=== PATIENT | female | born 1975 | race Two or more races ===

== ENCOUNTER → 2024-11-18 | Outpatient (CLI) | payer OTHER, SELFPAY ==
[2024-11-18 16:17] LABS: Basophils # (Auto) 0.1 Thou/mm3 (0.0-0.2); Basophils % (Auto) 1 % (0-2.5); Eosinophils # (Auto) 0.0 Thou/mm3 (0.0-0.5); Eosinophils % (Auto) 1 % (0-10); Hematocrit 38.6 % (36.0-46.0); Hemoglobin 12.6 g/dL (12.0-16.0); Immature Granulocytes Auto 0.02 Thou/mm3 (0.00-0.00); Lymphocytes # (Auto) 1.8 Thou/mm3 (1.0-4.8); Lymphocytes % (Auto) 29 % (10-50); Mean Corpuscular HGB Conc 32.6 g/dl (31.0-37.0); Mean Corpuscular Hemoglobin 30.9 pg (25.0-35.0); Mean Corpuscular Volume 95 fL (80-100); Monocytes # (Auto) 0.5 Thou/mm3 (0.0-0.8); Monocytes % (Auto) 9 % (0-12); Neutrophils # (Auto) 3.7 Thou/mm3 (1.8-7.7); Neutrophils % (Auto) 61 % (37-80); Nucleated Red Blood Cell # 0.00 Thou/mm3 (0.00-0.00); Nucleated Red Blood Cell % 0 /100 WBC (0); Platelet Count 212 Thou/mm3 (140-440); RDW Standard Deviation 46.7 fL (36.4-46.3); Red Blood Count 4.08 Miln/mm3 (4.00-5.20); White Blood Count 6.1 Thou/mm3 (3.6-11.0)
[2024-11-18 16:34] LABS: Alanine Aminotransferase 36 U/L (10-49); Albumin, Serum 4.5 gm/dL (3.5-5.0); Albumin/Globulin Ratio 1.9 (1.2-2.2); Alkaline Phosphatase 83 U/L (46-116); Anion Gap 13 (7-16); Aspartate Amino Transferase 43 U/L (0-34); BUN/Creatinine Ratio 19 Ratio (12-20); Bilirubin,Total 0.6 mg/dL (0.3-1.2); Blood Urea Nitrogen 17 mg/dL (9-23); Calcium 10.3 mg/dL (8.3-10.6); Calcium (Corrected) 10.3 mg/dL (8.5-10.1); Carbon Dioxide 25.4 mMol/L (20.0-31.0); Chloride 105 mMol/L (98-107); Creatinine (Component) 0.9 mg/dL (0.6-1.3); Globulin 2.4 gm/dL (2.3-3.5); Glucose 139 mg/dL (74-106); Osmolality,Calculated 288 (275-295); Potassium 4.6 mMol/L (3.4-5.1); Sodium 143 mMol/L (136-145); Total Protein 6.9 gm/dL (5.7-8.2); eGFR > 60 See Note
== END | disposition home or self-care (01) ==
PROVIDERS: PCP Physician Assistant; Referring Provider Orthopaedic Surgery; Visit Provider Orthopaedic Surgery
DX: Z79.1 Long term (current) use of non-steroidal anti-inflammatories (NSAID) (principal)
CPT/HCPCS: 36415; 80053; 85025

== ENCOUNTER 2025-01-22 09:15 | Inpatient (IN) | payer MEDICAID, SELFPAY ==
[2025-01-22] VITALS (11 sets, daily range): BP systolic 111–136; BP diastolic 61–80; PULSE 73–129; RESP 16–95; TEMP 36.3–37; O2SAT 92–100; BMI 31.1
--- NOTE | 2025-01-22 09:40 | EKG_ITS ---
[facility] Test Date: 2025-01-22 Pat Name: MARCIN DAWSON Department: Room: - Gender: Female [employer] Former: : 1975 Requested By: Moises Rasheed Order Number: [id number] Reading MD: Moises Rasheed Measurements Intervals [place] Rate: 107 P: 46 WV: 135 QRS: 14 QRSD: 89 T: 29 QT: 300 QTc: 401 Interpretive Statements SINUS TACHYCARDIA ABNORMAL RHYTHM ECG Compared to ECG 02/11/2023 09:36:48 Sinus rhythm no longer present /store/[id number].pdf
--- NOTE | 2025-01-22 09:40 | XR_ITS ---
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 Perihilar edema. Large right pleural effusion Right subclavian Port-A-Cath tip satisfactory position Moderate osteopenia IMPRESSION: Mild CHF Large right pleural effusion
--- NOTE | 2025-01-22 09:40 | PD.EDRME ---
Rapid Medical Screening Exam RME Arrival date/time: 01/22/25 09:15 49-year-old female with a history of type 2 diabetes presents to the emergency room with a chief complaint of bilateral lower extremity swelling and shortness of breath x 3 days I have greeted and performed a focused initial assessment of this patient. A comprehensive ED assessment and evaluation of the patient, analysis of all test results, and completion of the medical decision making process will be conducted by additional ED providers. Chief Complaint: General Adult/Misc Complain Time Seen by Provider: 01/22/25 09:28 Vital signs: Vital Signs Temperature 98.6 F 01/22/25 09:35 Pulse Rate 118 H 01/22/25 09:35 Respiratory Rate 22 H 01/22/25 09:35 Blood Pressure 119/72 01/22/25 09:35 Pulse Oximetry (%) 93 L 01/22/25 09:35 Oxygen Delivery Method Room Air 01/22/25 09:35 Vital signs reviewed by provider: Yes Exam: Bilateral lower extremity +3 pitting edema Clear bilateral lung sounds Clinical Impression: Acute kidney injury/congestive heart failure/
[2025-01-22 10:06] LABS: Basophils # (Auto) 0.1 Thou/mm3 (0.0-0.2); Basophils % (Auto) 1 % (0-2.5); Eosinophils # (Auto) 0.0 Thou/mm3 (0.0-0.5); Eosinophils % (Auto) 0 % (0-10); Hematocrit 26.8 % (36.0-46.0); Hemoglobin 8.9 g/dL (12.0-16.0); Immature Granulocytes Auto 1.00 Thou/mm3 (0.00-0.00); Lymphocytes # (Auto) 2.4 Thou/mm3 (1.0-4.8); Lymphocytes % (Auto) 15 % (10-50); Mean Corpuscular HGB Conc 33.2 g/dl (31.0-37.0); Mean Corpuscular Hemoglobin 30.2 pg (25.0-35.0); Mean Corpuscular Volume 91 fL (80-100); Monocytes # (Auto) 1.2 Thou/mm3 (0.0-0.8); Monocytes % (Auto) 7 % (0-12); Neutrophils # (Auto) 11.7 Thou/mm3 (1.8-7.7); Neutrophils % (Auto) 71 % (37-80); Nucleated Red Blood Cell # 0.07 Thou/mm3 (0.00-0.00); Nucleated Red Blood Cell % 0 /100 WBC (0); Platelet Count 154 Thou/mm3 (140-440); RDW Standard Deviation 48.3 fL (36.4-46.3); Red Blood Count 2.95 Miln/mm3 (4.00-5.20); White Blood Count 16.4 Thou/mm3 (3.6-11.0)
--- NOTE | 2025-01-22 10:13 | XR_ITS ---
Examination: CT abdomen with intravenous contrast CT pelvis with intravenous contrast 2-D coronal reconstructions 2-D sagittal reconstructions Date and time of exam: 01/22/2025 at 12:35 p.m. INDICATION: Epigastric pain. COMPARISON: Bilateral diagnostic mammograms 05/25/2022. Chest radiograph 01/22/2025 at 9:43 a.m. CTDI: vol (mGy) 8.84 DLP: (mGycm) 538 Technique: Multiple axial sections of the abdomen and pelvis have been obtained. 64 slice high-resolution scanner used. 3 mm axial sections have been obtained, post intravenous injection of 60 mL of Isovue-370 2-D sagittal, coronal reconstructions obtained. Low dose protocols were performed. One or more of the following dose reduction techniques were used; automated exposure control, adjustment of the mA and/or KV according to patient size, use of iterative reconstruction technique. FINDINGS: Lower chest: Since prior mammograms, there has been interval development of diffuse pathologic skin thickening throughout the partially major right breast with multiple heterogeneously enhancing/rim-enhancing lesions in the right breast parenchyma, the largest in the lower inner quadrant measuring 6.3 cm TR on axial image 23. There is also less pronounced skin thickening of the partially imaged left breast. A moderate right-sided pleural effusion is present with compressive atelectasis. There is lymphadenopathy at the partially imaged right hilum. Minimal left-sided pleural fluid is seen. There is diffuse interlobular septal thickening and bronchial wall thickening in the right lung, greater on the right side. Nodularity is also present in both lungs, including dominant in store representative nodule in the right lower lobe measuring 9 mm (axial 21). Nonspecific dense subpleural opacification in the partially region lingula measures 2 cm wide in the [id number] (axial image 1). Liver: There are numerous heterogeneously hypoenhancing lobulated masses throughout the liver parenchyma consistent with metastases. A in store representative lesion in hepatic segment 7 measures approximately 3.6 cm AP on axial image 52, exhibiting some confluence with adjacent posterior located smaller lesion and larger medially located lesion. There is prominent diffuse hepatomegaly. Biliary system: No calcified gallstones or findings concerning for acute cholecystitis or biliary ductal obstruction. Spleen: Within normal limits of size. No solid mass. Pancreas: No apparent infiltrative mass. No main pancreatic duct dilatation. No acute inflammatory changes. Adrenal glands: Bilateral hypoenhancing adrenal nodules are present which are suspicious for metastatic disease. Kidneys and ureters: There is downward displacement of the right kidney by the enlarged liver. No solid mass. No calculi or hydroureteronephrosis. No evidence for acute pyelonephritis. Bladder: Suboptimal assessment due to under distention but no calculus is seen. Pelvic organs: Mild pelvic floor prolapse. Anteverted uterus. Very mild ascites and mild peritoneal thickening. Lymph nodes/retroperitoneum: Enlarged lymph nodes are present in the abdomen, including one abutting the medial side of the right hepatic lobe measuring 0.5 cm short axis (axial image 100). This exhibits homogeneous enhancement. A dominant heterogeneously hypoenhancing lymph node adjacent to the left diaphragmatic crura likely represents a metastatic lymph node that measures 0.7 cm short axis (axial image 71). No hematoma. Vessels: No abdominal aortic aneurysm. Bowel/Peritoneal cavity: No bowel obstruction. Colonic diverticulosis without evidence for acute diverticulitis. No evidence for acute appendicitis. Mild perihepatic ascites and pelvic ascites. No free air. Abdominal/Pelvic wall: Diffuse edematous skin thickening and subcutaneous edema identified in the abdominal wall, most pronounced on the right anteriorly. No evidence for abdominal wall abscess or mass. Skin thickening and subcutaneous edema also noted in the proximal thighs, greater on the right. Musculoskeletal: No recent fractures or aggressive bone lesions detected. 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 Additional lymph node metastases and bilateral adrenal metastases identified in the upper abdomen. Very mild ascites noted.
[2025-01-22 10:20] LABS: INR 1.3 (0.9-1.3); Partial Thromboplastin Time 32.9 Seconds (22.0-36.0); Prothrombin Time 13.3 Seconds (9.0-12.2)
[2025-01-22 10:22] LABS: B-Type Natriuretic Peptide 32 pg/mL (0-100)
[2025-01-22 10:47] LABS: Alanine Aminotransferase 422 U/L (10-49); Albumin, Serum 3.5 gm/dL (3.5-5.0); Albumin/Globulin Ratio 1.3 (1.2-2.2); Alkaline Phosphatase 376 U/L (46-116); Anion Gap 10 (7-16); Aspartate Amino Transferase 341 U/L (0-34); BUN/Creatinine Ratio 19 Ratio (12-20); Bilirubin,Total 1.1 mg/dL (0.3-1.2); Blood Urea Nitrogen 21 mg/dL (9-23); Calcium 9.6 mg/dL (8.3-10.6); Calcium (Corrected) 10.0 mg/dL (8.5-10.1); Carbon Dioxide 20.6 mMol/L (20.0-31.0); Chloride 98 mMol/L (98-107); Creatinine (Component) 1.1 mg/dL (0.6-1.3); Estimated Creatinine Clearance 58.2 mL/min (>60); Globulin 2.6 gm/dL (2.3-3.5); Glucose 188 mg/dL (74-106); LDH (Lactate Dehydrogenase) 2178 U/L (120-246); Magnesium 2.2 mg/dL (1.6-2.6); Osmolality,Calculated 266 (275-295); Potassium 4.4 mMol/L (3.4-5.1); Sodium 129 mMol/L (136-145); Total Protein 6.1 gm/dL (5.7-8.2); Troponin I < 0.002 ng/mL (0.0-0.045); eGFR > 60 See Note
[2025-01-22] MEDS: FAMOTIDINE INJ 10 MG/ML VIAL 2 ML 20 MG IVP (10:55)
--- NOTE | 2025-01-22 13:09 | PD.EDWEAK ---
ED Weakness RME/HPI General Chief complaint: General Adult/Misc Complain Stated complaint: JAYY LEG PAIN, WEAK, ABD SWELLING Time Seen by Provider: 01/22/25 09:28 Arrival date/time: 01/22/25 09:15 Limitations: no limitations RME / HPI RME / HPI Narrative: 01/22/25 09:15 49-year-old female with a history of type 2 diabetes presents to the emergency room with a chief complaint of bilateral lower extremity swelling and shortness of breath x 3 days I have greeted and performed a focused initial assessment of this patient. A comprehensive ED assessment and evaluation of the patient, analysis of all test results, and completion of the medical decision making process will be conducted by additional ED providers. DR. DIAZ MAIN ED EVALUATION: 49 year old female with history of left breast CA, s/p lumpectomy in 2022 and radiation therapy in 2023, diabetes presents to the ED for evaluation of abdominal discomfort and bloating sensation, leg swelling, and shortness of breath beginning 3 days ago. Accompanied by a nonproductive cough. Reports her shortness of breath is aggravated with exertion and lying flat Adding she is requiring multiple pillow to sleep at night. Denies any history of similar symptoms. Denies fevers, chills, chest pain, abdominal pain, n/v/d, or urinary symptoms. Exam: Bilateral lower extremity +3 pitting edema Clear bilateral lung sounds Impression: Acute kidney injury/congestive heart failure/ Related Data Home Medications ?Medication ?Instructions ?Recorded ?Confirmed amitriptyline 10 mg tablet 10 mg PO HS 07/17/22 02/11/23 semaglutide 14 mg tablet (Rybelsus) 14 mg PO QDAY 07/17/22 02/11/23 Previous Rx's ?Medication ?Instructions ?Recorded docusate sodium 100 mg capsule 100 mg PO BID #40 caps 02/12/23 (Colace) hydrocodone 5 mg-acetaminophen 325 1 tab PO Q6H PRN pain (scale score 02/12/23 mg tablet 7-10) #10 tabs ibuprofen 600 mg tablet 600 mg PO Q8H PRN pain (scale 02/12/23 score 4-6) #15 tabs hydrocodone 5 mg-acetaminophen 325 1 tab PO BID PRN pain #10 tabs 04/15/23 mg tablet Allergies Allergy/AdvReac Type Severity Reaction Status Date / Time No Known Allergies Allergy Verified 01/22/25 09:17 Review of Systems Review of Systems Systems Reviewed: All systems reviewed, normal except as documented Past Medical History Past Medical History RESPIRATORY: Positive Asthma REPRODUCTIVE: Positive Breast Cancer (left breast) and Previous Pregnancies ENDOCRINE: Positive Endocrine Disorders and Diabetes Mellitus Type 2 PSYCHO/SOCIAL: Positive Depression and Anxiety OTHER HISTORY: Positive Cancer and Breast Cancer (left breast) Surgical History SURGICAL: Positive Lumpectomy, Tubal Ligation and Section Social History SMOKING STATUS: Never smoker ED Exam General Limitations: Present no limitations General appearance: Present alert and in no apparent distress Head Head exam: Present atraumatic Eye Eye exam: Present normal appearance, PERRL and EOMI ENT ENT exam: Present normal exam, normal oropharynx and mucous membranes moist Neck Neck exam: Present normal inspection, full ROM and trachea midline Chest Chest inspection: Present normal inspection and symmetric chest wall rise Respiratory Respiratory exam: Present normal lung sounds bilaterally and other (mildly increased respiratory rate) Cardiovascular Cardiovascular exam: Present regular rate, normal rhythm and normal heart sounds Abdominal Exam Abdominal exam: Present soft, normal bowel sounds and other (Upper mid abdomen anteriorly was firm with possible mass ); Absent tenderness, guarding, rebound or rigidity Extremities Exam Extremities exam: Present full ROM and other (2+ pitting edema BLE to the pretibial area ) Back Exam Back exam: Present normal inspection and full ROM Neurological Exam Neurological exam: Present alert, oriented X3 and CN II-XII intact Psychiatric Psychiatric exam: Present normal affect and normal mood Skin Skin exam: Present warm, dry, intact and pallor Course Quality Measures none Orders Category Date Time Status Admit to Inpatient Status Routine Admission 01/22/25 15:46 Active Patient Condition Routine Admission 01/22/25 15:46 Ordered Activity as Tolerated Routine Care 01/22/25 15:48 Ordered Bedside COVID-19 Antigen Test NOW Care 01/22/25 15:42 Active COVID-19 Screening Questionnaire NOW Care 01/22/25 15:[address] Screening NOW Care 01/22/25 10:13 Active Lifestyle Consultant NOW Care 01/22/25 10:03 Active Continuous Pulse Oximetry NOW Care 01/22/25 10:03 Completed Decision to Admit X1 Care 01/22/25 15:19 Completed EKG (ED ONLY) *Do not use* NOW Care 01/22/25 09:40 Completed Fluid restriction QSHIFT Care 01/22/25 15:51 Active In and Out Catheter X1 Care 01/22/25 15:46 Active Insert IV NOW Care 01/22/25 10:03 Active Intake and Output QSHIFT Care 01/22/25 16:00 Ordered Notify provider NEEDED Care 01/22/25 15:46 Active Obtain weight daily Care 01/22/25 15:48 Active Strict Intake and Output Q1H Care 01/22/25 16:00 Ordered Strict Intake and Output Q1H Care 01/22/25 17:00 Ordered Strict Intake and Output Q1H Care 01/22/25 18:00 Ordered Strict Intake and Output Q1H Care 01/22/25 19:00 Ordered Strict Intake and Output Q1H Care 01/22/25 20:00 Ordered Strict Intake and Output Q1H Care 01/22/25 21:00 Ordered Strict Intake and Output Q1H Care 01/22/25 22:00 Ordered Strict Intake and Output Q1H Care 01/22/25 23:00 Ordered Strict Intake and Output Q1H Care 01/23/25 00:00 Ordered Strict Intake and Output Q1H Care 01/23/25 01:00 Ordered Strict Intake and Output Q1H Care 01/23/25 02:00 Ordered Strict Intake and Output Q1H Care 01/23/25 03:00 Ordered Strict Intake and Output Q1H Care 01/23/25 04:00 Ordered Strict Intake and Output Q1H Care 01/23/25 05:00 Ordered Strict Intake and Output Q1H Care 01/23/25 06:00 Ordered Strict Intake and Output Q1H Care 01/23/25 07:00 Ordered Strict Intake and Output Q1H Care 01/23/25 08:00 Ordered Strict Intake and Output Q1H Care 01/23/25 09:00 Ordered Strict Intake and Output Q1H Care 01/23/25 10:00 Ordered Strict Intake and Output Q1H Care 01/23/25 11:00 Ordered Strict Intake and Output Q1H Care 01/23/25 12:00 Ordered Strict Intake and Output Q1H Care 01/23/25 13:00 Ordered Strict Intake and Output Q1H Care 01/23/25 14:00 Ordered Strict Intake and Output Q1H Care 01/23/25 15:00 Ordered Strict Intake and Output Routine Care 01/22/25 15:52 Ordered Diet Carbohydrate Consistent Diet 01/22/[address] abdomen pelvis w con Stat Exams 01/22/25 10:13 Completed EKG (ED Only) Stat Exams 01/22/25 09:40 Draft US venous doppler LE BI Routine Exams 01/22/25 15:54 Taken XR chest 2V Stat Exams 01/22/25 09:40 Completed B-Type Natriuretic Peptide Stat Lab 01/22/25 09:45 Completed CBC AM DRAW Lab 01/23/25 05:00 Ordered CBC Stat Lab 01/22/25 09:45 Completed Comprehensive Metabolic Panel AM DRAW Lab 01/23/25 05:00 Ordered Comprehensive Metabolic Panel AM DRAW Lab 01/24/25 05:00 Ordered Comprehensive Metabolic Panel AM DRAW Lab 01/25/25 05:00 Ordered Comprehensive Metabolic Panel Stat Lab 01/22/25 09:45 Completed Drug Screen,Urine Stat Lab 01/22/25 14:22 Completed LDH (Lactate Dehydrogenase) Stat Lab 01/22/25 09:45 Completed Magnesium AM DRAW Lab 01/23/25 05:00 Ordered Magnesium AM DRAW Lab 01/24/25 05:00 Ordered Magnesium AM DRAW Lab 01/25/25 05:00 Ordered Magnesium Stat Lab 01/22/25 09:45 Completed Partial Thromboplastin Time Stat Lab 01/22/25 09:45 Completed Phosphorous AM DRAW Lab 01/23/25 05:00 Ordered Phosphorous AM DRAW Lab 01/24/25 05:00 Ordered Phosphorous AM DRAW Lab 01/25/25 05:00 Ordered Prothrombin Time with INR Stat Lab 01/22/25 09:45 Completed Troponin I Stat Lab 01/22/25 09:45 Completed Urinalysis, C/S if Indicated Stat Lab 01/22/25 14:15 Completed Urine Culture Stat Lab 01/22/25 14:15 Received Famotidine Inj [Pepcid Inj] Med 01/22/25 10:13 Discontinued 20 mg IVP X1 ONE Furosemide Inj [Lasix Inj] Med 01/22/25 10:04 Discontinued 40 mg IVP X1 ONE Furosemide [Lasix] Med 01/22/25 15:51 Discontinued 40 mg PO X1 ONE HYDROcodone*/APAP 5/325 [[place] 5/325] Med 01/22/25 15:46 Active 1 tab PO Q4HR PRN Heparin Inj Med 01/22/25 22:00 Discontinued 5,000 unit SC Q8HR Ibuprofen Tab [Motrin Tab] Med 01/22/25 15:46 Active 600 mg PO Q6H PRN Ondansetron Inj [Zofran Inj] Med 01/22/25 15:46 Active 4 mg IVP Q6H PRN Senna [Senokot] Med 01/22/25 15:46 Active 1 tab PO QDAY PRN metOLazone [Zaroxolyn] Med 01/22/25 10:04 Discontinued 5 mg PO X1 ONE Code Status Routine Oth 01/22/25 15:46 Ordered Oxygen Delivery NOW RT 01/22/25 10:03 Active Vital Signs Vital signs: Vital Signs Temperature 98.6 F 01/22/25 09:35 Pulse Rate 118 H 01/22/25 09:35 Respiratory Rate 22 H 01/22/25 09:35 Blood Pressure 119/72 01/22/25 09:35 Pulse Oximetry (%) 93 L 01/22/25 09:35 Oxygen Delivery Method Room Air 01/22/25 09:35 Pulse ox is 93% on room air which is low. Weakness MDM Narrative MDM Narrative:: Claudia Delgado am scribing for and in the presence of Dr. Diaz. Patient data External records reviewed:: [facility] previous records Clinical information provided by:: patient Social determinants that could affect healthcare access:: none Patient has the following chronic illnesses:: left breast CA, s/p lumpectomy in 2022 and radiation therapy in 2023, diabetes How is presenting disease/condition affected by chronic disease/condition?: exacerbated by Evaluation data The following diagnostics were reviewed and interpreted by me:: lab results, radiology exam(s) and EKG tracing(s) (EKG @ 12:30 PM. Sinus tachycardia, rate 107, no STEMI. ) Lab and/or radiology exams considered but not ordered:: None Interpretation Summary: Ordering Physician: Moises Turner Date of Service: 01/22/25 Procedure(s): XR chest 2V Accession Number(s): [id number] cc: Moises Turner; Seferino Brenner MD~ 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 Perihilar edema. Large right pleural effusion Right subclavian Port-A-Cath tip satisfactory position Moderate osteopenia IMPRESSION: Mild CHF Large right pleural effusion Dictated By: Seferino Brenner MD Signed By: <Electronically signed by Seferino Brenner MD in [place]> 01/22/25 0952 Ordering Physician: Pb Diaz MD Date of Service: 01/22/25 Procedure(s): CT abdomen pelvis w con Accession Number(s): [id number] cc: Pb Diaz MD; Brian Castano ; Robert Olmos DO~ Examination: CT abdomen with intravenous contrast CT pelvis with intravenous contrast 2-D coronal reconstructions 2-D sagittal reconstructions Date and time of exam: 01/22/2025 at 12:35 p.m. INDICATION: Epigastric pain. COMPARISON: Bilateral diagnostic mammograms 05/25/2022. Chest radiograph 01/22/2025 at 9:43 a.m. CTDI: vol (mGy) 8.84 DLP: (mGycm) 538 Technique: Multiple axial sections of the abdomen and pelvis have been obtained. 64 slice high-resolution scanner used. 3 mm axial sections have been obtained, post intravenous injection of 60 mL of Isovue-370 2-D sagittal, coronal reconstructions obtained. Low dose protocols were performed. One or more of the following dose reduction techniques were used; automated exposure control, adjustment of the mA and/or KV according to patient size, use of iterative reconstruction technique. FINDINGS: Lower chest: Since prior mammograms, there has been interval development of diffuse pathologic skin thickening throughout the partially major right breast with multiple heterogeneously enhancing/rim-enhancing lesions in the right breast parenchyma, the largest in the lower inner quadrant measuring 6.3 cm TR on axial image 23. There is also less pronounced skin thickening of the partially imaged left breast. A moderate right-sided pleural effusion is present with compressive atelectasis. There is lymphadenopathy at the partially imaged right hilum. Minimal left-sided pleural fluid is seen. There is diffuse interlobular septal thickening and bronchial wall thickening in the right lung, greater on the right side. Nodularity is also present in both lungs, including dominant videotape sales representative nodule in the right lower lobe measuring 9 mm (axial 21). Nonspecific dense subpleural opacification in the partially region lingula measures 2 cm wide in the [id number] (axial image 1). Liver: There are numerous heterogeneously hypoenhancing lobulated masses throughout the liver parenchyma consistent with metastases. A videotape sales representative lesion in hepatic segment 7 measures approximately 3.6 cm AP on axial image 52, exhibiting some confluence with adjacent posterior located smaller lesion and larger medially located lesion. There is prominent diffuse hepatomegaly. Biliary system: No calcified gallstones or findings concerning for acute cholecystitis or biliary ductal obstruction. Spleen: Within normal limits of size. No solid mass. Pancreas: No apparent infiltrative mass. No main pancreatic duct dilatation. No acute inflammatory changes. Adrenal glands: Bilateral hypoenhancing adrenal nodules are present which are suspicious for metastatic disease. Kidneys and ureters: There is downward displacement of the right kidney by the enlarged liver. No solid mass. No calculi or hydroureteronephrosis. No evidence for acute pyelonephritis. Bladder: Suboptimal assessment due to under distention but no calculus is seen. Pelvic organs: Mild pelvic floor prolapse. Anteverted uterus. Very mild ascites and mild peritoneal thickening. Lymph nodes/retroperitoneum: Enlarged lymph nodes are present in the abdomen, including one abutting the medial side of the right hepatic lobe measuring 0.5 cm short axis (axial image 100). This exhibits homogeneous enhancement. A dominant heterogeneously hypoenhancing lymph node adjacent to the left diaphragmatic crura likely represents a metastatic lymph node that measures 0.7 cm short axis (axial image 71). No hematoma. Vessels: No abdominal aortic aneurysm. Bowel/Peritoneal cavity: No bowel obstruction. Colonic diverticulosis without evidence for acute diverticulitis. No evidence for acute appendicitis. Mild perihepatic ascites and pelvic ascites. No free air. Abdominal/Pelvic wall: Diffuse edematous skin thickening and subcutaneous edema identified in the abdominal wall, most pronounced on the right anteriorly. No evidence for abdominal wall abscess or mass. Skin thickening and subcutaneous edema also noted in the proximal thighs, greater on the right. Musculoskeletal: No recent fractures or aggressive bone lesions detected. 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 Additional lymph node metastases and bilateral adrenal metastases identified in the upper abdomen. Very mild ascites noted. Dictated By: Robert Olmos DO Signed By: <Electronically signed by Robert Olmos DO in [place]> 01/22/25 1311 Ordering Physician: Pablo Askew DO Date of Service: 01/22/25 Procedure(s): US venous doppler LE BI Accession Number(s): [id number] cc: Brian Castano ; Robert Olmos DO; Pablo Askew DO~ Examination: Venous duplex lower extremity sonogram, bilateral. Date and time of exam: 01/22/2025 at 4:11 p.m. INDICATION: Bilateral leg pain and swelling for 1 week. History of left breast cancer. Technique: Multiple sonographic images of the deep venous system have been obtained. B-mode/2-D grayscale imaging of vascular structures and Doppler spectral analysis (waveforms) and color performed Both legs are examined. Findings: Deep venous systems do not demonstrate abnormal echogenicity. All visualized deep veins exhibit compressibility. All visualized deep veins exhibit augmentation. Pulsatile waveforms identified bilaterally. Impression: Negative for deep vein thrombosis in either lower extremity. Pulsatile waveforms may be due to increased right heart pressure. Dictated By: Robert Olmos DO Signed By: <Electronically signed by Robert Olmos DO in [place]> 01/22/25 1645 Medications / Prescriptions Medications or Prescriptions considered but not ordered:: None Medication administrations:: Medication Administration History Hydrocodone Bitart/Acetaminophen (Hydrocodone/Apap 5/325 Tablet) 1 tab PO Q4HR PRN PRN Reason: PAIN SCALE 4-10(Mod-Sev Stop: 01/27/25 15:45 Heparin Sodium (Porcine) (Heparin Sod Inj 5000 Unit/Ml Vial) 5,000 unit SC Q12HR [place] Stop: 02/05/25 20:59 Ibuprofen (Ibuprofen Tab 600 Mg Tablet) 600 mg PO Q6H PRN PRN Reason: Pain Scale 1-3 (Mild or fever) Stop: 02/21/25 15:45 Ondansetron HCl (Ondansetron Inj 2 Mg/Ml Inj 2 Ml) 4 mg IVP Q6H PRN; Protocol PRN Reason: NAUSEA OR VOMITING Stop: 02/21/25 15:45 Sennosides (Senna Tablet) 1 tab PO QDAY PRN; Protocol PRN Reason: constipation Stop: 02/21/25 15:45 Discontinued Medications Famotidine (Famotidine Inj 10 Mg/Ml Vial 2 Ml) 20 mg IVP X1 ONE Stop: 01/22/25 10:14 Last Admin: 01/22/25 10:55 Dose: 20 mg Documented By: SANA Furosemide (Furosemide Inj 10 Mg/Ml 4ml Vial) 40 mg IVP X1 ONE Stop: 01/22/25 10:05 Last Admin: 01/22/25 10:53 Dose: Not Given Documented By: VG Non-Admin Reason: Discontinued Furosemide (Furosemide 40 Mg Tablet) 40 mg PO X1 ONE Stop: 01/22/25 15:52 Last Admin: 01/22/25 16:01 Dose: 40 mg Documented By: VG Heparin Sodium (Porcine) (Heparin Sod Inj 5000 Unit/Ml Vial) 5,000 unit SC Q8HR [place] Stop: 02/05/25 21:59 Metolazone (Metolazone 2.5 Mg Tablet) 5 mg PO X1 ONE Stop: 01/22/25 10:05 Last Admin: 01/22/25 10:53 Dose: Not Given Documented By: VG Non-Admin Reason: Discontinued See above Consultations Consultation(s) initiated? (list below): Yes Consultation #1 (Physician, Specialty, Details): I spoke with radiology oncology Dr. Koo. Discussed patients PMHx, HPI, ED course, exam findings, labs, and radiology results. He agrees to see patient in his office on Saturday. Consultation #2 (Physician, Specialty, Details): I spoke with hospitalist team for admission. Diagnosis Weakness Differential Diagnosis: anemia, hypothyroidism, sepsis and dehydration Most likely diagnosis given after review of the tests above:: Right pleural effusion Dyspnea Metastatic breast cancer Admission Indicated Admission indicated?: indicated Admission Request Was there a request for admission?: Yes Admission Attestation Admission request attestation: Discussed case with [] from Hospitalist service regarding admission. Discussed patients ED course, exam findings, labs, and radiology results. The Hospitalist [agrees,declines] to accept the patient for admission. Disposition Plan Disposition Plan: Admit Discharge Plan Plan Patient Disposition: Admit Acute Care w/in Hospital Problem List Clinical Impression: Pleural effusion, right, Breast cancer, Dyspnea
[2025-01-22 14:29] LABS: Collection Type, Urine Clean Catch
[2025-01-22 14:46] LABS: Bacteria,Urine Rare; Bilirubin,Urine Negative (Negative); Blood,Urine Trace (Negative); Clarity,Urine Clear (Clear/Hazy); Color,Urine Yellow (Lt Yel-Yel); Glucose, Urine Negative (Negative); Ketones,Urine 1+ (Negative); Leukocyte Esterase,Urine Positive (Negative); Nitrite,Urine Positive (Negative); PH,Urine 6.0 (5.0-7.0); Protein,Urine 1+ (Neg - Trace); RBC,Urine 7 /hpf (0-3); Specific Gravity,Urine 1.044 (1.001-1.035); Squamous Epithelial Cell,Urine 1 /hpf (0-5); Urobilinogen,Urine Negative mg/dL (0.0-1.0); WBC,Urine 8 /hpf (0-5)
[2025-01-22 14:49] LABS: Amphetamine/Methamp Scrn,U Negative (Negative); Barbiturate Screen,Urine Negative (Negative); Benzodiazepines Screen,Urine Negative (Negative); Benzoylecgonine Screen, Ur Negative (Negative); Fentanyl Screen,Urine Negative (Negative); Opiate Screen,Urine Negative (Negative); THC Screen,Urine Negative (Negative)
[2025-01-22 15:02] LABS: Culture Indicated,Urine Yes
--- NOTE | 2025-01-22 15:54 | XR_ITS ---
Examination: Venous duplex lower extremity sonogram, bilateral. Date and time of exam: 01/22/2025 at 4:11 p.m. INDICATION: Bilateral leg pain and swelling for 1 week. History of left breast cancer. Technique: Multiple sonographic images of the deep venous system have been obtained. B-mode/2-D grayscale imaging of vascular structures and Doppler spectral analysis (waveforms) and color performed Both legs are examined. Findings: Deep venous systems do not demonstrate abnormal echogenicity. All visualized deep veins exhibit compressibility. All visualized deep veins exhibit augmentation. Pulsatile waveforms identified bilaterally. Impression: Negative for deep vein thrombosis in either lower extremity. Pulsatile waveforms may be due to increased right heart pressure.
--- NOTE | 2025-01-22 15:55 | ESHP_ITS ---
<Statement entered by Pawan Patel MD - 01/23/25 14:47> Patient seen and examined at bedside. I discussed and supervised with the international affairs vice president physician who took care of this patient. I personally saw and examined the patient. I agree with most of the assessment and plan. Plan of care discussed with attending Dr. Askew. Pawan Patel MD PGY-2 Documentation for date of: 01/22/25 HPI History of Present Illness History of present illness: 49-year-old female with past medical history T2DM and left invasive ductal carcinoma (Onco Dr. Koo) status post lumpectomy 2022 and radiation 2023 presents with bilateral lower extremity swelling shortness of breath x 3 days. Patient reported bilateral leg pain x 6 days, ibuprofen did not help. Reported abdominal pain in mid epigastric x 2 days, bloated in nature. Reported shortness of breath x 3 days. Reported all symptoms are new to her. Last time visited oncologist was late November with Dr. Cabello. Next appointment in February. Since last radiation that was 2023, no scan after. Denied history of smoking, alcohol, drug use. ED: Vital signs stable except for tachycardic 118 and tachypneic 22 Labs WBC 16.4 hemoglobin 8.9 PT 13.3 sodium 129 AST 341 ALT 422 alk phos 378 lactate dehydrogenase 2178 positive UA. CXR mild CHF, large right pleural effusion. CTAP showed metastasis to right breast, liver, lymph nodes, adrenal glands. Dr. Koo was consulted. Patient is instructed to call Dr. Koo's office to see Dr. Koo outpatient on Saturday at 1 PM. Exam Vital Signs Temp Pulse Resp BP Pulse Ox O2 Del Method 97.8 F 100 16 124/70 95 Room Air 01/22/25 15:14 01/22/25 15:14 01/22/25 15:14 01/22/25 15:14 01/22/25 15:14 01/22/25 15:14 Narrative Exam General: AOx3, Angolan speaking, no acute distress, able to speak full sentences HEENT: NC/AT, mucous membranes moist, bilateral sclera anicteric Cardiovascular: tachycardia, S1/S2 present, no murmurs appreciated Pulmonary: diminished breath sounds bilateral lower lobes, no rales/rhonchi/wheezes Abdominal: soft, tenderness to palpation on LUQ, distended, no rebound/guarding, normal bowel sounds present Musculoskeletal: normal ROM, no peripheral edema Skin: warm and dry, intact, no rashes, Neuro: CN II-XII intact, no focal deficits Results: Labs 01/23/25 05:39 01/23/25 05:39 Labs: Short CBC 01/22/25 Range/Units 09:45 WBC 16.4 H (3.6-11.0) Thou/mm3 Hgb 8.9 L (12.0-16.0) g/dL Hct 26.8 L (36.0-46.0) % Plt Count 154 (140-440) Thou/mm3 BMP 01/22/25 09:45 Sodium 129 L Potassium 4.4 Chloride 98 Carbon Dioxide 20.6 BUN 21 Creatinine 1.1 Glucose 188 H Calcium 9.6 Cardiac Enzymes 01/22/25 Range/Units 09:45 Troponin I < 0.002 (0.0-0.045) ng/mL Liver Function 01/22/25 Range/Units 09:45 Total Bilirubin 1.1 (0.3-1.2) mg/dL AST 341 H (0-34) U/L ALT 422 H (10-49) U/L Alkaline Phosphatase 376 H (46-116) U/L Albumin 3.5 (3.5-5.0) gm/dL Urine 01/22/25 Range/Units 14:15 Urine Color Yellow (Lt Yel-Yel) Urine Clarity Clear (Clear/Hazy) Urine pH 6.0 (5.0-7.0) Ur Specific [place] 1.044 H (1.001-1.035) Urine Protein 1+ A (Neg - Trace) Urine Glucose (UA) Negative (Negative) Quality Measures Quality Measures VTE prophylaxis Medications Home Medications and Allergies Home Medications ?Medication ?Instructions ?Recorded ?Confirmed ?Type semaglutide 14 mg tablet (Rybelsus) 14 mg PO QDAY 05/1001/22/25 History anastrozole 1 mg tablet 1 mg PO .q day 01/22/2510/09 History Allergies Allergy/AdvReac Type Severity Reaction Status Date / Time No Known Allergies Allergy Verified 01/22/25 09:17 Visit Medications Hydrocodone Bitart/Acetaminophen (Hydrocodone/Apap 5/325 Tablet) 1 tab PO Q4HR PRN PRN Reason: PAIN SCALE 4-10(Mod-Sev Stop: 01/27/25 15:45 Furosemide (Furosemide 40 Mg Tablet) 40 mg PO X1 ONE Stop: 01/22/25 15:52 Heparin Sodium (Porcine) (Heparin Sod Inj 5000 Unit/Ml Vial) 5,000 unit SC Q8HR [place] Stop: 02/05/25 21:59 Ibuprofen (Ibuprofen Tab 600 Mg Tablet) 600 mg PO Q6H PRN PRN Reason: Pain Scale 1-3 (Mild or fever) Stop: 02/21/25 15:45 Ondansetron HCl (Ondansetron Inj 2 Mg/Ml Inj 2 Ml) 4 mg IVP Q6H PRN; Protocol PRN Reason: NAUSEA OR VOMITING Stop: 02/21/25 15:45 Sennosides (Senna Tablet) 1 tab PO QDAY PRN; Protocol PRN Reason: constipation Stop: 02/21/25 15:45 Discontinued Medications Famotidine (Famotidine Inj 10 Mg/Ml Vial 2 Ml) 20 mg IVP X1 ONE Stop: 01/22/25 10:14 Last Admin: 01/22/25 10:55 Dose: 20 mg Furosemide (Furosemide Inj 10 Mg/Ml 4ml Vial) 40 mg IVP X1 ONE Stop: 01/22/25 10:05 Last Admin: 01/22/25 10:53 Dose: Not Given Metolazone (Metolazone 2.5 Mg Tablet) 5 mg PO X1 ONE Stop: 01/22/25 10:05 Last Admin: 01/22/25 10:53 Dose: Not Given Assessment & Plan Plan # 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 Oncologist, Dr. Cabello. CT showed metastasis to right breast, liver, lymph nodes, adrenal gland. Labs are largely deranged: WBC 16.4 hemoglobin 8.9 PT 13.3 sodium 129 AST 341 ALT 422 alk phos 378 lactate dehydrogenase 2178. Patient was unaware of metastasis. Reported last appointment with Dr. Cabello was late November, next appointment is in February. Patient was not aware of any metastasis previously. Reported no imaging after radiation in 2023. Patient reported significant orthopnea requiring multiple pillows. Abdominal pain and bloatedness likely due to metastasis to liver. Plan: - Dr. Koo was consulted in ED, recommeded seeing patient on Saturday in clinic at 1 PM - Dr. Cabello, oncologist, consulted to see patient over the weekend, appreciate recs - Pending Echo - Plan to do thoracentesis tomorrow and send to patho to rule out any metastasis to lungs # Bilateral pitting edema # Large right pleural effusion # Congestive heart failure 3+ bilateral pitting edema with acute onset shortness of breath. No history of cardiac diseases. History of breast radiation. DDx: cardiac-related CHF vs. hepatocardiac syndrome vs. CHF-induced pleural effusion vs. metastasis to lungs Plan: - Low sodium diet - Pending Echo - Diuresis Lasix - Ultrasound DVT in the setting of cancer Health Maintenance: Code status: Full DVT prophylaxis: Heparin GI prophylaxis: None Diet: Low sodium diet Melendez: No Lines: PIV Supplemental O2: None Disposition: Med Tele Assessment and plan discussed with my attending physician Dr. Patel and Dr. Kumar (PGY-2). Dr. Saucedo (PGY-1) ? administrative resident Attending Provider Attestation/Addendum I or my resident physicians have discussed care with the ED physician and I have made the decision to admit. I have discussed and was present for the essential components of the history, physical examination, diagnosis, and treatment plan with the resident. I agree with the patient's care as documented by the resident and amended herein by me. Thaddeus Askew DO. Although this document has been carefully reviewed, there may still be some phonetic and other typographical errors. These errors are purely grammatical due to imperfections in the software program and should not be construed in any way to compromise the substance of the patient's medical care during this visit. Patient seen and evaluated in the ED patient is a 49-year-old female with a significant past medical history of invasive ductal carcinoma of the left breast, status postlumpectomy and partial left mastectomy, was never treated with chemotherapy however was treated with anastrozole which she is currently on and radiation therapy with Dr. Koo. The patient was reported to have refused chemotherapy at the time due to being scared of the medication and when offered anastrozole she decided to take that instead. The patient arrived in the ED for shortness of breath, cough and worsening lower extremity edema. In the ED, the patient was tachycardic with a pulse of 106, tachypneic with a respiratory rate of 35, afebrile and on room air SpO2 92%. The patient also demonstrated cough. Significant labs included a WBC of 16.4, hemoglobin 8.9 with no obvious signs of bleeding, neutrophils and lymphocyte count was within normal limits however there was elevation in immature granulocytes. And sodium of 129. Albumin was 3.5, urinalysis was positive, LDH was 2178, EKG demonstrated sinus tachycardia and her liver enzymes were elevated to include an AST of 341, ALT 422 and did not ALP of 376. CT abdomen pelvis in short demonstrated diffuse invasive inflammatory breast carcinoma on the right with multiple right breast masses. A moderate right pleural effusion was also noted, diffuse hepatomegaly with numerous hypodense masses consistent with metastasis were noted. Additional lymph node metastasis and bilateral adrenal metastasis were also identified. Mild ascites was also noted. At this time, we will admit the patient to med/tele for numerous lab abnormalities, possible UTI, possible tumor lysis syndrome and workup for metastatic breast cancer. Patient follows with Dr. Brennen booker, oncology, last seen in November, he was consulted during this visit, we appreciate recommendations. We will order a CT head with and without contrast to establish any brain metastasis, we will attempt a thoracentesis tomorrow, blood and urine cultures are pending, DVT ultrasound of the bilateral lower extremities was also ordered however negative for DVT. An echocardiogram was ordered, low-sodium diet was also ordered and the patient was placed on Lasix 40 mg daily. I also started the patient on coverage for community-acquired pneumonia with ceftriaxone and azithromycin for any potential bacteria causes of her cough. Appreciate all specialist recommendations, will continue to monitor closely, we did unfortunately have to explain to the patient that her breast cancer has returned and has metastasized to multiple regions of her body. Her son was at bedside at time of this conversation.
--- NOTE | 2025-01-22 16:52 | ECHO_ITS ---
Patient Info Name: Kym Zapata Age: 49 years : 1975 Gender: Female Ht: 157 cm Wt: 77 kg BSA: 1.87 m2 BP: 100 / 59 mmHg Heart Rhythm: Tachycardia Exam Date: 01/24/2025 9:18 AM Admit Date: 01/22/2025 Site: [facility] Patient Status: I Technical Quality: Fair Exam Type: CA echo doppler complete Project Lead: Koki Barrios Ordering Physician: Pawan Patel Study Info Indications Orthopnea, SOB, edema - Primary Location: [id number] Left Ventricular Outflow Tract Name Value Normal LVOT 2D LVOT Diameter 1.6 cm LVOT Doppler LVOT Peak Velocity 153 cm/s LVOT Mean Gradient 4 mmHg LVOT VTI 30 cm LVOT VTI/AV VTI Ratio 0.7 LVOT Stroke Volume 61 ml Pulmonic Valve Name Value Normal PV Doppler PV Peak Velocity 145 cm/s Mitral Valve Name Value Normal MV Annular TDI MV Septal e' Velocity 11.7 cm/s MV Lateral e' Velocity 16.8 cm/s MV e' Average 14.25 cm/s Tricuspid Valve Name Value Normal TV Regurgitation Doppler TR Peak Velocity 356 cm/s Estimated PAP/RSVP RA Pressure 5 mmHg <=5 PA Systolic Pressure 56 mmHg <36 RV Systolic Pressure 56 mmHg <36 TV Annular TDI TV Lateral Dotty s' Velocity 23.1 cm/s >=9.5 Aorta Name Value Normal Ascending Aorta Ao Root Diameter (MM) 2.1 cm Ao Root Diam Index (MM) 1.1 cm/m2 Ao Root Diameter (2D) 2.3 cm Ao Root Diam Index (2D) 1.2 cm/m2 Aortic Valve Name Value Normal AV 2D/MM AV Cusp Sep (MM) 1.9 cm AV Doppler AV Peak Velocity 215 cm/s AV Mean Gradient 10 mmHg AV VTI 43 cm AV Area (Cont Eq VTI) 1.4 cm2 >=3.0 AV Area (Cont Eq Shon) 1.4 cm2 AV DI (Shon) 0.71 AV Regurgitation 2D LVOT Area 2.0 cm2 Ventricles Name Value Normal LV Dimensions 2D/MM IVS Diastolic Thickness (2D) 0.6 cm 0.6-0.9 LVID Diastole (2D) 5.1 cm 3.8-5.2 LVIW Diastolic Thickness (2D) 0.7 cm 0.6-0.9 LVID Systole (2D) 2.5 cm 2.2-3.5 LVOT Diameter 1.6 cm LV Mass (2D Cubed) 108.34 g 67.00-162.00 LV Mass Index (2D Cubed) 58 g/m2 43-95 Relative Wall Thickness (2D) 0.27 <=0.42 IVS/LVIW Diastolic Thickness (2D) 0.86 0.00-1.50 LV Fractional Shortening/Ejection Fraction 2D/MM LV Fractional Shortening (2D) 51 % 27-45 LV EF (2D Flaquitoichraysaz) 82 % RV Dimensions 2D/MM TV Lateral Dotty s' Velocity 23.1 cm/s >=9.5 Atria Name Value Normal LA Dimensions LA Dimension (2D) 3.5 cm 2.7-3.8 LA Dimen Index (2D) 1.9 cm/m2 LA Dimension (MM) 4.0 cm 2.7-3.8 Left Ventricle Left ventricular chamber dimension is normal. Unable to accurately determine LVEF. There is normal geometry noted in the left ventricle. Left ventricular segmental wall motion is normal. There is indeterminate diastolic function in the left ventricle. Right Ventricle Right ventricular chamber dimension is normal. Right ventricular systolic function is normal. Left Atrium Left atrial chamber dimension is mildly enlarged. Right Atrium Right atrial chamber dimension is normal. Aortic Valve The aortic valve is trileaflet. There is no aortic valve sclerosis. There is no aortic valve stenosis with a peak velocity of 215 cm/s, mean gradient of 10 mmHg, and aortic valve area of 1.4 cm2. There is no aortic valve regurgitation. Pulmonic Valve The pulmonic valve is normal. There is no pulmonic valve stenosis. There is no pulmonic regurgitation. Mitral Valve The mitral valve has normal leaflets. There is no mitral valve stenosis. There is no mitral valve regurgitation. Tricuspid Valve The tricuspid valve leaflets are normal. There is no tricuspid valve stenosis. There is mild to moderate tricuspid valve regurgitation. Moderate pulmonary hypertension, estimated pulmonary arterial systolic pressure is 56 mmHg and systemic blood pressure of 100 mmHg in systole. Pericardium/Pleural The pericardium appears normal. There is no pericardial effusion. No pleural effusion visualized. Inferior Vena Cava Normal inferior vena cava with >50% collapse upon inspiration consistent with normal right atrial pressure, 5 mmHg. Aorta The aortic measurements are indexed to age and body surface area. Summary 1. The echocardiogram is normal by two-dimensional, color flow imaging, and Doppler interrogation. 2. Left ventricle size is normal and systolic function is normal. Estimated ejection fraction is 60-65%. There is indeterminate diastolic function. There is normal geometry noted. 3. Right ventricle chamber size is normal and systolic function is normal. Estimated RVSP is 56 mmHg. 4. There is mild to moderate tricuspid valve regurgitation. 5. The left atrium is mildly enlarged. Report Signatures Finalized by Jay Jones on 01/24/2025 10:54 AM
--- NOTE | 2025-01-22 17:46 | ESCONSULT_ITS ---
RE: MARCIN DAWSON : 1975 DATE OF CONSULTATION: 01/22/2025 REFERRING PHYSICIAN: Dr. Soriano. REASON FOR CONSULTATION: Relapse of the left breast cancer. HISTORY OF PRESENT ILLNESS: Ms. Dawson is a 49-year-old female with past medical history of diabetes mellitus and invasive ductal carcinoma of the left breast T2 lesion N0 MX. She refused chemotherapy in the beginning. She was on aromatase inhibitor. She is status post lumpectomy and radiation therapy and currently she is on oral chemotherapy. She mentioned to me today that she was having a pain in her right ankle area all the way to the hip area for the last 4-5 days. And then she started to have shortness of breath and coughing. She denies any nausea, vomiting. She denies any headache, epistaxis, cough, hemoptysis. She denies cardiac type of chest pain. But she did mention that she is short of breath on exertion and also does not get a lot of breath. She denies any other pain. PAST MEDICAL HISTORY: 1. Invasive ductal carcinoma of the left breast T2 N0 MX. 2. Diabetes mellitus. 3. Lumpectomy. Left breast lumpectomy status post radiation therapy. SOCIAL HISTORY: She is a nonsmoker, non-drinker. FAMILY HISTORY: Irrelevant. ALLERGIES: NOT KNOWN. PHYSICAL EXAMINATION: GENERAL: She is alert. VITAL SIGNS: She is afebrile. HEENT: Pupils are reactive to light and accommodation. Sclerae nonicteric. NECK: Supple. There is no JVD. LUNGS: Good air entry bilaterally. There is increased dullness to percussion on the right side. HEART: Regular. ABDOMEN: Soft. Bowel sounds are present. EXTREMITIES: There is no cyanosis or edema. CENTRAL NERVOUS SYSTEM: Patient is able to move her extremities and follow simple command. LABORATORY DATA: Per recommendation her blood work today are WBC count 16.4, hemoglobin is 8.9, hematocrit is 26.8 with normal indices, platelet count 154,000. Sodium is 129, potassium 4.4, chloride is 98, BUN is 21, creatinine 1.1. Her AST is 341, ALT is 422, alkaline phosphatase 376. LDH is 2,178. IMAGING: Her Doppler studies were negative and her CT scan of the abdomen showed diffuse invasive infiltrated ductal bilateral carcinoma on the right with multiple right breast masses, partially measured right hilar lymphadenopathy, pulmonary edema and/or lymphangitic carcinomatosis with moderate right pleural effusion. Pulmonary nodule or nodules suspicious for metastatic disease as well as diffuse hepatomegaly with numerous hypodense masses consistent with mets. Additional lymph nodes mets and bilateral adrenal mets identified in the upper abdomen. And chest x-ray showed a large right pleural effusion. ASSESSMENT AND PLAN: Patient has a recurrence of her left breast cancer, so she will be needing a thoracentesis. Also she will be needing a bone scan and CAT scan of the head with and without contrast. I will follow this patient with you and write orders regarding the clinical situation. Patient when she was diagnosed in the beginning as T2 N0 MX lesion, she refused chemotherapy at that time. She had a Port-a-Cath placed but it never had been used for a long time now. In the beginning it was flushed but then she later refused. Patient prognosis at this stage is pretty guarded. Patient asked simple questions and they were answered to her satisfaction. I will follow this patient with you and write order according to the clinical situation. I thank you Dr. Soriano for letting me participate in the care of this interesting patient. If you have any questions, please feel free to contact me. DT: 17:26:58 TT: 17:45:00 Ref: [id number] - TID: [id number]
--- NOTE | 2025-01-22 18:53 | XR_ITS ---
Examination: CT brain, without contrast. CT brain with intravenous contrast 2-D sagittal reconstructions. 2-D coronal reconstructions. 3-D reconstructions. Date and time of exam: January 22, 2025, 1938 hours INDICATIONS: Diagnosis diffuse invasive inflammatory breast cancer with multiple right breast masses right hilar lymphadenopathy pulmonary edema, lymphangitic carcinomatosis, staging CTDI: vol (mGy): 85.1 DLP: (mGycm): 1769 Technique: Multiple 1.25 mm axial sections of the brain have been obtained., Pre and post 50 cc [id number] 2-D sagittal and coronal reconstructions have been obtained. 3-D reconstructions have been obtained. Low dose protocols were performed. One or more of the following dose reduction techniques were used; automated exposure control, adjustment of the mA and/or KV according to patient size, use of iterative reconstruction technique. Findings: Ventricles are not enlarged. No mass effect upon the ventricular system No midline shift Postcontrast images demonstrate numerous cerebellar and cerebral metastatic lesions in the cerebellar regions measuring up to 14 mm, in the high parietal regions measuring up to 6 mm IMPRESSION: Numerous cerebellar and cerebral metastatic lesions without significant mass effect Brain MRI follow-up postcontrast would best assess full extent of the metastatic disease
[2025-01-22] MEDS: guaiFENesin/DM TABLET 1 EACH PO (19:19)
[2025-01-22] MEDS: AZITHROMYCIN INJ 500 MG in SODIUM CHLORIDE 0.9% 250 ML 250 ML 250 MG IV (19:52)
[2025-01-22] MEDS: cefTRIAXone/D5w 1gm IV premix 1 GM/50 ML BAG IV (19:53)
[2025-01-22] MEDS: HEPARIN SOD INJ 5000 UNIT/ML VIAL SC (20:42)
[2025-01-23] VITALS (11 sets, daily range): BP systolic 92–118; BP diastolic 56–67; PULSE 97–109; RESP 18–20; TEMP 36.2–36.8; O2SAT 94–96
[2025-01-23] MEDS: guaiFENesin/DM TABLET 1 EACH PO ×2 (04:29→21:02)
[2025-01-23 06:14] LABS: Basophils # (Auto) 0.1 Thou/mm3 (0.0-0.2); Basophils % (Auto) 0 % (0-2.5); Eosinophils # (Auto) 0.0 Thou/mm3 (0.0-0.5); Eosinophils % (Auto) 0 % (0-10); Hematocrit 23.7 % (36.0-46.0); Immature Granulocytes Auto 1.27 Thou/mm3 (0.00-0.00); Lymphocytes # (Auto) 2.1 Thou/mm3 (1.0-4.8); Lymphocytes % (Auto) 13 % (10-50); Mean Corpuscular HGB Conc 33.8 g/dl (31.0-37.0); Mean Corpuscular Hemoglobin 30.1 pg (25.0-35.0); Mean Corpuscular Volume 89 fL (80-100); Monocytes # (Auto) 1.4 Thou/mm3 (0.0-0.8); Monocytes % (Auto) 8 % (0-12); Neutrophils # (Auto) 11.8 Thou/mm3 (1.8-7.7); Neutrophils % (Auto) 71 % (37-80); Nucleated Red Blood Cell # 0.11 Thou/mm3 (0.00-0.00); Nucleated Red Blood Cell % 1 /100 WBC (0); Platelet Count 149 Thou/mm3 (140-440); RDW Standard Deviation 46.8 fL (36.4-46.3); Red Blood Count 2.66 Miln/mm3 (4.00-5.20); White Blood Count 16.6 Thou/mm3 (3.6-11.0)
[2025-01-23 06:16] LABS: Hemoglobin 8.0 g/dL (12.0-16.0)
[2025-01-23 07:17] LABS: Alanine Aminotransferase 401 U/L (10-49); Albumin, Serum 3.3 gm/dL (3.5-5.0); Albumin/Globulin Ratio 1.3 (1.2-2.2); Alkaline Phosphatase 340 U/L (46-116); Anion Gap 10 (7-16); Aspartate Amino Transferase 326 U/L (0-34); BUN/Creatinine Ratio 23 Ratio (12-20); Bilirubin,Total 0.9 mg/dL (0.3-1.2); Blood Urea Nitrogen 27 mg/dL (9-23); Calcium 9.7 mg/dL (8.3-10.6); Calcium (Corrected) 10.3 mg/dL (8.5-10.1); Carbon Dioxide 19.9 mMol/L (20.0-31.0); Chloride 98 mMol/L (98-107); Creatinine (Component) 1.2 mg/dL (0.6-1.3); Estimated Creatinine Clearance 53.5 mL/min (>60); Globulin 2.5 gm/dL (2.3-3.5); Glucose 169 mg/dL (74-106); Magnesium 2.3 mg/dL (1.6-2.6); Osmolality,Calculated 266 (275-295); Phosphorous 4.4 mg/dL (2.4-5.1); Potassium 4.9 mMol/L (3.4-5.1); Sodium 128 mMol/L (136-145); Total Protein 5.8 gm/dL (5.7-8.2); eGFR 55 See Note
[2025-01-23] MEDS: cefTRIAXone/D5w 1gm IV premix 1 GM/50 ML BAG IV (08:18)
[2025-01-23] MEDS: SIMETHICONE 80 MG CHEW PO (09:37)
[2025-01-23 11:52] LABS: Uric Acid 11.1 mg/dL (3.1-7.8)
--- NOTE | 2025-01-23 14:28 | ESPR_ITS ---
<Statement entered by Pawan Patel MD - 01/23/25 15:50> Patient seen and examined at bedside. I discussed and supervised with the internet network specialist physician who took care of this patient. I personally saw and examined the patient. I agree with most of the assessment and plan. Bedside US performed to evaluate potential thoracentesis. Right pleural effusion to small for drainage found. Noted pleural thickening, consistent with fibrosis/scarring, concerning for complex effusion. Will continue treatment with diuretics and antibiotics. Head CT showed mutliple diffuse lesions consistent with metastasis, patient informed, expressed understanding of her condition. Will discuss next steps with oncologist. Plan to continue treatment for stabilization inpatient, possible discharge in next few days. Plan of care discussed with attending Dr. Askew. Pawan Patel MD PGY-2 Documentation for date of: 01/23/25 Subjective Subjective Interval history: Patient was seen and examined at bedside. No acute events took place overnight. She denies shortness of breath on 3 L via NC. Denies chest pain, abdominal pain, constipation, dysuria, urinary urgency or frequency. 92/58 this a.m. so we held her lasix, satting 96% on 2 L via NC WBC 16.6, Hgb 8/8.9 NA 128, corrected calcium 10 point, elevated LFTs in 3 digits Exam Vital Signs Temp Pulse Resp BP Pulse Ox O2 Del Method O2 Flow Rate 98.1 F 106 H 19 106/57 L 94 L Nasal Cannula 2 01/23/25 12:00 01/23/25 12:00 01/23/25 12:00 01/23/25 12:00 01/23/25 12:00 01/23/25 12:00 01/23/25 12:00 Narrative Exam General: AOx3, Kiswahili speaking, no acute distress, able to speak full sentences HEENT: NC/AT, mucous membranes moist, bilateral sclera anicteric Cardiovascular: tachycardia, S1/S2 present, no murmurs appreciated Pulmonary: diminished breath sounds bilateral lower lobes, no rales/rhonchi/wheezes Abdominal: soft, tenderness to palpation on LUQ, distended, no rebound/guarding, normal bowel sounds present Musculoskeletal: normal ROM, present nonpitting edema of BLE. Skin: warm and dry, intact, no rashes, Neuro: CN II-XII intact, no focal deficits Objective Labs 01/23/25 05:39 01/23/25 05:39 Labs: Laboratory Results - last 24 hr 01/22/25 01/22/25 01/23/25 14:15 14:22 05:39 WBC 16.6 H RBC 2.66 L Hgb 8.0 L Hct 23.7 L MCV 89 MCH 30.1 MCHC 33.8 RDW Std Deviation 46.8 H Plt Count 149 Neut % (Auto) 71 Lymph % (Auto) 13 [place] % (Auto) 8 Eos % (Auto) 0 Baso % (Auto) 0 Neut # (Auto) 11.8 H Lymph # (Auto) 2.1 [place] # (Auto) 1.4 H Eos # (Auto) 0.0 Baso # (Auto) 0.1 Immature Gran # (Auto) 1.27 H Absolute Nucleated RBC 0.11 H Immature Gran % 8 H Nucleated RBC % 1 H Sodium 128 L Potassium 4.9 D Chloride 98 Carbon Dioxide 19.9 L Anion Gap 10 BUN 27 H Creatinine 1.2 Estim Creat Clear Calc 53.5 L eGFR 55 L BUN/Creatinine Ratio 23 H Glucose 169 H Calculated Osmolality 266 L Uric Acid 11.1 H Calcium 9.7 Corrected Calcium 10.3 H Phosphorus 4.4 Magnesium 2.3 Total Bilirubin 0.9 AST 326 H ALT 401 H Alkaline Phosphatase 340 H D Total Protein 5.8 Albumin 3.3 L Globulin 2.5 Albumin/Globulin Ratio 1.3 Ur Collection Type Clean Catch Urine Color Yellow Urine Clarity Clear Urine pH 6.0 Ur Specific [place] 1.044 H Urine Protein 1+ A Urine Glucose (UA) Negative Urine Ketones 1+ A Urine Blood Trace Urine Nitrite Positive Urine Bilirubin Negative Urine Urobilinogen (Auto) Negative Ur Leukocyte Esterase Positive Urine RBC 7 H Urine WBC 8 H Ur Squamous Epith Cells 1 Urine Bacteria Rare Ur Culture Indicated? Yes Urine Opiates Screen Negative Urine Fentanyl Screen Negative Ur Barbiturates Screen Negative U Amphetamin/Meth Scrn Negative U Benzodiazepines Scrn Negative U Cocaine Metab Screen Negative U Marijuana (THC) Screen Negative Quality Measures Quality Measures none Assessment & Plan Assessment Current Active Medications: Generic Name Dose Route Start Last Admin Trade Name Freq PRN Reason Stop Dose Admin Hydrocodone Bitart/Acetaminophen 1 tab 01/22/25 15:46 Hydrocodone/Apap 5/325 Tablet PO 01/27/25 15:45 Q4HR PRN PAIN SCALE 4-10(Mod-Sev Furosemide 40 mg 01/23/25 09:00 01/23/25 08:19 Furosemide Inj 10 Mg/Ml 4ml Vial IVP 02/22/25 08:59 Not Given QDAY [place] Guaifenesin/Dextromethorphan 1 each 01/22/25 18:41 01/22/25 19:19 Guaifenesin/Dm Tablet PO 02/21/25 18:40 1 each BID PRN Administration COUGH Heparin Sodium (Porcine) 5,000 unit 01/22/25 21:00 01/22/25 20:42 Heparin Sod Inj 5000 Unit/Ml Vial SC 02/05/25 20:59 5,000 unit On Hold: 01/23/25 07:17 Q12HR [place] Administration Ceftriaxone Sodium/Dextrose 1 gm in 50 mls @ 100 mls/hr 01/22/25 19:00 01/23/25 08:18 Rocephin/D5w 1gm Iv Premix IV 01/29/25 18:59 100 mls/hr QDAY [place] Administration Azithromycin 500 mg/ Sodium 250 mls @ 250 mls/hr 01/22/25 18:51 01/22/25 19:52 Chloride IV 01/29/25 18:50 250 mls/hr QDAY@2100 [place] Administration Ibuprofen 600 mg 01/22/25 15:46 Ibuprofen Tab 600 Mg Tablet PO 02/21/25 15:45 Q6H PRN Pain Scale 1-3 (Mild or fever) Ondansetron HCl 4 mg 01/22/25 15:46 Ondansetron Inj 2 Mg/Ml Inj 2 Ml IVP 02/21/25 15:45 Q6H PRN NAUSEA OR VOMITING Protocol Sennosides 1 tab 01/22/25 15:46 Senna Tablet PO 02/21/25 15:45 QDAY PRN constipation Protocol Plan 49-year-old female with past medical history T2DM and left invasive ductal carcinoma (Onco Dr. Koo) status post lumpectomy 2022 and radiation 2023 presented on 01/22/2025 with bilateral lower extremity swelling shortness of breath x 3 days. 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 Oncologist, Dr. Cabello. CT showed metastasis to right breast, liver, lymph nodes, adrenal gland. Labs are largely deranged: WBC 16.4 hemoglobin 8.9 PT 13.3 sodium 129 AST 341 ALT 422 alk phos 378 lactate dehydrogenase 2178. Patient was unaware of metastasis. Reported last appointment with Dr. Cabello was late November, next appointment is in February. Patient was not aware of any metastasis previously. Reported no imaging after radiation in 2023. Patient reported significant orthopnea requiring multiple pillows. Abdominal pain and bloatedness likely due to metastasis to liver. CT brain showing numerous cerebellar and cerebral metastatic lesions without significant mass effect. Plan: - Dr. Koo was consulted in ED, recommeded seeing patient on Saturday in clinic at 1 PM - Dr. Cabello, oncologist, consulted to see patient over the weekend, appreciate recs - Pending Echo # Bilateral pitting edema # Large right pleural effusion # Congestive heart failure # ?CAP 3+ bilateral pitting edema with acute onset shortness of breath. No history of cardiac diseases. History of breast radiation. DDx: cardiac-related CHF vs. hepatocardiac syndrome vs. CHF-induced pleural effusion vs. metastasis to lungs Patient had presented with cough, possibility of CAP cannot be ruled out. - Ultrasound study of the lungs did not reveal significant effusions to warrant thoracentesis. - US of BLE negative for deep vein thrombosis in either lower extremity. Plan: ? Azithromycin IV 500 mg and ceftriaxone IV 1 g daily - Low sodium diet - Pending Echo - Diuresis Lasix - Ultrasound DVT in the setting of cancer Health Maintenance: Code status: Full DVT prophylaxis: Heparin GI prophylaxis: None Diet: Low sodium diet Melendez: No Lines: PIV Supplemental O2: None Disposition: Med Tele This case was discussed with my attending physician, Dr. Askew, and senior resident, Dr Patel. Claus Arteaga DO PGY I Attending Provider Attestation/Addendum I have discussed and was present for the essential components of the history, physical examination, diagnosis, and treatment plan with the resident. I agree with the patient's care as documented by the resident and amended herein by me. Thaddeus Askew DO. Although this document has been carefully reviewed, there may still be some phonetic and other typographical errors. These errors are purely grammatical due to imperfections in the software program and should not be construed in any way to compromise the substance of the patient's medical care during this visit. Patient seen and evaluated this AM. No acute events overnight, vital signs stable, patient afebrile, WBC remains elevated approximately 16, hemoglobin low at 8 but stable, absolute neutrophil count elevated 11.8, lymphocytes okay 2.1, immature cell lines also slightly elevated. Sodium still low at 128 relatively stable and bicarb 19.9. Kidney function unremarkable, BUN 27, creatinine 1.2, patient still demonstrating transaminitis however relatively stable. Unfortunately the patient's head CT did show metastasis to the cerebellar region without mass effect. We can obtain MRI for better characterization as per oncology recommendations. Oncology recommending bone scan which likely can be done in outpatient setting however will confer with oncology. We did confer with pulmonology today for the patient's right pleural effusion which was read to be moderate, there is not enough fluid for thoracentesis. Will reach out to oncology today for recommendations, likely DC in 1 to 2 days pending specialist recommendations.
[2025-01-23] MEDS: AZITHROMYCIN INJ 500 MG in SODIUM CHLORIDE 0.9% 250 ML 250 ML 250 MG IV (20:58)
[2025-01-24] VITALS (7 sets, daily range): BP systolic 93–107; BP diastolic 54–64; PULSE 94–110; RESP 18–26; TEMP 36.1–36.6; O2SAT 94–95
[2025-01-24] MEDS: ONDANSETRON INJ 2 MG/ML INJ 2 ML 4 MG IVP ×2 (02:07→21:04)
[2025-01-24 05:12] LABS: Basophils # (Auto) 0.1 Thou/mm3 (0.0-0.2); Basophils % (Auto) 0 % (0-2.5); Eosinophils # (Auto) 0.0 Thou/mm3 (0.0-0.5); Eosinophils % (Auto) 0 % (0-10); Hematocrit 23.6 % (36.0-46.0); Immature Granulocytes Auto 1.67 Thou/mm3 (0.00-0.00); Lymphocytes # (Auto) 2.4 Thou/mm3 (1.0-4.8); Lymphocytes % (Auto) 13 % (10-50); Mean Corpuscular HGB Conc 33.9 g/dl (31.0-37.0); Mean Corpuscular Hemoglobin 30.3 pg (25.0-35.0); Mean Corpuscular Volume 89 fL (80-100); Monocytes # (Auto) 1.5 Thou/mm3 (0.0-0.8); Monocytes % (Auto) 8 % (0-12); Neutrophils # (Auto) 12.5 Thou/mm3 (1.8-7.7); Neutrophils % (Auto) 69 % (37-80); Nucleated Red Blood Cell # 0.21 Thou/mm3 (0.00-0.00); Nucleated Red Blood Cell % 1 /100 WBC (0); Platelet Count 160 Thou/mm3 (140-440); RDW Standard Deviation 47.3 fL (36.4-46.3); Red Blood Count 2.64 Miln/mm3 (4.00-5.20); White Blood Count 18.1 Thou/mm3 (3.6-11.0)
[2025-01-24 05:21] LABS: Hemoglobin 8.0 g/dL (12.0-16.0)
[2025-01-24 05:55] LABS: Alanine Aminotransferase 423 U/L (10-49); Albumin, Serum 3.4 gm/dL (3.5-5.0); Albumin/Globulin Ratio 1.3 (1.2-2.2); Alkaline Phosphatase 356 U/L (46-116); Anion Gap 11 (7-16); Aspartate Amino Transferase 360 U/L (0-34); BUN/Creatinine Ratio 26 Ratio (12-20); Bilirubin,Total 0.8 mg/dL (0.3-1.2); Blood Urea Nitrogen 36 mg/dL (9-23); Calcium 10.0 mg/dL (8.3-10.6); Calcium (Corrected) 10.5 mg/dL (8.5-10.1); Carbon Dioxide 19.7 mMol/L (20.0-31.0); Chloride 96 mMol/L (98-107); Creatinine (Component) 1.4 mg/dL (0.6-1.3); Estimated Creatinine Clearance 45.9 mL/min (>60); Globulin 2.6 gm/dL (2.3-3.5); Glucose 172 mg/dL (74-106); Magnesium 2.4 mg/dL (1.6-2.6); Osmolality,Calculated 267 (275-295); Phosphorous 4.9 mg/dL (2.4-5.1); Potassium 5.0 mMol/L (3.4-5.1); Sodium 127 mMol/L (136-145); Total Protein 6.0 gm/dL (5.7-8.2); eGFR 46 See Note
--- NOTE | 2025-01-24 08:20 | XR_ITS ---
Examination: Bone scan whole body, radioisotope Date and time of exam: January 25, 2025, 1021 hours INDICATIONS: Breast carcinoma diagnosis mastectomy post radiation therapy 2 years ago Technique: Study has been performed with intravenous administration of 22.9 mci 99M technetium MDP. Anterior, posterior whole body images are obtained. Images have been obtained including the lower extremities. Findings: Mild increased uptake over the manubrium and the anterior central neck Mildly increased uptake left anterior ribs multiple sites and posterior right ribs Increased uptake about both shoulders IMPRESSION: Positive bone scan, recommend bilateral rib series, bilateral shoulder films, cervical spine films follow-up
--- NOTE | 2025-01-24 08:24 | ESPR_ITS ---
<Statement entered by Kelly Kumar MD - 01/24/25 17:57> Patient was seen and examined at bedside. I agree on the assessment and plan on this note as documented by resident Elle Saucedo DO PGY1. 49-year-old female with past medical history as below, admitted for pleural effusion, invasive ductal carcinoma with metastasis to right breast, adrenal glands, liver, lungs and brain. Bedside ultrasound showed not enough fluid to perform thoracentesis, CT head performed and patient did confirmed the brain metastasis. Patient's family concerned and wanted to discuss findings today, informed them and updated them regarding all findings. Patient's Lasix was held today, worsening of renal function was noted, right breast lesion noted to have more drainage, will obtain ultrasound. Patient's family does not intend to follow-up with Dr. Christine, requesting consult with Dr. Koo, will call Dr. Koo in AM. Otherwise patient is scheduled for a bone scan tomorrow, elevated RVSP was noted, will follow renal function in a.m. and will consider VQ scan versus CTA to rule out PE to make sure no component of CTEPH considering patient does have underlying malignancy. Case discussed with attending Dr. Pablo Craig MD PGY-2 Documentation for date of: 01/24/25 Subjective Subjective Interval history: No acute event overnight. Patient is seen and examined by bedside. Patient reported feeling the same. SOB improved on 1L NC. Denied abdominal discomfort today. Oncologist, Dr. Cabello, following, appreciated recs: thoracentesis, CT head, bone scan. WBC continues to uptrend, 18.1 today. Renal function decreased today, will hold lasix. Bedside Ultrasound of pleural effusion was not big enough for a safe thoracentesis. Updated patient with CT head result showed numerous cerebellar and cerebral metastatic lesions. Echo 01/22 showed RVSP 56mmHg LVEF 60-65% with mild to moderate tricuspid valve regurgitation, mildly enlarged left atrium. Plan to proceed with nuclear full-body bone scan tomorrow and discharge to follow up outpatient with Dr. Cabello. Exam Vital Signs Temp Pulse Resp BP Pulse Ox O2 Del Method O2 Flow Rate 97.7 F 104 H 19 100/59 L 95 Nasal Cannula 2 01/24/25 04:00 01/24/25 04:00 01/24/25 04:00 01/24/25 04:00 01/24/25 04:00 01/24/25 04:00 01/24/25 04:00 Narrative Exam General: AOx3, Sudanese speaking, no acute distress, able to speak full sentences, on 1L NC HEENT: NC/AT, mucous membranes moist, bilateral sclera anicteric Cardiovascular: tachycardia, S1/S2 present, no murmurs appreciated Pulmonary: diminished breath sounds bilateral lower lobes, no rales/rhonchi/wheezes Abdominal: soft, no tenderness to palpation, distended, no rebound/guarding, normal bowel sounds present Musculoskeletal: normal ROM, present nonpitting edema of BLE. Skin: warm and dry, intact, no rashes, Neuro: CN II-XII intact, no focal deficits Objective Labs 01/24/25 04:34 01/24/25 04:34 Labs: Laboratory Results - last 24 hr 01/23/25 01/24/25 05:39 04:34 WBC 18.1 H RBC 2.64 L Hgb 8.0 L Hct 23.6 L MCV 89 MCH 30.3 MCHC 33.9 RDW Std Deviation 47.3 H Plt Count 160 Neut % (Auto) 69 Lymph % (Auto) 13 [place] % (Auto) 8 Eos % (Auto) 0 Baso % (Auto) 0 Neut # (Auto) 12.5 H Lymph # (Auto) 2.4 [place] # (Auto) 1.5 H Eos # (Auto) 0.0 Baso # (Auto) 0.1 Immature Gran # (Auto) 1.67 H Absolute Nucleated RBC 0.21 H Immature Gran % 9 H Nucleated RBC % 1 H Sodium 127 L Potassium 5.0 Chloride 96 L Carbon Dioxide 19.7 L Anion Gap 11 BUN 36 H Creatinine 1.4 H Estim Creat Clear Calc 45.9 L eGFR 46 L BUN/Creatinine Ratio 26 H Glucose 172 H Calculated Osmolality 267 L Uric Acid 11.1 H Calcium 10.0 Corrected Calcium 10.5 H Phosphorus 4.9 Magnesium 2.4 Total Bilirubin 0.8 AST 360 H ALT 423 H Alkaline Phosphatase 356 H Total Protein 6.0 Albumin 3.4 L Globulin 2.6 Albumin/Globulin Ratio 1.3 Quality Measures Quality Measures VTE prophylaxis Assessment & Plan Assessment Current Active Medications: Generic Name Dose Route Start Last Admin Trade Name Freq PRN Reason Stop Dose Admin Hydrocodone Bitart/Acetaminophen 1 tab 01/22/25 15:46 Hydrocodone/Apap 5/325 Tablet PO 01/27/25 15:45 Q4HR PRN PAIN SCALE 4-10(Mod-Sev Furosemide 40 mg 01/23/25 09:00 01/23/25 08:19 Furosemide Inj 10 Mg/Ml 4ml Vial IVP 02/22/25 08:59 Not Given On Hold: 01/24/25 08:13 QDAY [place] Guaifenesin/Dextromethorphan 1 each 01/22/25 18:41 01/23/25 21:02 Guaifenesin/Dm Tablet PO 02/21/25 18:40 1 each BID PRN Administration COUGH Heparin Sodium (Porcine) 5,000 unit 01/22/25 21:00 01/22/25 20:42 Heparin Sod Inj 5000 Unit/Ml Vial SC 02/05/25 20:59 5,000 unit Q12HR [place] Administration Ceftriaxone Sodium/Dextrose 1 gm in 50 mls @ 100 mls/hr 01/22/25 19:00 01/23/25 08:18 Rocephin/D5w 1gm Iv Premix IV 01/29/25 18:59 100 mls/hr QDAY [place] Administration Azithromycin 500 mg/ Sodium 250 mls @ 250 mls/hr 01/22/25 18:51 01/23/25 20:58 Chloride IV 01/29/25 18:50 250 mls/hr QDAY@2100 [place] Administration Ibuprofen 600 mg 01/22/25 15:46 Ibuprofen Tab 600 Mg Tablet PO 02/21/25 15:45 Q6H PRN Pain Scale 1-3 (Mild or fever) Ondansetron HCl 4 mg 01/22/25 15:46 01/24/25 02:07 Ondansetron Inj 2 Mg/Ml Inj 2 Ml IVP 02/21/25 15:45 4 mg Q6H PRN Administration NAUSEA OR VOMITING Protocol Sennosides 1 tab 01/22/25 15:46 Senna Tablet PO 02/21/25 15:45 QDAY PRN constipation Protocol Plan 49-year-old female with past medical history T2DM and left invasive ductal carcinoma (Onco Dr. Koo) status post lumpectomy 2022 and radiation 2023 presented on 01/22/2025 with bilateral lower extremity swelling shortness of breath x 3 days. 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 Oncologist, Dr. Cabello. CT showed metastasis to right breast, liver, lymph nodes, adrenal gland, brain. Initial labs are largely deranged: WBC 16.4 hemoglobin 8.9 PT 13.3 sodium 129 AST 341 ALT 422 alk phos 378 lactate dehydrogenase 2178. Patient was unaware of metastasis. Reported last appointment with Dr. Cabello was late November, next appointment is in February. Patient was not aware of any metastasis previously. Reported no imaging after radiation in 2023. Patient reported significant orthopnea requiring multiple pillows. Abdominal pain and bloatedness likely due to metastasis to liver. Dr. Cabello saw patient, appreciated recs: thoracentesis, CT head, nuclear bone scan. Echo 01/22 showed RVSP 56mmHg LVEF 60-65% with mild to moderate tricuspid valve regurgitation, mildly enlarged left atrium. Plan: - Dr. Koo was consulted in ED, recommended seeing patient on Saturday in clinic at 1 PM - Dr. Cabello, oncologist, consulted to see patient over the weekend, appreciate recs - Proceed with nuclear full-body bone scan tomorrow - Follow up outpatient with Dr. Cabello. # Bilateral pitting edema # Large right pleural effusion # Congestive heart failure # ?CAP 3+ bilateral pitting edema with acute onset shortness of breath. No history of cardiac diseases. History of breast radiation. DDx: cardiac-related CHF vs. hepatocardiac syndrome vs. CHF-induced pleural effusion vs. metastasis to lungs Patient had presented with cough, possibility of CAP cannot be ruled out. - Ultrasound study of the lungs did not reveal significant effusions to warrant thoracentesis. - US of BLE negative for deep vein thrombosis in either lower extremity. - Echo 01/22 showed RVSP 56mmHg LVEF 60-65% with mild to moderate tricuspid valve regurgitation, mildly enlarged left atrium. Plan: ? Azithromycin IV 500 mg and ceftriaxone IV 1 g daily - Low sodium diet - Renal panel worsen today, hold diuresis Lasix - Continue NC for patient comfort Health Maintenance: Code status: Full DVT prophylaxis: Heparin GI prophylaxis: None Diet: Low sodium diet Melendez: No Lines: PIV Supplemental O2: None Disposition: Med Tele Assessment and plan discussed with my attending physician Dr. Aksew and Dr. Kumar (PGY-2). Dr. Saucedo (PGY-1) ? vice president lending Attending Provider Attestation/Addendum I have discussed and was present for the essential components of the history, physical examination, diagnosis, and treatment plan with the resident. I agree with the patient's care as documented by the resident and amended herein by me. Thaddeus Askew, DO. Although this document has been carefully reviewed, there may still be some phonetic and other typographical errors. These errors are purely grammatical due to imperfections in the software program and should not be construed in any way to compromise the substance of the patient's medical care during this visit.
[2025-01-24] MEDS: HEPARIN SOD INJ 5000 UNIT/ML VIAL SC ×2 (08:43→21:18)
[2025-01-24] MEDS: cefTRIAXone/D5w 1gm IV premix 1 GM/50 ML BAG IV (08:43)
--- NOTE | 2025-01-24 14:41 | PC.SS ---
49YO , Latvian speaking female; reason for visit: SOB, ABDOMINAL PAIN, METASTASIS. Woodworking Machine Offbearer met with patient at bedside to complete initial assessment. Patient?s daughters Miesha and Nina Pang at bedside. Role and purpose of today?s contact explained. Patient stated she lives alone. However, she will discharge home to her daughter Miesha?s home. Patient?s primary medical surrogate decisionmaker is her daughter, Miesha Pang [phone]. Patient reports she ambulates independently and requires moderate to maximum assistance with ADLs. [facility]: [facility] PCP: Brian Castano, last appt. was week of 01/11/25. ONCOLOGIST: Dr. Cabello. Patient requested to discharge home when medically clear. NEXT OF KIN: Daughter Miesha [phone] DISCHARGE PLAN: Home, family to transport
--- NOTE | 2025-01-24 14:42 | XR_ITS ---
Examination: Breast ultrasound, unilateral, right complete Date and time of exam: January 24, 2025, 1616 hours INDICATIONS: Open nonhealing right breast wound with pain 2 weeks, breast carcinoma diagnosis with a lumpectomy 2022 Technique: Real-time romeo scale ultrasonographic imaging performed left breast including all 4 quadrants as well as nipple retroareolar and axillary region. Findings: Retroareolar irregular solid mass indistinct margins 5 to 6 o'clock position 4.9 x 4.0 x 4.0 cm Multiple abnormal axillary lymph nodes IMPRESSION: Large irregular mass with indistinct margins 5 to 6 o'clock position left breast, BI-RADS 4: Suspicious for malignancy Multiple abnormal enlarged lymph nodes with distortion of internal architecture, BI-RADS 4 consistent with metastatic lymphadenopathy
--- NOTE | 2025-01-24 15:12 | PD.ONCCONS ---
HPI Data of Consult Requesting Physician: Pablo Askew DO Primary Care Provider: Brian Castano Consult Narrative Reason for consult: Brain mets from breast primary History of present illness: 49-year-old lady initially presented with stage IIa left breast CA status post partial mastectomy and postop radiation therapy completed nearly 2 years ago in April 2023. Cancer receptor positive HER2 negative and was placed on estrogen modulator. Oncotype DX reportedly was favorable. Patient was noted to have a growing mass in the opposite right breast along with pain in the abdomen and CT 01/22/2025 of abdomen pelvis showed inflammatory process in the right with multiple right breast masses along with pulmonary nodule suggestive of mets disease and diffuse hepatomegaly with numerous masses consistent mets. Bilateral adrenal mets noted as well. On admission CT of the brain showed numerous cerebellar and cerebral mets disease without significant mass effect. Patient now referred for radiation oncology consultation. cc:: cc: Pablo Askew DO Past Medical History Past Medical History Comments PMH COMMENT: 1. History of left breast CA T2 N0 treated with partial mastectomy and postop radiation Meds Home Medications and Allergies Home Medications ?Medication ?Instructions ?Recorded ?Confirmed ?Type semaglutide 14 mg tablet (Rybelsus) 14 mg PO QDAY 07/17/22 01/22/25 History anastrozole 1 mg tablet 1 mg PO .q day 01/22/25 01/22/25 History Allergies Allergy/AdvReac Type Severity Reaction Status Date / Time No Known Allergies Allergy Verified 01/22/25 09:17 Exam Vital Signs Temp Pulse Resp BP Pulse Ox O2 Del Method O2 Flow Rate 97.1 F 105 H 23 H 107/64 95 Nasal Cannula 2 01/24/25 12:00 01/24/25 12:00 01/24/25 12:00 01/24/25 12:00 01/24/25 12:00 01/24/25 12:00 01/24/25 12:00 Narrative Exam Gross recurrence in the right breast noted no sign of recurrence in the treated left breast exam. Patient appears comfortable Results Labs 01/24/25 04:34 01/24/25 04:34 Labs: Short CBC 01/24/25 Range/Units 04:34 WBC 18.1 H (3.6-11.0) Thou/mm3 Hgb 8.0 L (12.0-16.0) g/dL Hct 23.6 L (36.0-46.0) % Plt Count 160 (140-440) Thou/mm3 BMP 01/24/25 04:34 Sodium 127 L Potassium 5.0 Chloride 96 L Carbon Dioxide 19.7 L BUN 36 H Creatinine 1.4 H Glucose 172 H Calcium 10.0 Liver Function 01/24/25 Range/Units 04:34 Total Bilirubin 0.8 (0.3-1.2) mg/dL AST 360 H (0-34) U/L ALT 423 H (10-49) U/L Alkaline Phosphatase 356 H (46-116) U/L Albumin 3.4 L (3.5-5.0) gm/dL Assessment and Plan Additional Assessment & Plan Additional Plan: 1. History of stage IIAT2 N0 receptor positive HER2 negative left breast CA status post partial mastectomy postop radiation completed nearly 2 years ago. Had been on anastrozole since. 2. Recurrent metastatic breast CA involving right chest, with pleural effusion, right breast abdomen, and brain. 3. Most urgent in terms of patient's morbidity and mortality are the mets in the brain even though she is minimally symptomatic at this time. 4. Shall schedule patient for urgent brain radiation, even as further workup is in progress. 5. Thank you very much for allowing me to evaluate and manage this patient.
[2025-01-24 16:21] LABS: Path Review Blood Smear Sent to Pathologist
[2025-01-24] MEDS: guaiFENesin/DM TABLET 1 EACH PO (20:59)
[2025-01-24] MEDS: AZITHROMYCIN INJ 500 MG in SODIUM CHLORIDE 0.9% 250 ML 250 ML 250 MG IV (21:00)
[2025-01-25] VITALS: BP 106/63; PULSE 108; PULSE 110; RESP 22; TEMP 36; O2SAT 93
[2025-01-25 04:00] VITALS: BP 102/63; PULSE 110; RESP 16; TEMP 36; O2SAT 93
[2025-01-25] MEDS: ONDANSETRON INJ 2 MG/ML INJ 2 ML 4 MG IVP ×2 (04:08→18:49)
[2025-01-25 05:05] LABS: Basophils # (Auto) 0.1 Thou/mm3 (0.0-0.2); Basophils % (Auto) 0 % (0-2.5); Eosinophils # (Auto) 0.0 Thou/mm3 (0.0-0.5); Eosinophils % (Auto) 0 % (0-10); Hematocrit 23.3 % (36.0-46.0); Immature Granulocytes Auto 1.80 Thou/mm3 (0.00-0.00); Lymphocytes # (Auto) 2.3 Thou/mm3 (1.0-4.8); Lymphocytes % (Auto) 13 % (10-50); Mean Corpuscular HGB Conc 33.9 g/dl (31.0-37.0); Mean Corpuscular Hemoglobin 30.2 pg (25.0-35.0); Mean Corpuscular Volume 89 fL (80-100); Monocytes # (Auto) 1.3 Thou/mm3 (0.0-0.8); Monocytes % (Auto) 7 % (0-12); Neutrophils # (Auto) 12.5 Thou/mm3 (1.8-7.7); Neutrophils % (Auto) 70 % (37-80); Nucleated Red Blood Cell # 0.38 Thou/mm3 (0.00-0.00); Nucleated Red Blood Cell % 2 /100 WBC (0); Platelet Count 124 Thou/mm3 (140-440); RDW Standard Deviation 46.5 fL (36.4-46.3); Red Blood Count 2.62 Miln/mm3 (4.00-5.20); White Blood Count 17.9 Thou/mm3 (3.6-11.0)
[2025-01-25 05:17] LABS: Hemoglobin 7.9 g/dL (12.0-16.0)
[2025-01-25 05:26] LABS: Alanine Aminotransferase 428 U/L (10-49); Albumin, Serum 3.4 gm/dL (3.5-5.0); Albumin/Globulin Ratio 1.4 (1.2-2.2); Alkaline Phosphatase 382 U/L (46-116); Anion Gap 12 (7-16); Aspartate Amino Transferase 372 U/L (0-34); BUN/Creatinine Ratio 28 Ratio (12-20); Bilirubin,Total 0.8 mg/dL (0.3-1.2); Blood Urea Nitrogen 42 mg/dL (9-23); Calcium 10.1 mg/dL (8.3-10.6); Calcium (Corrected) 10.6 mg/dL (8.5-10.1); Carbon Dioxide 18.8 mMol/L (20.0-31.0); Chloride 96 mMol/L (98-107); Creatinine (Component) 1.5 mg/dL (0.6-1.3); Estimated Creatinine Clearance 42.9 mL/min (>60); Globulin 2.5 gm/dL (2.3-3.5); Glucose 182 mg/dL (74-106); Magnesium 2.5 mg/dL (1.6-2.6); Osmolality,Calculated 270 (275-295); Phosphorous 4.4 mg/dL (2.4-5.1); Potassium 5.2 mMol/L (3.4-5.1); Sodium 127 mMol/L (136-145); Total Protein 5.9 gm/dL (5.7-8.2); eGFR 42 See Note
[2025-01-25 08:00] VITALS: BP 104/56; PULSE 105; PULSE 106; RESP 17; TEMP 36.5; O2SAT 95
[2025-01-25] MEDS: HEPARIN SOD INJ 5000 UNIT/ML VIAL SC (09:46)
[2025-01-25] MEDS: cefTRIAXone/D5w 1gm IV premix 1 GM/50 ML BAG IV (09:47)
--- NOTE | 2025-01-25 10:02 | PC.SS ---
Rounding: Kidney function decline, on IV fluids, pending nuc med scan
[2025-01-25 12:00] VITALS: BP 112/61; PULSE 105; PULSE 112; RESP 18; TEMP 36.7; O2SAT 94
--- NOTE | 2025-01-25 13:11 | XR_ITS ---
Examination: Retroperitoneal ultrasound, complete Technique: Multiple high resolution grayscale images of the retroperitoneum obtained, including kidneys and bladder. Exam date and time: January 25, 2025, 2011 hours INDICATIONS: Acute renal insufficiency today. FINDINGS: Right kidney 11.1 cm renal cortex 1.6 cm Left kidney 10.6 cm renal cortex 2.1 cm Mild renal scarring, no hydronephrosis Contracted urinary bladder IMPRESSION: Bilateral renal cortical thinning Mild renal scarring No hydronephrosis
--- NOTE | 2025-01-25 13:14 | PD.RESCONSUL ---
HPI Data of Consult Consult date: 01/25/25 Requesting Physician: Pablo Askew DO Admitting Provider: Pablo Askew DO Attending Provider: Pablo Askew DO Primary Care Provider: Brian Castano Consult Narrative Reason for consult: DARA History of present illness: 49-year-old female with past medical history T2DM and left invasive ductal carcinoma (Onco Dr. Koo) status post lumpectomy 2022 and radiation 2023 presents with bilateral lower extremity swelling shortness of breath x 3 days. Patient reported bilateral leg pain x 6 days, ibuprofen did not help. Reported abdominal pain in mid epigastric x 2 days, bloated in nature. Reported shortness of breath x 3 days. Reported all symptoms are new to her. Last time visited oncologist was late November with Dr. Cabello. Next appointment in February. Since last radiation that was 2023, no scan after. Denied history of smoking, alcohol, drug use. Nephrology consulted for DARA. 01/25/25: Patient seen and examined at bedside. Patient denies any bodily pain. Reports shortness of breath and lower extremity swelling started 3 days prior and very suddenly. In November, external breast lesions initially started as a small scab and went to PCP and was prescribed fluconazole and levofloxacin, completed course. Son at bedside reports very poor p.o. intake for the past month. Denies fever/chills, urinary symptoms or recent illness. Nephrology consulted for DARA, leading differential diagnosis includes progression of cancer, prerenal iso poor intake vs RTA. cc:: cc: Pablo Askew DO Review of Systems Review of Systems Systems Reviewed: All systems reviewed, normal except as documented Exam Vital Signs Temp Pulse Resp BP Pulse Ox O2 Del Method O2 Flow Rate 97.7 F 112 H 17 104/56 L 95 Nasal Cannula 1 01/25/25 08:00 01/25/25 12:00 01/25/25 08:00 01/25/25 08:00 01/25/25 08:00 01/25/25 08:00 01/25/25 08:00 Narrative Exam GENERAL: AOx3, no acute distress, tachypneic, slightly anxious HEENT: mucous membranes moist, bilateral sclera anicteric CARDIOVASCULAR: regular rhythm, tachycardic, S1/S2 present, no murmurs appreciated PULMONARY: clear to auscultation bilaterally, no rales/rhonchi/wheezes ABDOMINAL: soft, non-tender, non-distended, no rebound/guarding, bowel sounds present EXTREMITIES: trace non pitting edema bilaterally SKIN: warm and dry, R breast abrasions, minor bleeding, covered with allevyn dressings NEURO: CN II-XII grossly intact, no focal deficits, alert, following commands Results Labs 01/26/25 05:06 01/26/25 14:45 Labs: Short CBC 01/25/25 Range/Units 04:16 WBC 17.9 H (3.6-11.0) Thou/mm3 Hgb 7.9 L (12.0-16.0) g/dL Hct 23.3 L (36.0-46.0) % Plt Count 124 L D (140-440) Thou/mm3 BMP 01/25/25 04:16 Sodium 127 L Potassium 5.2 H Chloride 96 L Carbon Dioxide 18.8 L BUN 42 H Creatinine 1.5 H Glucose 182 H Calcium 10.1 Liver Function 01/25/25 Range/Units 04:16 Total Bilirubin 0.8 (0.3-1.2) mg/dL AST 372 H (0-34) U/L ALT 428 H (10-49) U/L Alkaline Phosphatase 382 H D (46-116) U/L Albumin 3.4 L (3.5-5.0) gm/dL Quality Measures Quality Measures VTE prophylaxis Medications Home Medications and Allergies Home Medications ?Medication ?Instructions ?Recorded ?Confirmed ?Type semaglutide 14 mg tablet (Rybelsus) 14 mg PO QDAY 07/17/22 01/22/25 History anastrozole 1 mg tablet 1 mg PO .q day 01/22/25 01/22/25 History Allergies Allergy/AdvReac Type Severity Reaction Status Date / Time No Known Allergies Allergy Verified 01/22/25 09:17 Visit Medications Hydrocodone Bitart/Acetaminophen (Hydrocodone/Apap 5/325 Tablet) 1 tab PO Q4HR PRN PRN Reason: PAIN SCALE 4-10(Mod-Sev Stop: 01/27/25 15:45 Citric Acid/Sodium Citrate (Citric Acid/Sodium Citr 15 Ml Udc (Bicitra)) 30 ml PO BID [place] Stop: 02/24/25 12:29 Furosemide (Furosemide Inj 10 Mg/Ml 4ml Vial) 40 mg IVP QDAY [place] On Hold: 01/24/25 08:13 Stop: 02/22/25 08:59 Last Admin: 01/23/25 08:19 Dose: Not Given Guaifenesin/Dextromethorphan (Guaifenesin/Dm Tablet) 1 each PO BID PRN PRN Reason: COUGH Stop: 02/21/25 18:40 Last Admin: 01/24/25 20:59 Dose: 1 each Heparin Sodium (Porcine) (Heparin Sod Inj 5000 Unit/Ml Vial) 5,000 unit SC Q12HR [place] Stop: 02/05/25 20:59 Last Admin: 01/25/25 09:46 Dose: 5,000 unit Ceftriaxone Sodium/Dextrose (Rocephin/D5w 1gm Iv Premix) 1 gm in 50 mls @ 100 mls/hr IV QDAY [place] Stop: 01/29/25 18:59 Last Admin: 01/25/25 09:47 Dose: 100 mls/hr Azithromycin 500 mg/ Sodium (Chloride) 250 mls @ 250 mls/hr IV QDAY@2100 [place] Stop: 01/29/25 18:50 Last Infusion: 01/24/25 22:00 Dose: Infused Ibuprofen (Ibuprofen Tab 600 Mg Tablet) 600 mg PO Q6H PRN PRN Reason: Pain Scale 1-3 (Mild or fever) Stop: 02/21/25 15:45 Lorazepam (Lorazepam 2 Mg/Ml Vial) 2 mg IVP X1 PRN PRN Reason: PRIOR TO NUCLEAR MEDICINE SCAN Ondansetron HCl (Ondansetron Inj 2 Mg/Ml Inj 2 Ml) 4 mg IVP Q6H PRN; Protocol PRN Reason: NAUSEA OR VOMITING Stop: 02/21/25 15:45 Last Admin: 01/25/25 04:08 Dose: 4 mg Sennosides (Senna Tablet) 1 tab PO QDAY PRN; Protocol PRN Reason: constipation Stop: 02/21/25 15:45 Discontinued Medications Famotidine (Famotidine Inj 10 Mg/Ml Vial 2 Ml) 20 mg IVP X1 ONE Stop: 01/22/25 10:14 Last Admin: 01/22/25 10:55 Dose: 20 mg Furosemide (Furosemide Inj 10 Mg/Ml 4ml Vial) 40 mg IVP X1 ONE Stop: 01/22/25 10:05 Last Admin: 01/22/25 10:53 Dose: Not Given Furosemide (Furosemide 40 Mg Tablet) 40 mg PO X1 ONE Stop: 01/22/25 15:52 Last Admin: 01/22/25 16:01 Dose: 40 mg Guaifenesin/Dextromethorphan (Guaifenesin/Dm Tablet) 1 each PO X1 ONE Stop: 01/23/25 04:16 Last Admin: 01/23/25 04:29 Dose: 1 each Heparin Sodium (Porcine) (Heparin Sod Inj 5000 Unit/Ml Vial) 5,000 unit SC Q8HR [place] Stop: 02/05/25 21:59 Metolazone (Metolazone 2.5 Mg Tablet) 5 mg PO X1 ONE Stop: 01/22/25 10:05 Last Admin: 01/22/25 10:53 Dose: Not Given Simethicone (Simethicone 80 Mg Chew) 80 mg PO X1 ONE Stop: 01/23/25 08:53 Last Admin: 01/23/25 09:37 Dose: 80 mg Assessment & Plan Plan Kym Zapata 49F pmhx significant for NIDDM2 and left invasive ductal carcinoma (Onco Dr. Koo) s/p lumpectomy 2022 and radiation 2023 presents with bilateral lower extremity swelling shortness of breath x 3 days, found to have mets to R breast, liver, adrenal glands, and brain (cerebellar and cerebral) with R hilar and abdominal lymphadenopathy. #DARA, likely prerenal vs contrast nephropathy On admission Cr 1.1, baseline 0.9-1.1, however on 01/24, Cr 1.4 and uptrending. During this admission, mets discovered to R breast, liver, adrenal glands, and brain (cerebellar and cerebral) with R hilar and abdominal lymphadenopathy. Ddx: volume overload 2/2 HFpEF exacerbation vs decreased PO intake iso cancer with mets vs SIADH vs nephrotic syndrome vs lasix administration Plan: - F/u Ulytes and renal US - NS 1L at 80cc/hr as patient did present with BLE edema and R pleural effusion, likely exudative however and not enough volume to be tapped - CTM Cr - Avoid nephrotoxic medications and renally dose #Hyponatremia #Hyperkalemia On admission Na 129, when on 11/2024 Na 143. No hx of hyponatremia. On 11/10, K 5.2. 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 Anand. Marlena Simmons, PGY-1 Internal Medicine Attending Provider Attestation/Addendum Patient seen and examined with resident physician Dr. Simmons. Note reviewed, agree with findings and recommendations. Patient currently seen in medical floor. Daughter is the certified court/medical interpreter. Unfortunately lady with metastatic infiltrating breast cancer with mets to the brain. Patient used to follow-up with Dr. Cabello in the outpatient setting. On anastrozole. November 2024 CA 15-3 levels have started to elevate. Patient now with necrotizing cancer of the right breast and metastatic disease to the entire body. DARA-multifactorial (contrast nephropathy/decreased p.o. intake/hypoalbuminemia. Patient with a significant elevation in liver enzymes. Urinalysis, urine lites ordered. Renal ultrasound ordered. Strict I&O's ordered. Noted metabolic acidosis-Bicitra ordered. Hyponatremia secondary to hypovolemic hyponatremia versus underlying SIADH from cancer. Clinically patient looks rather hypovolemic. Agree with the normal saline with close monitoring of the renal function. Edema probably from hypoalbuminemia/third spacing. Thank you Thaddeus for allowing me to participate in the care of Ms. Zapata
[2025-01-25] MEDS: CITRIC ACID/SODIUM CITR 15 ML UDC (BICITRA) 30 ML PO ×2 (13:27→20:14)
--- NOTE | 2025-01-25 13:36 | ESPR_ITS ---
<Statement entered by Pawan Patel MD - 01/26/25 12:53> Patient seen and examined at bedside. I discussed and supervised with the planner internship physician who took care of this patient. I personally saw and examined the patient. I agree with most of the assessment and plan. Patient seen and examined at bedside. Continues to have worsening renal function, consulted nephrology. Discussed plan of care regarding patient's cancer. Patient wishes to be seen by Dr. Young, will have patient follow up with Dr. Koo once discharged for referral and additional treatment. Discussed plan with patient and family, who expressed understanding. Will continue to monitor, follow nephrology recs, plan for discharge within next few days to begin cancer treatment. Plan of care discussed with attending Dr. Askew. Pawan Patel MD PGY-2 Documentation for date of: 01/25/25 Subjective Subjective Interval history: No acute event overnight. Patient is seen and examined by bedside. Patient reported feeling the same. SOB improved on 1L NC. Denied abdominal discomfort today. Patient received Zofran x2 for nausea and Mucinex for cough. Patient has not had appetite and been eating per nurse. Patient will need to f/u with Dr Koo outpatient for radiation treatment of brain metastesis in 2-3 days. Exam Vital Signs Temp Pulse Resp BP Pulse Ox O2 Del Method O2 Flow Rate 98.0 F 105 H 18 112/61 94 L Nasal Cannula 1 01/25/25 12:00 01/25/25 12:00 01/25/25 12:00 01/25/25 12:00 01/25/25 12:00 01/25/25 12:00 01/25/25 12:00 Narrative Exam General: AOx3, Ecuadorean speaking, no acute distress, able to speak full sentences, on 1L NC HEENT: NC/AT, mucous membranes moist, bilateral sclera anicteric Cardiovascular: sinus tachycardia, S1/S2 present, no murmurs appreciated Pulmonary: Present course crackles over Rt lower lobe zone. no rales/rhonchi/wheezes. Abdominal: soft, no tenderness to palpation, distended, no rebound/guarding, normal bowel sounds present Musculoskeletal: normal ROM, present nonpitting edema of BLE. Skin: warm and dry, intact, no rashes, Neuro: CN II-XII intact, no focal deficits Objective Labs 01/25/25 04:16 01/25/25 04:16 Labs: Laboratory Results - last 24 hr 01/24/25 01/25/25 04:34 04:16 WBC 17.9 H RBC 2.62 L Hgb 7.9 L Hct 23.3 L MCV 89 MCH 30.2 MCHC 33.9 RDW Std Deviation 46.5 H Plt Count 124 L D Neut % (Auto) 70 Lymph % (Auto) 13 [place] % (Auto) 7 Eos % (Auto) 0 Baso % (Auto) 0 Neut # (Auto) 12.5 H Lymph # (Auto) 2.3 [place] # (Auto) 1.3 H Eos # (Auto) 0.0 Baso # (Auto) 0.1 Immature Gran # (Auto) 1.80 H Absolute Nucleated RBC 0.38 H Immature Gran % 10 H Nucleated RBC % 2 H Smear Path Review Sent to Pathologist Sodium 127 L Potassium 5.2 H Chloride 96 L Carbon Dioxide 18.8 L Anion Gap 12 BUN 42 H Creatinine 1.5 H Estim Creat Clear Calc 42.9 L eGFR 42 L BUN/Creatinine Ratio 28 H Glucose 182 H Calculated Osmolality 270 L Calcium 10.1 Corrected Calcium 10.6 H Phosphorus 4.4 Magnesium 2.5 Total Bilirubin 0.8 AST 372 H ALT 428 H Alkaline Phosphatase 382 H D Total Protein 5.9 Albumin 3.4 L Globulin 2.5 Albumin/Globulin Ratio 1.4 Quality Measures Quality Measures VTE prophylaxis Assessment & Plan Assessment Current Active Medications: Generic Name Dose Route Start Last Admin Trade Name Freq PRN Reason Stop Dose Admin Hydrocodone Bitart/Acetaminophen 1 tab 01/22/25 15:46 Hydrocodone/Apap 5/325 Tablet PO 01/27/25 15:45 Q4HR PRN PAIN SCALE 4-10(Mod-Sev Citric Acid/Sodium Citrate 30 ml 01/25/25 12:30 01/25/25 13:27 Citric Acid/Sodium Citr 15 Ml Udc (Bicitra) PO 02/24/25 12:29 30 ml BID [place] Administration Furosemide 40 mg 01/23/25 09:00 01/23/25 08:19 Furosemide Inj 10 Mg/Ml 4ml Vial IVP 02/22/25 08:59 Not Given On Hold: 01/24/25 08:13 QDAY [place] Guaifenesin/Dextromethorphan 1 each 01/22/25 18:41 01/24/25 20:59 Guaifenesin/Dm Tablet PO 02/21/25 18:40 1 each BID PRN Administration COUGH Heparin Sodium (Porcine) 5,000 unit 01/22/25 21:00 01/25/25 09:46 Heparin Sod Inj 5000 Unit/Ml Vial SC 02/05/25 20:59 5,000 unit Q12HR [place] Administration Ceftriaxone Sodium/Dextrose 1 gm in 50 mls @ 100 mls/hr 01/22/25 19:00 01/25/25 09:47 Rocephin/D5w 1gm Iv Premix IV 01/29/25 18:59 100 mls/hr QDAY [place] Administration Azithromycin 500 mg/ Sodium 250 mls @ 250 mls/hr 01/22/25 18:51 01/24/25 22:00 Chloride IV 01/29/25 18:50 Infused QDAY@2100 [place] Infusion Ibuprofen 600 mg 01/22/25 15:46 Ibuprofen Tab 600 Mg Tablet PO 02/21/25 15:45 Q6H PRN Pain Scale 1-3 (Mild or fever) Lorazepam 2 mg 01/25/25 11:04 Lorazepam 2 Mg/Ml Vial IVP X1 PRN PRIOR TO NUCLEAR MEDICINE SCAN Ondansetron HCl 4 mg 01/22/25 15:46 01/25/25 04:08 Ondansetron Inj 2 Mg/Ml Inj 2 Ml IVP 02/21/25 15:45 4 mg Q6H PRN Administration NAUSEA OR VOMITING Protocol Sennosides 1 tab 01/22/25 15:46 Senna Tablet PO 02/21/25 15:45 QDAY PRN constipation Protocol Plan 49-year-old female with past medical history T2DM and left invasive ductal carcinoma (Onco Dr. Koo) status post lumpectomy 2022 and radiation 2023 presented on 01/22/2025 with bilateral lower extremity swelling shortness of breath x 3 days. 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 Oncologist, Dr. Cabello. CT showed metastasis to right breast, liver, lymph nodes, adrenal gland, brain. Initial labs are largely deranged: WBC 16.4 hemoglobin 8.9 PT 13.3 sodium 129 AST 341 ALT 422 alk phos 378 lactate dehydrogenase 2178. Patient was unaware of metastasis. Reported last appointment with Dr. Cabello was late November, next appointment is in February. Patient was not aware of any metastasis previously. Reported no imaging after radiation in 2023. Patient reported significant orthopnea requiring multiple pillows. Abdominal pain and bloatedness likely due to metastasis to liver. Echo 01/22 showed RVSP 56mmHg LVEF 60-65% with mild to moderate tricuspid valve regurgitation, mildly enlarged left atrium. ? US Rt breast revealed irregular mass with indistinct margins 5 to 6 o'clock position 4.9 x4.0 x4.0cm Lt breast. ? 01/25: positive bone scan: mild increased uptake over the manibrium, anterior central neck, Lt anterior ribs, and posterior Rt ribs, as well as both shoulders. Plan: - Rad/onc, Dr Koo, consulted, appreciate recs - Patient will complete radiologic treatment outpatient after immediate f/u with Dr Koo upon hospital discharge. - Consider pulmonary perfusion scan for V/Q mismatch to rule out PE #DARA, likely prerenal #Hyponatremia #Hyperkalemia Ddx tumor lysis syndrome: rapid progression of cancer. On admission Cr 1.1, baseline 0.9-1.1, however on 01/24, Cr 1.4 and uptrending. Plan: - Nephrology, Abigail Anand and [place] consulted, appreciate recs - F/u Ulytes and renal US - NS 1L at 80cc/hr - CTM Cr, and electrolytes - Bicitra BID - Avoid nephrotoxic medications and renally dose # Bilateral pitting edema # Large right pleural effusion # Congestive heart failure # ?CAP 3+ bilateral pitting edema with acute onset shortness of breath. No history of cardiac diseases. History of breast radiation. DDx: cardiac-related CHF vs. hepatocardiac syndrome vs. CHF-induced pleural effusion vs. metastasis to lungs Patient had presented with cough, possibility of CAP cannot be ruled out. - Ultrasound study of the lungs did not reveal significant effusions to warrant thoracentesis. - US of BLE negative for deep vein thrombosis in either lower extremity. - Echo 01/22 showed RVSP 56mmHg LVEF 60-65% with mild to moderate tricuspid valve regurgitation, mildly enlarged left atrium. Plan: ? Azithromycin IV 500 mg and ceftriaxone IV 1 g daily - Low sodium diet - Renal panel worsen today, hold diuresis Lasix - Continue NC for patient comfort Health Maintenance: Code status: Full DVT prophylaxis: Heparin GI prophylaxis: None Diet: Low sodium diet Melendez: No Lines: PIV Supplemental O2: None Disposition: Med Tele This case was discussed with my attending physician, Dr. Askew, and senior resident, Dr Patel. Claus Arteaga DO PGY I Attending Provider Attestation/Addendum I have discussed and was present for the essential components of the history, physical examination, diagnosis, and treatment plan with the resident. I agree with the patient's care as documented by the resident and amended herein by me. Thaddeus Askew DO. Although this document has been carefully reviewed, there may still be some phonetic and other typographical errors. These errors are purely grammatical due to imperfections in the software program and should not be construed in any way to compromise the substance of the patient's medical care during this visit. Patient seen and evaluated this AM. No acute events overnight, vital signs stable, patient afebrile. Patient alert and in good spirits this morning considering her diagnosis of metastatic breast cancer. Significant labs today include a low but stable hemoglobin at 7.9, WBC of 17.9, sodium low at 127 but stable, potassium 5.2, bicarbonate 18, BUN 42 and a slight uptrend in creatinine at 1.5. We did perform an ultrasound of the right breast demonstrating a large irregular mass with indistinct margins, BI-RADS 4 with multiple abnormal enlarged lymph nodes with distortion consistent with metastasis. A nuclear medicine bone scan was also performed and was positive for bone metastasis. As far as the patient's renal function goes we will consult nephrology today as the patient may need outpatient follow-up hence we will establish during this admission. Dr. Koo was consulted and is obtaining insurance authorization to start brain radiation [place] considering her brain metastasis specifically to the cerebellum. Patient would also like to follow-up with Dr. Young at the cancer center and does not wish to see Dr. Cabello in the future however this will complicate things with the insurance and may take time to receive authorization for a new provider. Patient can likely be discharged tomorrow as her lab function is most likely not going to improve in setting of widespread metastasis, however will be important to make sure she has a follow-up appointment time with the cancer center before discharge if possible pending insurance authorization. Will continue to monitor closely was here, her son was also at bedside and this was all explained, the family is on board with the plan.
[2025-01-25] MEDS: LORazepam 2 MG/ML VIAL IVP (14:15)
[2025-01-25 14:40] VITALS: BMI 31.6
[2025-01-25] MEDS: SODIUM CHLORIDE 0.9% 1000 ML 1,000 ML 80 ML IV (15:00)
[2025-01-25 16:00] VITALS: BP 125/68; PULSE 104; PULSE 107; RESP 20; TEMP 36.5; O2SAT 95
[2025-01-25 20:00] VITALS: BP 124/60; PULSE 114; PULSE 115; RESP 29; TEMP 36.2; O2SAT 95
[2025-01-25] MEDS: AZITHROMYCIN INJ 500 MG in SODIUM CHLORIDE 0.9% 250 ML 250 ML 250 MG IV (20:14)
[2025-01-26] VITALS (9 sets, daily range): BP systolic 91–123; BP diastolic 52–73; PULSE 109–124; RESP 17–32; TEMP 36.3–36.6; O2SAT 91–97
[2025-01-26] MEDS: SODIUM CHLORIDE 0.9% 1000 ML 1,000 ML 80 ML IV (04:21)
[2025-01-26 05:55] LABS: Basophils # (Auto) 0.1 Thou/mm3 (0.0-0.2); Basophils % (Auto) 0 % (0-2.5); Eosinophils # (Auto) 0.0 Thou/mm3 (0.0-0.5); Eosinophils % (Auto) 0 % (0-10); Hematocrit 23.2 % (36.0-46.0); Immature Granulocytes Auto 1.46 Thou/mm3 (0.00-0.00); Lymphocytes # (Auto) 1.8 Thou/mm3 (1.0-4.8); Lymphocytes % (Auto) 12 % (10-50); Mean Corpuscular HGB Conc 33.6 g/dl (31.0-37.0); Mean Corpuscular Hemoglobin 30.4 pg (25.0-35.0); Mean Corpuscular Volume 90 fL (80-100); Monocytes # (Auto) 1.1 Thou/mm3 (0.0-0.8); Monocytes % (Auto) 8 % (0-12); Neutrophils # (Auto) 10.3 Thou/mm3 (1.8-7.7); Neutrophils % (Auto) 70 % (37-80); Nucleated Red Blood Cell # 0.55 Thou/mm3 (0.00-0.00); Nucleated Red Blood Cell % 4 /100 WBC (0); Platelet Count 116 Thou/mm3 (140-440); RDW Standard Deviation 47.7 fL (36.4-46.3); Red Blood Count 2.57 Miln/mm3 (4.00-5.20); White Blood Count 14.7 Thou/mm3 (3.6-11.0)
[2025-01-26 06:02] LABS: Hemoglobin 7.8 g/dL (12.0-16.0)
[2025-01-26 06:19] LABS: Alanine Aminotransferase 426 U/L (10-49); Albumin, Serum 3.2 gm/dL (3.5-5.0); Albumin/Globulin Ratio 1.2 (1.2-2.2); Alkaline Phosphatase 406 U/L (46-116); Anion Gap 12 (7-16); Aspartate Amino Transferase 385 U/L (0-34); BUN/Creatinine Ratio 28 Ratio (12-20); Bilirubin,Total 0.9 mg/dL (0.3-1.2); Blood Urea Nitrogen 45 mg/dL (9-23); Calcium 10.1 mg/dL (8.3-10.6); Calcium (Corrected) 10.7 mg/dL (8.5-10.1); Carbon Dioxide 20.2 mMol/L (20.0-31.0); Chloride 95 mMol/L (98-107); Creatinine (Component) 1.6 mg/dL (0.6-1.3); Estimated Creatinine Clearance 39.4 mL/min (>60); Globulin 2.6 gm/dL (2.3-3.5); Glucose 199 mg/dL (74-106); Magnesium 2.4 mg/dL (1.6-2.6); Osmolality,Calculated 272 (275-295); Phosphorous 3.5 mg/dL (2.4-5.1); Potassium 5.0 mMol/L (3.4-5.1); Sodium 127 mMol/L (136-145); Total Protein 5.8 gm/dL (5.7-8.2); eGFR 39 See Note
[2025-01-26] MEDS: guaiFENesin/DM TABLET 1 EACH PO ×2 (06:26→15:43)
--- NOTE | 2025-01-26 08:01 | PC.NURSE ---
Lab called BC gram negative rods
[2025-01-26] MEDS: HEPARIN SOD INJ 5000 UNIT/ML VIAL SC (08:42)
[2025-01-26] MEDS: CITRIC ACID/SODIUM CITR 15 ML UDC (BICITRA) 30 ML PO (08:43)
[2025-01-26] MEDS: cefTRIAXone/D5w 1gm IV premix 1 GM/50 ML BAG IV (08:47)
--- NOTE | 2025-01-26 08:57 | PD.RESPRO ---
Documentation for date of: 01/26/25 Subjective Subjective Interval history: 49-year-old female with past medical history T2DM and left invasive ductal carcinoma (Onco Dr. Koo) status post lumpectomy 2022 and radiation 2023 presents with bilateral lower extremity swelling shortness of breath x 3 days. Patient reported bilateral leg pain x 6 days, ibuprofen did not help. Reported abdominal pain in mid epigastric x 2 days, bloated in nature. Reported shortness of breath x 3 days. Reported all symptoms are new to her. Last time visited oncologist was late November with Dr. Cabello. Next appointment in February. Since last radiation that was 2023, no scan after. Denied history of smoking, alcohol, drug use. Nephrology consulted for DARA. 01/25/25: Patient seen and examined at bedside. Patient denies any bodily pain. Reports shortness of breath and lower extremity swelling started 3 days prior and very suddenly. In November, external breast lesions initially started as a small scab and went to PCP and was prescribed fluconazole and levofloxacin, completed course. Son at bedside reports very poor p.o. intake for the past month. Denies fever/chills, urinary symptoms or recent illness. Nephrology consulted for DARA, leading differential diagnosis includes progression of cancer, prerenal iso poor intake vs RTA. 01/26/25: Patient seen examined at bedside. Endorses anxiety and shortness of breath due to stomach fullness. States very poor appetite and when attempting to drink currently feels nauseous. Daughter at bedside emotional regarding current situation, also states that Zofran does not alleviate nausea. Recommend Phenergan or Reglan as well as mirtazapine as patient does endorse anxiety with low appetite. Exam Vital Signs Temp Pulse Resp BP Pulse Ox O2 Del Method O2 Flow Rate 97.4 F 116 H 18 108/57 L 97 Nasal Cannula 2 01/26/25 07:48 01/26/25 07:48 01/26/25 07:48 01/26/25 07:48 01/26/25 07:48 01/26/25 07:48 01/26/25 07:48 Narrative Exam GENERAL: AOx3, no acute distress, tachypneic, slightly anxious HEENT: mucous membranes moist, bilateral sclera anicteric CARDIOVASCULAR: regular rhythm, tachycardic, S1/S2 present, no murmurs appreciated PULMONARY: clear to auscultation bilaterally, no rales/rhonchi/wheezes ABDOMINAL: soft, non-tender, non-distended, no rebound/guarding, bowel sounds present EXTREMITIES: trace non pitting edema bilaterally SKIN: warm and dry, R breast lesion, covered with allevyn dressings NEURO: CN II-XII grossly intact, no focal deficits, alert, following commands Objective Labs 01/27/25 05:10 01/27/25 05:10 Labs: Laboratory Results - last 24 hr 01/26/25 05:06 WBC 14.7 H RBC 2.57 L Hgb 7.8 L Hct 23.2 L MCV 90 MCH 30.4 MCHC 33.6 RDW Std Deviation 47.7 H Plt Count 116 L Neut % (Auto) 70 Lymph % (Auto) 12 Rock % (Auto) 8 Eos % (Auto) 0 Baso % (Auto) 0 Neut # (Auto) 10.3 H Lymph # (Auto) 1.8 Rock # (Auto) 1.1 H Eos # (Auto) 0.0 Baso # (Auto) 0.1 Immature Gran # (Auto) 1.46 H Absolute Nucleated RBC 0.55 H Immature Gran % 10 H Nucleated RBC % 4 H Sodium 127 L Potassium 5.0 Chloride 95 L Carbon Dioxide 20.2 Anion Gap 12 BUN 45 H Creatinine 1.6 H Estim Creat Clear Calc 39.4 L eGFR 39 L BUN/Creatinine Ratio 28 H Glucose 199 H Calculated Osmolality 272 L Calcium 10.1 Corrected Calcium 10.7 H Phosphorus 3.5 Magnesium 2.4 Total Bilirubin 0.9 AST 385 H ALT 426 H Alkaline Phosphatase 406 H D Total Protein 5.8 Albumin 3.2 L Globulin 2.6 Albumin/Globulin Ratio 1.2 Quality Measures Quality Measures VTE prophylaxis Assessment & Plan Assessment Current Active Medications: Generic Name Dose Route Start Last Admin Trade Name Freq PRN Reason Stop Dose Admin Hydrocodone Bitart/Acetaminophen 1 tab 01/22/25 15:46 Hydrocodone/Apap 5/325 Tablet PO 01/27/25 15:45 Q4HR PRN PAIN SCALE 4-10(Mod-Sev Citric Acid/Sodium Citrate 30 ml 01/25/25 12:30 01/26/25 08:43 Citric Acid/Sodium Citr 15 Ml Udc (Bicitra) PO 02/24/25 12:29 30 ml BID [place] Administration Furosemide 40 mg 01/23/25 09:00 01/23/25 08:19 Furosemide Inj 10 Mg/Ml 4ml Vial IVP 02/22/25 08:59 Not Given On Hold: 01/24/25 08:13 QDAY [place] Guaifenesin/Dextromethorphan 1 each 01/22/25 18:41 01/26/25 06:26 Guaifenesin/Dm Tablet PO 02/21/25 18:40 1 each BID PRN Administration COUGH Heparin Sodium (Porcine) 5,000 unit 01/22/25 21:00 01/26/25 08:42 Heparin Sod Inj 5000 Unit/Ml Vial SC 02/05/25 20:59 5,000 unit Q12HR [place] Administration Ceftriaxone Sodium/Dextrose 1 gm in 50 mls @ 100 mls/hr 01/22/25 19:00 01/26/25 08:47 Rocephin/D5w 1gm Iv Premix IV 01/29/25 18:59 100 mls/hr QDAY [place] Administration Azithromycin 500 mg/ Sodium 250 mls @ 250 mls/hr 01/22/25 18:51 01/25/25 21:14 Chloride IV 01/29/25 18:50 Infused QDAY@2100 [place] Infusion Sodium Chloride 1,000 mls @ 80 mls/hr 01/25/25 13:45 01/26/25 04:21 Ns IV 02/24/25 13:44 80 mls/hr .[id number] [place] Administration Ondansetron HCl 4 mg 01/22/25 15:46 01/25/25 18:49 Ondansetron Inj 2 Mg/Ml Inj 2 Ml IVP 02/21/25 15:45 4 mg Q6H PRN Administration NAUSEA OR VOMITING Protocol Sennosides 1 tab 01/22/25 15:46 Senna Tablet PO 02/21/25 15:45 QDAY PRN constipation Protocol Plan Kym Zapata 49F pmhx significant for NIDDM2 and left invasive ductal carcinoma (Onco Dr. Koo) s/p lumpectomy 2022 and radiation 2023 presents with bilateral lower extremity swelling shortness of breath x 3 days, found to have mets to R breast, liver, adrenal glands, and brain (cerebellar and cerebral) with R hilar and abdominal lymphadenopathy. #DARA, likely prerenal #UTI, E.coli pansensitive On admission Cr 1.1, baseline 0.9-1.1, however on 01/24, Cr 1.4 and uptrending. During this admission, mets discovered to R breast, liver, adrenal glands, and brain (cerebellar and cerebral) with R hilar and abdominal lymphadenopathy. Renal US bilateral renal cortical thinning, mild renal scarring, no hydronephrosis Ddx: decreased PO intake iso cancer with mets with contrast nephropathy and/or administration of lasix Plan: - F/u Ulytes and repeat UA - Continue NS 1L at 80cc/hr as patient did present with BLE edema and R pleural effusion, likely exudative however and not enough volume to be tapped - CTM Cr - Avoid nephrotoxic medications and renally dose #Hyponatremia #Hyperkalemia On admission Na 129, when on 11/2024 Na 143. No hx of hyponatremia. On 01/25, K 5.2. 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 Anand. Marlena Simmons DO PGY-1 Internal Medicine Attending Provider Attestation/Addendum Patient seen and examined with resident physician Dr. Simmons. Note reviewed, agree with findings and recommendations. Patient currently seen in medical floor. Daughter is the spanish medical interpreter. Unfortunately lady with metastatic infiltrating breast cancer with mets to the brain. Patient used to follow-up with Dr. Cabello in the outpatient setting. On anastrozole. November 2024 CA 15-3 levels have started to elevate. Patient now with necrotizing cancer of the right breast and metastatic disease to the entire body. DARA-multifactorial (contrast nephropathy/decreased p.o. intake/hypoalbuminemia. Patient with a significant elevation in liver enzymes. Urinalysis, urine lites ordered. Renal ultrasound ordered. Strict I&O's ordered. Noted metabolic acidosis-Bicitra ordered. Hyponatremia secondary to hypovolemic hyponatremia versus underlying SIADH from cancer. Clinically patient looks rather hypovolemic. Agree with the normal saline with close monitoring of the renal function. Edema probably from hypoalbuminemia/third spacing. Complaining of significant nausea vomiting, decreased p.o. intake. Zofran not helping. Consider Reglan/promethazine versus mirtazapine for appetite stimulant. Time spent more than 40 minutes regarding plan of care and disease management. Spoke to daughter at length. Explained poor prognosis. Thank you Thaddeus for allowing me to participate in the care of Ms. Zapata
[2025-01-26 11:10] LABS: Collection Type, Urine Clean Catch
[2025-01-26 11:37] LABS: Chloride,Urine Random < 20.0 mMol/L (55.0-125.0); Creatinine,Random Urine 69 mg/dL (30-125); Potassium,Urine Random 31 mMol/L (12-62); Protein Total, Random Urine 42 mg/dL (1-14); Sodium,Urine Random < 10.0 mMol/L (20.0-110.0); Urea Nitrogen, Random Urine 614.0 mg/dL (350.0-1000.0)
[2025-01-26 12:43] LABS: Bilirubin,Urine Negative (Negative); Blood,Urine 2+ (Negative); Clarity,Urine Turbid (Clear/Hazy); Color,Urine Yellow (Lt Yel-Yel); Glucose, Urine Negative (Negative); Ketones,Urine Negative (Negative); Leukocyte Esterase,Urine Positive (Negative); Nitrite,Urine Negative (Negative); PH,Urine 5.0 (5.0-7.0); Protein,Urine Trace (Neg - Trace); RBC,Urine 86 /hpf (0-3); Specific Gravity,Urine 1.014 (1.001-1.035); Squamous Epithelial Cell,Urine 7 /hpf (0-5); Urobilinogen,Urine Negative mg/dL (0.0-1.0); WBC,Urine 200 /hpf (0-5)
--- NOTE | 2025-01-26 14:54 | ESPR_ITS ---
<Statement entered by Pawan Patel MD - 01/27/25 14:57> Patient seen and examined at bedside. I discussed and supervised with the graduate intern physician who took care of this patient. I personally saw and examined the patient. I agree with most of the assessment and plan. Plan of care discussed with attending Dr. Cook. Pawan Patel MD PGY-2 Documentation for date of: 01/26/25 Subjective Subjective Interval history: No acute event overnight. Patient is seen and examined by bedside. Patient reported feeling the same. SOB improved on 2L NC. Denied abdominal discomfort today. Patient remained deeply sedated on Ativan for bone scan until 3am in the morning. She has had a poor appetite and not been eating per nurse. Patient denies oliguria, nausea, vomit, constipation, or diarrhea. Received a call for patient having a productive cough which was noted to be blood streaked when it was removed in the suction tube. Patient will need to f/u with Dr Koo outpatient for radiation treatment of brain metastesis in 2-3 days. Exam Vital Signs Temp Pulse Resp BP Pulse Ox O2 Del Method O2 Flow Rate 97.5 F 119 H 17 116/61 92 L Nasal Cannula 2 01/26/25 12:00 01/26/25 12:00 01/26/25 12:00 01/26/25 12:00 01/26/25 12:00 01/26/25 12:00 01/26/25 12:00 Narrative Exam General: AOx3, Canadian speaking, no acute distress, able to speak full sentences, on 1L NC HEENT: NC/AT, mucous membranes moist, bilateral sclera anicteric Cardiovascular: sinus tachycardia, S1/S2 present, no murmurs appreciated Pulmonary: Present course crackles over Rt lower lobe zone. no rales/rhonchi/wheezes. Abdominal: soft, no tenderness to palpation, distended, no rebound/guarding, normal bowel sounds present Musculoskeletal: normal ROM, present nonpitting edema of BLE. Skin: warm and dry, intact, no rashes, Neuro: CN II-XII intact, no focal deficits Objective Labs 01/27/25 05:10 01/27/25 05:10 Labs: Laboratory Results - last 24 hr 01/26/25 01/26/25 01/26/25 05:06 11:01 11:01 WBC 14.7 H RBC 2.57 L Hgb 7.8 L Hct 23.2 L MCV 90 MCH 30.4 MCHC 33.6 RDW Std Deviation 47.7 H Plt Count 116 L Neut % (Auto) 70 Lymph % (Auto) 12 [place] % (Auto) 8 Eos % (Auto) 0 Baso % (Auto) 0 Neut # (Auto) 10.3 H Lymph # (Auto) 1.8 [place] # (Auto) 1.1 H Eos # (Auto) 0.0 Baso # (Auto) 0.1 Immature Gran # (Auto) 1.46 H Absolute Nucleated RBC 0.55 H Immature Gran % 10 H Nucleated RBC % 4 H Sodium 127 L Potassium 5.0 Chloride 95 L Carbon Dioxide 20.2 Anion Gap 12 BUN 45 H Creatinine 1.6 H Estim Creat Clear Calc 39.4 L eGFR 39 L BUN/Creatinine Ratio 28 H Glucose 199 H Calculated Osmolality 272 L Calcium 10.1 Corrected Calcium 10.7 H Phosphorus 3.5 Magnesium 2.4 Total Bilirubin 0.9 AST 385 H ALT 426 H Alkaline Phosphatase 406 H D Total Protein 5.8 Albumin 3.2 L Globulin 2.6 Albumin/Globulin Ratio 1.2 Ur Collection Type Clean Catch Urine Color Yellow Urine Clarity Turbid A Urine pH 5.0 Ur Specific [place] 1.014 Urine Protein Trace Urine Glucose (UA) Negative Urine Ketones Negative Urine Blood 2+ A Urine Nitrite Negative Urine Bilirubin Negative Urine Urobilinogen (Auto) Negative Ur Leukocyte Esterase Positive Urine RBC 86 H Urine WBC 200 H Ur Squamous Epith Cells 7 H Urine Bacteria None Ur Random Creatinine 69 Cancelled U Random Total Protein 42 H Ur Random Sodium < 10.0 L Ur Random Potassium Ur Random Chloride Ur Random Urea Nitrogn 01/26/25 11:01 WBC RBC Hgb Hct MCV MCH MCHC RDW Std Deviation Plt Count Neut % (Auto) Lymph % (Auto) [place] % (Auto) Eos % (Auto) Baso % (Auto) Neut # (Auto) Lymph # (Auto) [place] # (Auto) Eos # (Auto) Baso # (Auto) Immature Gran # (Auto) Absolute Nucleated RBC Immature Gran % Nucleated RBC % Sodium Potassium Chloride Carbon Dioxide Anion Gap BUN Creatinine Estim Creat Clear Calc eGFR BUN/Creatinine Ratio Glucose Calculated Osmolality Calcium Corrected Calcium Phosphorus Magnesium Total Bilirubin AST ALT Alkaline Phosphatase Total Protein Albumin Globulin Albumin/Globulin Ratio Ur Collection Type Urine Color Urine Clarity Urine pH Ur Specific [place] Urine Protein Urine Glucose (UA) Urine Ketones Urine Blood Urine Nitrite Urine Bilirubin Urine Urobilinogen (Auto) Ur Leukocyte Esterase Urine RBC Urine WBC Ur Squamous Epith Cells Urine Bacteria Ur Random Creatinine U Random Total Protein Ur Random Sodium Cancelled Ur Random Potassium 31 Ur Random Chloride < 20.0 L Ur Random Urea Nitrogn 614.0 Quality Measures Quality Measures VTE prophylaxis Assessment & Plan Assessment Current Active Medications: Generic Name Dose Route Start Last Admin Trade Name Freq PRN Reason Stop Dose Admin Hydrocodone Bitart/Acetaminophen 1 tab 01/22/25 15:46 Hydrocodone/Apap 5/325 Tablet PO 01/27/25 15:45 Q4HR PRN PAIN SCALE 4-10(Mod-Sev Citric Acid/Sodium Citrate 30 ml 01/25/25 12:30 01/26/25 08:43 Citric Acid/Sodium Citr 15 Ml Udc (Bicitra) PO 02/24/25 12:29 30 ml BID [place] Administration Furosemide 40 mg 01/23/25 09:00 01/23/25 08:19 Furosemide Inj 10 Mg/Ml 4ml Vial IVP 02/22/25 08:59 Not Given On Hold: 01/24/25 08:13 QDAY [place] Guaifenesin/Dextromethorphan 1 each 01/22/25 18:41 01/26/25 06:26 Guaifenesin/Dm Tablet PO 02/21/25 18:40 1 each BID PRN Administration COUGH Heparin Sodium (Porcine) 5,000 unit 01/22/25 21:00 01/26/25 08:42 Heparin Sod Inj 5000 Unit/Ml Vial SC 02/05/25 20:59 5,000 unit Q12HR [place] Administration Ceftriaxone Sodium/Dextrose 1 gm in 50 mls @ 100 mls/hr 01/22/25 19:00 01/26/25 08:47 Rocephin/D5w 1gm Iv Premix IV 01/29/25 18:59 100 mls/hr QDAY [place] Administration Azithromycin 500 mg/ Sodium 250 mls @ 250 mls/hr 01/22/25 18:51 01/25/25 21:14 Chloride IV 01/29/25 18:50 Infused QDAY@2100 [place] Infusion Sodium Chloride 1,000 mls @ 80 mls/hr 01/25/25 13:45 01/26/25 04:21 Ns IV 02/24/25 13:44 80 mls/hr .[id number] [place] Administration Mirtazapine 7.5 mg 01/27/25 10:30 Mirtazapine 15 Mg Tablet PO 02/26/25 10:29 QDAY [place] Ondansetron HCl 4 mg 01/22/25 15:46 01/25/25 18:49 Ondansetron Inj 2 Mg/Ml Inj 2 Ml IVP 02/21/25 15:45 4 mg Q6H PRN Administration NAUSEA OR VOMITING Protocol Sennosides 1 tab 01/22/25 15:46 Senna Tablet PO 02/21/25 15:45 QDAY PRN constipation Protocol Plan 49-year-old female with past medical history T2DM and left invasive ductal carcinoma (Onco Dr. Koo) status post lumpectomy 2022 and radiation 2023 presented on 01/22/2025 with bilateral lower extremity swelling shortness of breath x 3 days. 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 Oncologist, Dr. Cabello. CT showed metastasis to right breast, liver, lymph nodes, adrenal gland, brain. Initial labs are largely deranged: WBC 16.4 hemoglobin 8.9 PT 13.3 sodium 129 AST 341 ALT 422 alk phos 378 lactate dehydrogenase 2178. Patient was unaware of metastasis. Reported last appointment with Dr. Cabello was late November, next appointment is in February. Patient was not aware of any metastasis previously. Reported no imaging after radiation in 2023. Patient reported significant orthopnea requiring multiple pillows. Abdominal pain and bloatedness likely due to metastasis to liver. Echo 01/22 showed RVSP 56mmHg LVEF 60-65% with mild to moderate tricuspid valve regurgitation, mildly enlarged left atrium. ? US Rt breast revealed irregular mass with indistinct margins 5 to 6 o'clock position 4.9 x4.0 x4.0cm Lt breast. ? 01/25: positive bone scan: mild increased uptake over the manibrium, anterior central neck, Lt anterior ribs, and posterior Rt ribs, as well as both shoulders. Plan: - Rad/onc, Dr Koo, consulted, appreciate recs - Patient will complete radiologic treatment outpatient after immediate f/u with Dr Koo upon hospital discharge. #Loss of appetite #Depression Patient with sad, teary affect. She has been eating minimally. -started mirtazapine 7.5mg Qday #DARA, likely prerenal #Hyponatremia #Hyperkalemia Etiology includes contrast toxicity, dehydration, or Lasix use. Ddx tumor lysis syndrome: rapid progression of cancer. On admission Cr 1.1, baseline 0.9-1.1, however on 01/24, Cr 1.4 and uptrending. Plan: - Nephrology, Drs Kika and Troy consulted, appreciate recs - F/u Ulytes and renal US - NS 1L at 80cc/hr - CTM Cr, and electrolytes - Bicitra BID - Avoid nephrotoxic medications and renally dose # Bilateral pitting edema # Large right pleural effusion # Congestive heart failure # ?CAP 3+ bilateral pitting edema with acute onset shortness of breath. No history of cardiac diseases. History of breast radiation. DDx: cardiac-related CHF vs. hepatocardiac syndrome vs. CHF-induced pleural effusion vs. metastasis to lungs Patient had presented with cough, possibility of CAP cannot be ruled out. - Ultrasound study of the lungs did not reveal significant effusions to warrant thoracentesis. - US of BLE negative for deep vein thrombosis in either lower extremity. - Echo 01/22 showed RVSP 56mmHg LVEF 60-65% with mild to moderate tricuspid valve regurgitation, mildly enlarged left atrium. 01/26/25: CXR revealed worsened pleural effusions from previous imaging, more extensive involvement of the Rt lung, but also new edema in the Lt. Plan: - IVP Lasix 40mg x1 - Repeat CXR on the morning of 01/27. ? Azithromycin IV 500 mg and ceftriaxone IV 1 g daily - Low sodium diet - Renal panel worsen today, hold diuresis Lasix - Continue NC for patient comfort Health Maintenance: Code status: Full DVT prophylaxis: Heparin GI prophylaxis: None Diet: Low sodium diet Melendez: No Lines: PIV Supplemental O2: None Disposition: Med Tele This case was discussed with my attending physician, Dr. Cook, and senior resident, Dr Patel. Claus Arteaga, DO PGY I Attending Provider Attestation/Addendum I have seen and examined the patient. I was physically present for the forrest portions of the services provided including history, physical exam, diagnosis, treatment plans and orders. I agree with assessment and plan of care as documented by residents. Even though this this note was carefully revised there may still be minor errors in dag coater due to voice recognition software. Meng Cook MD
--- NOTE | 2025-01-26 15:08 | PC.SS ---
OPTION TRADER met with patient and daughter, Miesha Pang. Discharge plan will be for the patient to transition to SNF. [facility] OPTION TRADER informed family that authorization will need to be obtained in order for patient to transition to SNF. SNF referral to be submitted.
[2025-01-26 15:11] LABS: B-Type Natriuretic Peptide 60 pg/mL (0-100)
[2025-01-26 15:12] LABS: Albumin, Serum 3.2 gm/dL (3.5-5.0); Anion Gap 9 (7-16); BUN/Creatinine Ratio 30 Ratio (12-20); Blood Urea Nitrogen 42 mg/dL (9-23); Calcium 9.6 mg/dL (8.3-10.6); Calcium (Corrected) 10.2 mg/dL (8.5-10.1); Carbon Dioxide 20.6 mMol/L (20.0-31.0); Chloride 95 mMol/L (98-107); Creatinine (Component) 1.4 mg/dL (0.6-1.3); Estimated Creatinine Clearance 45.0 mL/min (>60); Glucose 210 mg/dL (74-106); Osmolality,Calculated 268 (275-295); Phosphorous 3.3 mg/dL (2.4-5.1); Potassium 4.9 mMol/L (3.4-5.1); Sodium 125 mMol/L (136-145); eGFR 46 See Note
[2025-01-26] MEDS: MIRTAZAPINE 15 MG TABLET 7.5 MG PO (15:42)
--- NOTE | 2025-01-26 16:06 | PC.SS ---
SNF referral submitted. Responses pending.
--- NOTE | 2025-01-26 16:39 | XR_ITS ---
EXAMINATION: AP chest single view TECHNIQUE: Portable AP sitting chest single view Date and time: January 26 2025 1656 hours, comparison January 22, 2025 INDICATIONS: Worsening cough shortness of breath today FINDINGS: Right subclavian Port-A-Cath tip SVC Enlarged cardiac contour with prominent vascular congestion and perihilar edema, large right pleural effusion Left axillary surgical clips Severe osteopenia IMPRESSION: Moderate CHF with large right pleural effusion Consider superimposed bilateral pneumonia, clinical correlation advised
[2025-01-26] MEDS: ALBUTEROL/IPRATROPIUM (Duoneb) RT SOL 3 ML NEBU INH (16:51)
[2025-01-26] MEDS: guaiFENesin/COD SYRUP 5 ML UDC PO (17:07)
[2025-01-26] MEDS: AZITHROMYCIN INJ 500 MG in SODIUM CHLORIDE 0.9% 250 ML 250 ML 250 MG IV (20:55)
[2025-01-26] MEDS: FUROSEMIDE INJ 10 MG/ML 4ML VIAL 40 MG IVP (20:56)
[2025-01-27] VITALS (14 sets, daily range): BP systolic 95–114; BP diastolic 53–66; PULSE 100–115; RESP 16–26; TEMP 35.8–36.8; O2SAT 93–97
[2025-01-27] MEDS: CITRIC ACID/SODIUM CITR 15 ML UDC (BICITRA) 30 ML PO ×3 (00:04→20:07)
[2025-01-27] MEDS: SODIUM CHLORIDE 1 GM TABLET PO ×2 (00:04→10:23)
--- NOTE | 2025-01-27 06:00 | XR_ITS ---
EXAMINATION: AP chest single view TECHNIQUE: AP portable upright chest single view Date and time: January 27, 2025, 0601 hours, comparison January 26, 2025 INDICATIONS: Difficulty breathing this week with large right pleural effusion FINDINGS: Enlarged cardiac contour with prominent vascular congestion again noted Bilateral perihilar edema and likely superimposed pneumonia in the right lung Layered significant right pleural fluid Right subclavian Port-A-Cath tip satisfactory position Left axillary surgical clips IMPRESSION: Moderate CHF with significant right pleural fluid Consider ultrasound right hemithorax follow-up to confirm large right pleural effusion
[2025-01-27 06:11] LABS: Basophils # (Auto) 0.1 Thou/mm3 (0.0-0.2); Basophils % (Auto) 0 % (0-2.5); Eosinophils # (Auto) 0.0 Thou/mm3 (0.0-0.5); Eosinophils % (Auto) 0 % (0-10); Hematocrit 22.0 % (36.0-46.0); Immature Granulocytes Auto 1.54 Thou/mm3 (0.00-0.00); Lymphocytes # (Auto) 1.9 Thou/mm3 (1.0-4.8); Lymphocytes % (Auto) 13 % (10-50); Mean Corpuscular HGB Conc 34.1 g/dl (31.0-37.0); Mean Corpuscular Hemoglobin 30.6 pg (25.0-35.0); Mean Corpuscular Volume 90 fL (80-100); Monocytes # (Auto) 1.0 Thou/mm3 (0.0-0.8); Monocytes % (Auto) 7 % (0-12); Neutrophils # (Auto) 10.3 Thou/mm3 (1.8-7.7); Neutrophils % (Auto) 69 % (37-80); Nucleated Red Blood Cell # 0.51 Thou/mm3 (0.00-0.00); Nucleated Red Blood Cell % 4 /100 WBC (0); Platelet Count 104 Thou/mm3 (140-440); RDW Standard Deviation 47.6 fL (36.4-46.3); Red Blood Count 2.45 Miln/mm3 (4.00-5.20); White Blood Count 14.8 Thou/mm3 (3.6-11.0)
[2025-01-27 06:23] LABS: Hemoglobin 7.5 g/dL (12.0-16.0)
[2025-01-27 06:28] LABS: Alanine Aminotransferase 444 U/L (10-49); Albumin, Serum 3.1 gm/dL (3.5-5.0); Albumin/Globulin Ratio 1.1 (1.2-2.2); Alkaline Phosphatase 439 U/L (46-116); Anion Gap 10 (7-16); Aspartate Amino Transferase 403 U/L (0-34); BUN/Creatinine Ratio 35 Ratio (12-20); Bilirubin,Total 0.9 mg/dL (0.3-1.2); Blood Urea Nitrogen 45 mg/dL (9-23); Calcium 10.4 mg/dL (8.3-10.6); Calcium (Corrected) 11.1 mg/dL (8.5-10.1); Carbon Dioxide 19.6 mMol/L (20.0-31.0); Chloride 97 mMol/L (98-107); Creatinine (Component) 1.3 mg/dL (0.6-1.3); Estimated Creatinine Clearance 48.4 mL/min (>60); Globulin 2.8 gm/dL (2.3-3.5); Glucose 193 mg/dL (74-106); Magnesium 2.4 mg/dL (1.6-2.6); Osmolality,Calculated 271 (275-295); Phosphorous 3.5 mg/dL (2.4-5.1); Potassium 4.8 mMol/L (3.4-5.1); Sodium 127 mMol/L (136-145); Total Protein 5.9 gm/dL (5.7-8.2); eGFR 50 See Note
--- NOTE | 2025-01-27 07:58 | CHAP ---
Patient was visited by a Spiritual Care Volunteer on 01/26/2025 between 1410 and 1712 and received comfort, encouragement and/or prayer.
--- NOTE | 2025-01-27 08:21 | ESPR_ITS ---
Documentation for date of: 01/27/25 Subjective Subjective Interval history: 49-year-old female with past medical history T2DM and left invasive ductal carcinoma (Onco Dr. Koo) status post lumpectomy 2022 and radiation 2023 presents with bilateral lower extremity swelling shortness of breath x 3 days. Patient reported bilateral leg pain x 6 days, ibuprofen did not help. Reported abdominal pain in mid epigastric x 2 days, bloated in nature. Reported shortness of breath x 3 days. Reported all symptoms are new to her. Last time visited oncologist was late November with Dr. Cabello. Next appointment in February. Since last radiation that was 2023, no scan after. Denied history of smoking, alcohol, drug use. Nephrology consulted for DARA. 01/25/25: Patient seen and examined at bedside. Patient denies any bodily pain. Reports shortness of breath and lower extremity swelling started 3 days prior and very suddenly. In November, external breast lesions initially started as a small scab and went to PCP and was prescribed fluconazole and levofloxacin, completed course. Son at bedside reports very poor p.o. intake for the past month. Denies fever/chills, urinary symptoms or recent illness. Nephrology consulted for DARA, leading differential diagnosis includes progression of cancer, prerenal iso poor intake vs RTA. 01/26/25: Patient seen examined at bedside. Endorses anxiety and shortness of breath due to stomach fullness. States very poor appetite and when attempting to drink currently feels nauseous. Daughter at bedside emotional regarding current situation, also states that Zofran does not alleviate nausea. Recommend Phenergan or Reglan as well as mirtazapine as patient does endorse anxiety with low appetite. 01/27/25: Patient seen and examined at bedside. Overnight desaturaturated and CXR shows moderate CHF with large R pleural effusion. Feels better than yesterday following afternoon lasix yesterday. Still low appetite. Daughter and son at bedside, all questions adequately answered. Patient requests to go to rehab following discharge. Recommend albumin with Lasix and start sodium bicarb 650 mg QD. Exam Vital Signs Temp Pulse Resp BP Pulse Ox O2 Del Method O2 Flow Rate 98.3 F 113 H 18 105/66 93 L Nasal Cannula 2 01/27/25 08:00 01/27/25 08:00 01/27/25 08:00 01/27/25 08:00 01/27/25 08:00 01/27/25 08:00 01/27/25 08:00 Narrative Exam GENERAL: AOx3, no acute distress, slightly anxious HEENT: mucous membranes moist, bilateral sclera anicteric CARDIOVASCULAR: regular rhythm, tachycardic, S1/S2 present, no murmurs appreciated PULMONARY: mild bilateral crackles L>R, mildly decreased breath sounds R>L ABDOMINAL: soft, non-tender, non-distended, no rebound/guarding, bowel sounds present EXTREMITIES: trace non pitting edema bilaterally SKIN: warm and dry, R breast lesion, covered with allevyn dressings NEURO: CN II-XII grossly intact, no focal deficits, alert, following commands Objective Labs 01/28/25 05:00 01/27/25 05:10 Labs: Laboratory Results - last 24 hr 01/26/25 01/26/25 01/26/25 11:01 11:01 11:01 WBC RBC Hgb Hct MCV MCH MCHC RDW Std Deviation Plt Count Neut % (Auto) Lymph % (Auto) [place] % (Auto) Eos % (Auto) Baso % (Auto) Neut # (Auto) Lymph # (Auto) [place] # (Auto) Eos # (Auto) Baso # (Auto) Immature Gran # (Auto) Absolute Nucleated RBC Immature Gran % Nucleated RBC % Sodium Potassium Chloride Carbon Dioxide Anion Gap BUN Creatinine Estim Creat Clear Calc eGFR BUN/Creatinine Ratio Glucose Calculated Osmolality Calcium Corrected Calcium Phosphorus Magnesium Total Bilirubin AST ALT Alkaline Phosphatase B-Natriuretic Peptide Total Protein Albumin Globulin Albumin/Globulin Ratio Ur Collection Type Clean Catch Urine Color Yellow Urine Clarity Turbid A Urine pH 5.0 Ur Specific [place] 1.014 Urine Protein Trace Urine Glucose (UA) Negative Urine Ketones Negative Urine Blood 2+ A Urine Nitrite Negative Urine Bilirubin Negative Urine Urobilinogen (Auto) Negative Ur Leukocyte Esterase Positive Urine RBC 86 H Urine WBC 200 H Ur Squamous Epith Cells 7 H Urine Bacteria None Ur Random Creatinine 69 Cancelled U Random Total Protein 42 H Ur Random Sodium < 10.0 L Cancelled Ur Random Potassium 31 Ur Random Chloride < 20.0 L Ur Random Urea Nitrogn 614.0 01/26/25 01/27/25 14:45 05:10 WBC 14.8 H RBC 2.45 L Hgb 7.5 L Hct 22.0 L MCV 90 MCH 30.6 MCHC 34.1 RDW Std Deviation 47.6 H Plt Count 104 L Neut % (Auto) 69 Lymph % (Auto) 13 [place] % (Auto) 7 Eos % (Auto) 0 Baso % (Auto) 0 Neut # (Auto) 10.3 H Lymph # (Auto) 1.9 [place] # (Auto) 1.0 H Eos # (Auto) 0.0 Baso # (Auto) 0.1 Immature Gran # (Auto) 1.54 H Absolute Nucleated RBC 0.51 H Immature Gran % 10 H Nucleated RBC % 4 H Sodium 125 L 127 L Potassium 4.9 4.8 Chloride 95 L 97 L Carbon Dioxide 20.6 19.6 L Anion Gap 9 10 BUN 42 H 45 H Creatinine 1.4 H 1.3 Estim Creat Clear Calc 45.0 L 48.4 L eGFR 46 L 50 L BUN/Creatinine Ratio 30 H 35 H Glucose 210 H 193 H Calculated Osmolality 268 L 271 L Calcium 9.6 10.4 Corrected Calcium 10.2 H 11.1 H Phosphorus 3.3 3.5 Magnesium 2.4 Total Bilirubin 0.9 AST 403 H ALT 444 H Alkaline Phosphatase 439 H D B-Natriuretic Peptide 60 Total Protein 5.9 Albumin 3.2 L 3.1 L Globulin 2.8 Albumin/Globulin Ratio 1.1 L Ur Collection Type Urine Color Urine Clarity Urine pH Ur Specific [place] Urine Protein Urine Glucose (UA) Urine Ketones Urine Blood Urine Nitrite Urine Bilirubin Urine Urobilinogen (Auto) Ur Leukocyte Esterase Urine RBC Urine WBC Ur Squamous Epith Cells Urine Bacteria Ur Random Creatinine U Random Total Protein Ur Random Sodium Ur Random Potassium Ur Random Chloride Ur Random Urea Nitrogn Quality Measures Quality Measures VTE prophylaxis Assessment & Plan Assessment Current Active Medications: Generic Name Dose Route Start Last Admin Trade Name Freq PRN Reason Stop Dose Admin Hydrocodone Bitart/Acetaminophen 1 tab 01/22/25 15:46 Hydrocodone/Apap 5/325 Tablet PO 01/27/25 15:45 Q4HR PRN PAIN SCALE 4-10(Mod-Sev Albuterol/Ipratropium 3 ml 01/26/25 18:23 Albuterol/Ipratropium (Duoneb) Rt Nori 3 Ml Nebu INH 02/25/25 18:22 Q2HR PRN SHORTNESS OF BREATH OR WHEEZE Citric Acid/Sodium Citrate 30 ml 01/25/25 12:30 01/27/25 00:04 Citric Acid/Sodium Citr 15 Ml Udc (Bicitra) PO 02/24/25 12:29 30 ml BID [place] Administration Furosemide 40 mg 01/23/25 09:00 01/23/25 08:19 Furosemide Inj 10 Mg/Ml 4ml Vial IVP 02/22/25 08:59 Not Given On Hold: 01/24/25 08:13 QDAY [place] Guaifenesin/Codeine Phosphate 5 ml 01/26/25 16:39 Guaifenesin/Cod Syrup 5 Ml Udc PO 02/25/25 16:38 Q4HR PRN COUGH Protocol Guaifenesin/Dextromethorphan 1 each 01/22/25 18:41 01/26/25 15:43 Guaifenesin/Dm Tablet PO 02/21/25 18:40 1 each On Hold: 01/26/25 16:43 BID PRN Administration Comment: GUAFENISEN WITH COUGH CODIENE ORDERED Heparin Sodium (Porcine) 5,000 unit 01/22/25 21:00 01/26/25 08:42 Heparin Sod Inj 5000 Unit/Ml Vial SC 02/05/25 20:59 5,000 unit On Hold: 01/26/25 19:34 Q12HR [place] Administration Ceftriaxone Sodium/Dextrose 1 gm in 50 mls @ 100 mls/hr 01/22/25 19:00 01/26/25 08:47 Rocephin/D5w 1gm Iv Premix IV 01/29/25 18:59 100 mls/hr QDAY [place] Administration Azithromycin 500 mg/ Sodium 250 mls @ 250 mls/hr 01/22/25 18:51 01/26/25 20:55 Chloride IV 01/29/25 18:50 250 mls/hr QDAY@2100 [place] Administration Albumin Human 25 gm in 100 mls @ 100 mls/hr 01/27/25 08:10 Albuminex 25% Ivpb IV 01/27/25 09:09 X1 ONE Mirtazapine 7.5 mg 01/27/25 10:30 Mirtazapine 15 Mg Tablet PO 02/26/25 10:29 QDAY [place] Ondansetron HCl 4 mg 01/22/25 15:46 01/25/25 18:49 Ondansetron Inj 2 Mg/Ml Inj 2 Ml IVP 02/21/25 15:45 4 mg Q6H PRN Administration NAUSEA OR VOMITING Protocol Sennosides 1 tab 01/22/25 15:46 Senna Tablet PO 02/21/25 15:45 QDAY PRN constipation Protocol Sodium Chloride 1 gm 01/26/25 20:30 01/27/25 00:04 Sodium Chloride 1 Gm Tablet PO 02/25/25 20:29 1 gm DAILY [place] Administration Plan Kym Zapata 49F pmx significant for NIDDM2 and left invasive ductal carcinoma (Onco Dr. Koo) s/p lumpectomy 2022 and radiation 2023 presents with bilateral lower extremity swelling shortness of breath x 3 days, found to have mets to R breast, liver, adrenal glands, and brain (cerebellar and cerebral) with R hilar and abdominal lymphadenopathy. #DARA, likely prerenal, improved #UTI, E.coli pansensitive On admission Cr 1.1, baseline 0.9-1.1, however on 01/24, Cr 1.4 and increased to 1.6. During this admission, mets discovered to R breast, liver, adrenal glands, and brain (cerebellar and cerebral) with R hilar and abdominal lymphadenopathy. Renal US bilateral renal cortical thinning, mild renal scarring, no hydronephrosis FeNa 0.2% and FeUr 29.7%, both indicating prerenal etiology Ddx: decreased PO intake iso cancer with mets with contrast nephropathy and/or administration of lasix vs hepatorenal Plan: - Recommend albumin with Lasix administration as following 2L fluid resuscitation, patient desaturated with worsening fluid overload shown on CXR although kidney function improved - CTM Cr - Avoid nephrotoxic medications and renally dose. Avoid contrast. - Ceftriaxone (01/22- #Hyponatremia #Hyperkalemia #Hypercalcemia On admission Na 129, when on 11/2024 Na 143. No hx of hyponatremia. On 01/25, K 5.2. Ddx: 2/2 progression of carcinoma vs poor PO intake Plan: - Recommend sodium bicarb 650 mg QD and to continue outpatient - CTM electrolytes - Encourage PO intake, continue mirtazapine # Invasive ductal carcinoma metastasis to right breast, liver, lymph nodes, adrenal glands, brain # Large right pleural effusion # Bilateral pitting edema # Large right pleural effusion # Congestive heart failure # ?CAP Plan: - Above managed by primary team Plan of care discussed with attending Dr. Anand. Marlena Simmons, DO PGY-1 Internal Medicine Attending Provider Attestation/Addendum atient seen and examined with resident physician Dr. Simmons. Note reviewed, agree with findings and recommendations. Patient currently seen in medical floor. Daughter on the phone is the historic interpreter. son at bedside. Unfortunately lady with metastatic infiltrating breast cancer with mets to the brain. Patient used to follow-up with Dr. Cabello in the outpatient setting. On anastrozole. November 2024 CA 15-3 levels have started to elevate. Patient now with necrotizing cancer of the right breast and metastatic disease to the entire body. DARA-multifactorial (contrast nephropathy/decreased p.o. intake/hypoalbuminemia. Creatinine better at 1.3 Patient with a significant elevation in liver enzymes. Renal ultrasound showed no hydronephrosis. Urine sodium less than 10 consistent with hypovolemic hyponatremia prerenal azotemia strict I&O's ordered. Noted metabolic acidosis-Bicitra ordered. Hyponatremia secondary to hypovolemic hyponatremia. Added salt tablet yesterday. Patient went due to fluid overload and was given Lasix and is tad better. Recommended to primary team to give Lasix and albumin today. edema probably from hypoalbuminemia/third spacing. Complaining of significant nausea vomiting, decreased p.o. intake. Zofran not helping. Consider Reglan/promethazine versus mirtazapine for appetite stimulant. Time spent more than 20 minutes regarding plan of care and disease management. Spoke to daughter at length. Explained poor prognosis.
--- NOTE | 2025-01-27 09:04 | PC.SS ---
Follow up note: Thoracentesis is pending. Pt on IV diuresis. Pt will require PT evaluation for SNF placement.
--- NOTE | 2025-01-27 09:19 | PD.ONCPROG ---
Documentation for date of: 01/27/25 Subjective Subjective Interval history: Patient stage IV breast cancer with brain mets with imaging studies suggesting bone liver chest lung abdomen involvement. Exam Vital Signs Temp Pulse Resp BP Pulse Ox O2 Del Method O2 Flow Rate 98.3 F 113 H 18 105/66 93 L Nasal Cannula 2 01/27/25 08:00 01/27/25 08:00 01/27/25 08:00 01/27/25 08:00 01/27/25 08:00 01/27/25 08:00 01/27/25 08:00 Narrative Exam Appears reasonably comfortable with no complaints of headaches or severe pain. Objective Labs 01/27/25 05:10 01/27/25 05:10 Labs: Laboratory Results - last 24 hr 01/26/25 01/26/25 01/26/25 11:01 11:01 11:01 WBC RBC Hgb Hct MCV MCH MCHC RDW Std Deviation Plt Count Neut % (Auto) Lymph % (Auto) [place] % (Auto) Eos % (Auto) Baso % (Auto) Neut # (Auto) Lymph # (Auto) [place] # (Auto) Eos # (Auto) Baso # (Auto) Immature Gran # (Auto) Absolute Nucleated RBC Immature Gran % Nucleated RBC % Sodium Potassium Chloride Carbon Dioxide Anion Gap BUN Creatinine Estim Creat Clear Calc eGFR BUN/Creatinine Ratio Glucose Calculated Osmolality Calcium Corrected Calcium Phosphorus Magnesium Total Bilirubin AST ALT Alkaline Phosphatase B-Natriuretic Peptide Total Protein Albumin Globulin Albumin/Globulin Ratio Ur Collection Type Clean Catch Urine Color Yellow Urine Clarity Turbid A Urine pH 5.0 Ur Specific [place] 1.014 Urine Protein Trace Urine Glucose (UA) Negative Urine Ketones Negative Urine Blood 2+ A Urine Nitrite Negative Urine Bilirubin Negative Urine Urobilinogen (Auto) Negative Ur Leukocyte Esterase Positive Urine RBC 86 H Urine WBC 200 H Ur Squamous Epith Cells 7 H Urine Bacteria None Ur Random Creatinine 69 Cancelled U Random Total Protein 42 H Ur Random Sodium < 10.0 L Cancelled Ur Random Potassium 31 Ur Random Chloride < 20.0 L Ur Random Urea Nitrogn 614.0 01/26/25 01/27/25 14:45 05:10 WBC 14.8 H RBC 2.45 L Hgb 7.5 L Hct 22.0 L MCV 90 MCH 30.6 MCHC 34.1 RDW Std Deviation 47.6 H Plt Count 104 L Neut % (Auto) 69 Lymph % (Auto) 13 [place] % (Auto) 7 Eos % (Auto) 0 Baso % (Auto) 0 Neut # (Auto) 10.3 H Lymph # (Auto) 1.9 [place] # (Auto) 1.0 H Eos # (Auto) 0.0 Baso # (Auto) 0.1 Immature Gran # (Auto) 1.54 H Absolute Nucleated RBC 0.51 H Immature Gran % 10 H Nucleated RBC % 4 H Sodium 125 L 127 L Potassium 4.9 4.8 Chloride 95 L 97 L Carbon Dioxide 20.6 19.6 L Anion Gap 9 10 BUN 42 H 45 H Creatinine 1.4 H 1.3 Estim Creat Clear Calc 45.0 L 48.4 L eGFR 46 L 50 L BUN/Creatinine Ratio 30 H 35 H Glucose 210 H 193 H Calculated Osmolality 268 L 271 L Calcium 9.6 10.4 Corrected Calcium 10.2 H 11.1 H Phosphorus 3.3 3.5 Magnesium 2.4 Total Bilirubin 0.9 AST 403 H ALT 444 H Alkaline Phosphatase 439 H D B-Natriuretic Peptide 60 Total Protein 5.9 Albumin 3.2 L 3.1 L Globulin 2.8 Albumin/Globulin Ratio 1.1 L Ur Collection Type Urine Color Urine Clarity Urine pH Ur Specific [place] Urine Protein Urine Glucose (UA) Urine Ketones Urine Blood Urine Nitrite Urine Bilirubin Urine Urobilinogen (Auto) Ur Leukocyte Esterase Urine RBC Urine WBC Ur Squamous Epith Cells Urine Bacteria Ur Random Creatinine U Random Total Protein Ur Random Sodium Ur Random Potassium Ur Random Chloride Ur Random Urea Nitrogn Assessment & Plan A&P Narrative 1. History of stage IIAT2 N0 receptor positive HER2 negative left breast CA status post partial mastectomy postop radiation completed nearly 2 years ago. Had been on anastrozole since. 2. Recurrent metastatic breast CA involving right chest, with pleural effusion, right breast abdomen, and brain. 3. Receiving supportive measures for electrolyte imbalance, infection cardiopulmonary symptoms. 3. Most urgent in terms of patient's morbidity and mortality are the mets in the brain even though she is minimally symptomatic at this time. 4 Requested urgent [facility] to schedule patient for brain radiation, which will likely start in about a week and can be done as outpatient upon discharge. 5. Discussed with family about comprehensive evaluation including PET and further treatment which will include systemic chemo once discharged. Time Spent With Patient Time: Total time spent is greater than 50% in coordination of care (as documented) at patient's floor/unit and/or counseling patient:
[2025-01-27] MEDS: MIRTAZAPINE 15 MG TABLET 7.5 MG PO (10:23)
[2025-01-27] MEDS: ALBUMIN HUMAN-KJDA 25% IVPB 25 GM/100 ML BTL IV (10:28)
[2025-01-27] MEDS: cefTRIAXone/D5w 1gm IV premix 1 GM/50 ML BAG IV (10:28)
[2025-01-27] MEDS: FUROSEMIDE INJ 10 MG/ML 4ML VIAL 40 MG IVP (12:15)
--- NOTE | 2025-01-27 13:29 | XR_ITS ---
EXAMINATION: Ultrasound-guided pneumothorax Ultrasound left hemithorax Date and time: January 27, 2025, 1400 hours INDICATIONS: Shortness of breath this week. TECHNIQUE AND FINDINGS: Grayscale sonographic images hemithoraces No left pleural fluid Minimal right pleural fluid IMPRESSION: Minimal right pleural fluid
--- NOTE | 2025-01-27 13:41 | PC.SS ---
SS has sent PT notes to [facility] using [facility]. Dianna from [facility] is aware.
--- NOTE | 2025-01-27 13:43 | PC.CC ---
PASRR Level 1 completed and downloaded. Level 2 not required.
--- NOTE | 2025-01-27 16:34 | PC.SS ---
SS followed up with patient's daughter Lorenza at bedside (and daughter, Miesha, phone# [phone]) to confirm SNF placement to [facility]. Both daughters were requesting [facility]. SS has explained [facility] has started insurance authorization due to [facility] being their preferred SNF choice. Dtr Miesha explained she spoke to Angelika from [facility] and was informed they are [facility]. SS spoke to Dianna from [facility] who explained she has submitted for insurance authorization and has a pending authorization number. [facility] has not cancelled insurance authorization request. Dtr Miesha is aware. SS provided verbal choices for SNF to [facility] or [facility]. Dtr, Dianna is now requesting pt dc to [facility].
--- NOTE | 2025-01-27 17:56 | ESPR_ITS ---
<Statement entered by Kelly Kumar MD - 01/28/25 19:38> Patient was seen and examined at bedside. I agree on the assessment and plan on this note as documented by resident Dr Claus Arteaga DO PGY1. 49-year-old female with past medical history as below admitted for acute hypoxic respiratory failure, found to have underlying CHF exacerbation and possible pneumonia, during hospitalization patient was noted to have significant metastasis to liver lymph nodes adrenal glands and brain likely from breast cancer. Patient had worsening respiratory status yesterday evening, was given IV Lasix which patient has responded remarkably, nephrology on board recommends additional dose of Lasix and albumin this morning, azithromycin was discontinued will continue with ceftriaxone to complete treatment for pneumonia and underlying urinary tract infection. Case was discussed with oncologist Dr. Koo who is in the process of obtaining authorization for outpatient radiation. Patient and patient's family updated at bedside, patient was kept n.p.o. for possible thoracentesis today however not enough fluid for procedure per interventional radiology. Anticipate discharge once patient has authorization for senior care facility placement, hospice case manager was informed. Case discussed with attending Dr. Meng Kumar MD PGY-2 Documentation for date of: 01/27/25 Subjective Subjective Interval history: No acute event overnight. Patient is seen and examined by bedside. Patient reported feeling the same. SOB improved on 2L NC. Received a call for patient having a productive cough the night before which was noted to be blood streaked when it was removed in the suction tube. Denied abdominal discomfort today. CXR completed then showed worsening pulmonary congestion and pleural effusions. Lasix 40mg 15min after albumen 25 ordered. Repeat CXR in AM shows some clearance of fluid. Patient NPO in anticipation of possible thoracentesis in the afternoon. Patient denies oliguria, nausea, vomit, constipation, or diarrhea. Patient will need to f/u with Dr Koo outpatient for radiation treatment of brain metastesis in 2-3 days. Presently, he is working on insurance authorization. Exam Vital Signs Temp Pulse Resp BP Pulse Ox O2 Del Method O2 Flow Rate 98.1 F 114 H 16 107/53 L 93 L Nasal Cannula 1 01/27/25 16:00 01/27/25 16:00 01/27/25 16:00 01/27/25 16:00 01/27/25 16:00 01/27/25 16:00 01/27/25 16:00 Narrative Exam General: AOx3, Indian speaking, no acute distress, able to speak full sentences, on 1L NC HEENT: NC/AT, mucous membranes moist, bilateral sclera anicteric Cardiovascular: sinus tachycardia, S1/S2 present, no murmurs appreciated Pulmonary: Present course crackles over Rt lower lobe zone. no rales/rhonchi/wheezes. Abdominal: soft, no tenderness to palpation, distended, no rebound/guarding, normal bowel sounds present Musculoskeletal: normal ROM, present nonpitting edema of BLE. Skin: warm and dry, intact, no rashes, Neuro: CN II-XII intact, no focal deficits Objective Labs 01/30/25 05:00 01/30/25 05:00 Labs: Laboratory Results - last 24 hr 01/27/25 05:10 WBC 14.8 H RBC 2.45 L Hgb 7.5 L Hct 22.0 L MCV 90 MCH 30.6 MCHC 34.1 RDW Std Deviation 47.6 H Plt Count 104 L Neut % (Auto) 69 Lymph % (Auto) 13 Thomas % (Auto) 7 Eos % (Auto) 0 Baso % (Auto) 0 Neut # (Auto) 10.3 H Lymph # (Auto) 1.9 Thomas # (Auto) 1.0 H Eos # (Auto) 0.0 Baso # (Auto) 0.1 Immature Gran # (Auto) 1.54 H Absolute Nucleated RBC 0.51 H Immature Gran % 10 H Nucleated RBC % 4 H Sodium 127 L Potassium 4.8 Chloride 97 L Carbon Dioxide 19.6 L Anion Gap 10 BUN 45 H Creatinine 1.3 Estim Creat Clear Calc 48.4 L eGFR 50 L BUN/Creatinine Ratio 35 H Glucose 193 H Calculated Osmolality 271 L Calcium 10.4 Corrected Calcium 11.1 H Phosphorus 3.5 Magnesium 2.4 Total Bilirubin 0.9 AST 403 H ALT 444 H Alkaline Phosphatase 439 H D Total Protein 5.9 Albumin 3.1 L Globulin 2.8 Albumin/Globulin Ratio 1.1 L Quality Measures Quality Measures VTE prophylaxis Assessment & Plan Assessment Current Active Medications: Generic Name Dose Route Start Last Admin Trade Name Freq PRN Reason Stop Dose Admin Albuterol/Ipratropium 3 ml 01/26/25 18:23 Albuterol/Ipratropium (Duoneb) Rt Nori 3 Ml Nebu INH 02/25/25 18:22 Q2HR PRN SHORTNESS OF BREATH OR WHEEZE Citric Acid/Sodium Citrate 30 ml 01/25/25 12:30 01/27/25 10:22 Citric Acid/Sodium Citr 15 Ml Udc (Bicitra) PO 02/24/25 12:29 30 ml BID [place] Administration Furosemide 40 mg 01/23/25 09:00 01/23/25 08:19 Furosemide Inj 10 Mg/Ml 4ml Vial IVP 02/22/25 08:59 Not Given On Hold: 01/24/25 08:13 QDAY [place] Guaifenesin/Codeine Phosphate 5 ml 01/26/25 16:39 Guaifenesin/Cod Syrup 5 Ml Udc PO 02/25/25 16:38 Q4HR PRN COUGH Protocol Guaifenesin/Dextromethorphan 1 each 01/22/25 18:41 01/26/25 15:43 Guaifenesin/Dm Tablet PO 02/21/25 18:40 1 each On Hold: 01/26/25 16:43 BID PRN Administration Comment: GUAFENISEN WITH COUGH CODIENE ORDERED Heparin Sodium (Porcine) 5,000 unit 01/22/25 21:00 01/26/25 08:42 Heparin Sod Inj 5000 Unit/Ml Vial SC 02/05/25 20:59 5,000 unit On Hold: 01/26/25 19:34 Q12HR [place] Administration Ceftriaxone Sodium/Dextrose 1 gm in 50 mls @ 100 mls/hr 01/22/25 19:00 01/27/25 10:28 Rocephin/D5w 1gm Iv Premix IV 01/29/25 18:59 100 mls/hr QDAY [place] Administration Mirtazapine 7.5 mg 01/27/25 10:30 01/27/25 10:23 Mirtazapine 15 Mg Tablet PO 02/26/25 10:29 7.5 mg QDAY [place] Administration Ondansetron HCl 4 mg 01/22/25 15:46 01/25/25 18:49 Ondansetron Inj 2 Mg/Ml Inj 2 Ml IVP 02/21/25 15:45 4 mg Q6H PRN Administration NAUSEA OR VOMITING Protocol Sennosides 1 tab 01/22/25 15:46 Senna Tablet PO 02/21/25 15:45 QDAY PRN constipation Protocol Sodium Chloride 1 gm 01/26/25 20:30 01/27/25 10:23 Sodium Chloride 1 Gm Tablet PO 02/25/25 20:29 1 gm DAILY [place] Administration Plan 49-year-old female with past medical history T2DM and left invasive ductal carcinoma (Onco Dr. Koo) status post lumpectomy 2022 and radiation 2023 presented on 01/22/2025 with bilateral lower extremity swelling shortness of breath x 3 days. 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 Oncologist, Dr. Cabello. CT showed metastasis to right breast, liver, lymph nodes, adrenal gland, brain. Initial labs are largely deranged: WBC 16.4 hemoglobin 8.9 PT 13.3 sodium 129 AST 341 ALT 422 alk phos 378 lactate dehydrogenase 2178. Patient was unaware of metastasis. Reported last appointment with Dr. Cabello was late November, next appointment is in February. Patient was not aware of any metastasis previously. Reported no imaging after radiation in 2023. Patient reported significant orthopnea requiring multiple pillows. Abdominal pain and bloatedness likely due to metastasis to liver. Echo 01/22 showed RVSP 56mmHg LVEF 60-65% with mild to moderate tricuspid valve regurgitation, mildly enlarged left atrium. ? US Rt breast revealed irregular mass with indistinct margins 5 to 6 o'clock position 4.9 x4.0 x4.0cm Lt breast. ? 01/25: positive bone scan: mild increased uptake over the manibrium, anterior central neck, Lt anterior ribs, and posterior Rt ribs, as well as both shoulders. Plan: - Rad/onc, Dr Koo, consulted, appreciate recs - Patient will complete radiologic treatment outpatient after immediate f/u with Dr Koo upon hospital discharge. Sessions will likely start in about a week and can be done as outpatient. #Loss of appetite #Depression Patient with sad, teary affect. She has been eating minimally. -started mirtazapine 7.5mg Qday #DARA, likely prerenal, improving #Hyponatremia #Hyperkalemia Etiology includes contrast toxicity, dehydration, or Lasix use. Ddx tumor lysis syndrome: rapid progression of cancer. On admission Cr 1.1, baseline 0.9-1.1, however on 01/24, Cr 1.4 and uptrending. by 01/27, Cr had been trending down (1.6, 1.4, 1.3) Plan: - Nephrology, Abigail Anand and Troy consulted, appreciate recs - Will start sodium bicarb 650mg QD upon discharge - NS 1L at 80cc/hr - CTM Cr, and electrolytes - Bicitra BID - Avoid nephrotoxic medications and renally dose # Bilateral pitting edema # Large right pleural effusion # Congestive heart failure # ?CAP 3+ bilateral pitting edema with acute onset shortness of breath. No history of cardiac diseases. History of breast radiation. DDx: cardiac-related CHF vs. hepatocardiac syndrome vs. CHF-induced pleural effusion vs. metastasis to lungs Patient had presented with cough, possibility of CAP cannot be ruled out. - Ultrasound study of the lungs did not reveal significant effusions to warrant thoracentesis. - US of BLE negative for deep vein thrombosis in either lower extremity. - Echo 01/22 showed RVSP 56mmHg LVEF 60-65% with mild to moderate tricuspid valve regurgitation, mildly enlarged left atrium. 01/26/25: CXR revealed worsened pleural effusions from previous imaging, more extensive involvement of the Rt lung, but also new edema in the Lt. 01/27/25: Showed improvement in pulmonary edema. Plan: - IVP Lasix 40mg x1 after albumen 25g - Thoracentesis unnecessary as there is but minimal right pleural fluid. ? ceftriaxone IV 1 g daily - completed 5d course of azithromycin 500mg - Low sodium diet - Renal panel worsen today, hold diuresis Lasix - Continue NC for patient comfort #Hyponatremia Health Maintenance: Code status: Full DVT prophylaxis: Heparin GI prophylaxis: None Diet: Low sodium diet Melendez: No Lines: PIV Supplemental O2: None Disposition: Med Tele This case was discussed with my attending physician, Dr. Cook, and senior resident, Dr Kumar. Claus Arteaga, DO PGY I Attending Provider Attestation/Addendum I have seen and examined the patient. I was physically present for the forrest portions of the services provided including history, physical exam, diagnosis, treatment plans and orders. I agree with assessment and plan of care as documented by residents. Patient seen and examined at bedside this morning. Appears tired but comfortable and saturating well on 2 L nasal cannula. Vital signs were stable except for tachycardia. Lab results show stable WBC at 14.8, slightly downtrending hemoglobin at 7.5 from 7.8 yesterday. Chemistry panel showed improving sodium level at 127 from 125 yesterday. Creatinine level also improved to 1.3 from 1.4 yesterday. AST/ALT and ALP continue to remain high but no drastic changes. Yesterday evening, patient had an episode of worsening shortness of breath, received Lasix IV x 1. Discussed with nephrology, recommended continuing Lasix with albumin. We will discontinue azithromycin and continue Rocephin for her pneumonia and UTI. Oncology on board, patient is planned for outpatient radiation once stable for discharge. Patient was n.p.o. overnight for possible thoracentesis today but did not have enough fluid for safe procedure by IR. Patient is awaiting placement to SNF. Even though this this note was carefully revised there may still be minor errors in store deli manager due to voice recognition software. Meng Cook MD
[2025-01-28] VITALS (14 sets, daily range): BP systolic 93–118; BP diastolic 53–64; PULSE 87–122; RESP 18–25; TEMP 36.1–36.8; O2SAT 92–99; BMI 11.0
[2025-01-28] MEDS: ACETAMINOPHEN 325 MG TABLET 650 MG PO (02:57)
[2025-01-28 06:34] LABS: Basophils # (Auto) 0.0 Thou/mm3 (0.0-0.2); Basophils % (Auto) 0 % (0-2.5); Eosinophils # (Auto) 0.0 Thou/mm3 (0.0-0.5); Eosinophils % (Auto) 0 % (0-10); Hematocrit 21.2 % (36.0-46.0); Hemoglobin 7.1 g/dL (12.0-16.0); Immature Granulocytes Auto 1.75 Thou/mm3 (0.00-0.00); Lymphocytes # (Auto) 1.9 Thou/mm3 (1.0-4.8); Lymphocytes % (Auto) 13 % (10-50); Mean Corpuscular HGB Conc 33.5 g/dl (31.0-37.0); Mean Corpuscular Hemoglobin 30.3 pg (25.0-35.0); Mean Corpuscular Volume 91 fL (80-100); Monocytes # (Auto) 1.0 Thou/mm3 (0.0-0.8); Monocytes % (Auto) 6 % (0-12); Neutrophils # (Auto) 10.2 Thou/mm3 (1.8-7.7); Neutrophils % (Auto) 69 % (37-80); Nucleated Red Blood Cell # 0.60 Thou/mm3 (0.00-0.00); Nucleated Red Blood Cell % 4 /100 WBC (0); Platelet Count 96 Thou/mm3 (140-440); RDW Standard Deviation 48.7 fL (36.4-46.3); Red Blood Count 2.34 Miln/mm3 (4.00-5.20); White Blood Count 14.8 Thou/mm3 (3.6-11.0)
[2025-01-28 06:48] LABS: Alanine Aminotransferase 413 U/L (10-49); Albumin, Serum 3.3 gm/dL (3.5-5.0); Albumin/Globulin Ratio 1.3 (1.2-2.2); Alkaline Phosphatase 435 U/L (46-116); Anion Gap 12 (7-16); Aspartate Amino Transferase 402 U/L (0-34); BUN/Creatinine Ratio 37 Ratio (12-20); Bilirubin,Total 1.1 mg/dL (0.3-1.2); Blood Urea Nitrogen 59 mg/dL (9-23); Calcium 10.5 mg/dL (8.3-10.6); Calcium (Corrected) 11.1 mg/dL (8.5-10.1); Carbon Dioxide 21.4 mMol/L (20.0-31.0); Chloride 95 mMol/L (98-107); Creatinine (Component) 1.6 mg/dL (0.6-1.3); Estimated Creatinine Clearance 39.5 mL/min (>60); Globulin 2.5 gm/dL (2.3-3.5); Glucose 209 mg/dL (74-106); Magnesium 2.6 mg/dL (1.6-2.6); Osmolality,Calculated 279 (275-295); Phosphorous 3.5 mg/dL (2.4-5.1); Potassium 4.8 mMol/L (3.4-5.1); Sodium 128 mMol/L (136-145); Total Protein 5.8 gm/dL (5.7-8.2); eGFR 39 See Note
[2025-01-28] MEDS: MIRTAZAPINE 15 MG TABLET 7.5 MG PO (08:30)
[2025-01-28] MEDS: CITRIC ACID/SODIUM CITR 15 ML UDC (BICITRA) 30 ML PO ×2 (08:32→20:40)
[2025-01-28] MEDS: SODIUM CHLORIDE 1 GM TABLET PO (08:32)
[2025-01-28] MEDS: cefTRIAXone/D5w 1gm IV premix 1 GM/50 ML BAG IV (08:32)
[2025-01-28] MEDS: ALBUMIN HUMAN-KJDA 25% IVPB 25 GM/100 ML BTL IV ×2 (09:05→20:40)
--- NOTE | 2025-01-28 09:49 | PC.SS ---
Addendum entered by Yoon Domingo 01/28/25 12:22: SS was informed by Dianna from [facility] they have cancelled insurance authorization. SS has spoken to Ayaka from [facility] and they are starting insurance authorization. Addendum entered by Yoon Domingo 01/28/25 10:36: SS has sent PASRR assessment to [facility] using [facility] [employer]. Addendum entered by Yoon Domingo 01/28/25 10:30: SS was informed by Amirah from [facility] they are able to accept pt and is aware pt will be pursuing chemo and radiation therapy at d/c. SS also spoke to Sofie the sales ledger administrator from [facility] who is also aware family is unable to provide pill form for chemo therapy. Per Sofie, they are able to accept pt. Amirah from [facility] also did an onsite evaluation. Dtr and son are now requesting for pt to d/c to [facility]. SS also called Mckenzie from [facility] who states she is still waiting call back from [facility] (dtr and son are aware). SS has called Dianna from [facility] who states they are insurance authorization but will cancel authorization. Per Amirah from [facility], Ayaka from [facility] is starting insurance authorization. Original Note: SS met with pt, son, and dtr to confirm pt will be perusing chemo and radiation therapy once she is d/c from hospital. SS has spoken to to Dianna from [facility] who explained pt they can accept pt if pt receives pill form for chemo therapy and family will have to provide the pill. Son and dtr state they are unable to provide pill form. SS also spoke to Mckenzie from [facility] and Angelika from [facility] who both explained patient's health insurance is under skilled need for pt to get stronger and then dc/ and start chemo therapy (son and dtr are aware and are not agreeable to wait for pt to start chemo therapy after being d/c from SNF). Angelika from [facility] states they are unable to accept unless family can provide pill form for chemo therapy. Per son and dtr, if SNF is not an option pt will return home. SS provided dtr with [employer] [facility] [employer] and [facility] form. Pt will require O2, hospital bed, wheelchair, and commode to return home. Pt will also require transportation upon dc.
--- NOTE | 2025-01-28 13:31 | ESPR_ITS ---
Documentation for date of: 01/28/25 Subjective Subjective Interval history: 49-year-old female with past medical history T2DM and left invasive ductal carcinoma (Onco Dr. Koo) status post lumpectomy 2022 and radiation 2023 presents with bilateral lower extremity swelling shortness of breath x 3 days. Patient reported bilateral leg pain x 6 days, ibuprofen did not help. Reported abdominal pain in mid epigastric x 2 days, bloated in nature. Reported shortness of breath x 3 days. Reported all symptoms are new to her. Last time visited oncologist was late November with Dr. Cabello. Next appointment in February. Since last radiation that was 2023, no scan after. Denied history of smoking, alcohol, drug use. Nephrology consulted for DARA. 01/25/25: Patient seen and examined at bedside. Patient denies any bodily pain. Reports shortness of breath and lower extremity swelling started 3 days prior and very suddenly. In November, external breast lesions initially started as a small scab and went to PCP and was prescribed fluconazole and levofloxacin, completed course. Son at bedside reports very poor p.o. intake for the past month. Denies fever/chills, urinary symptoms or recent illness. Nephrology consulted for DARA, leading differential diagnosis includes progression of cancer, prerenal iso poor intake vs RTA. 01/26/25: Patient seen examined at bedside. Endorses anxiety and shortness of breath due to stomach fullness. States very poor appetite and when attempting to drink currently feels nauseous. Daughter at bedside emotional regarding current situation, also states that Zofran does not alleviate nausea. Recommend Phenergan or Reglan as well as mirtazapine as patient does endorse anxiety with low appetite. 01/27/25: Patient seen and examined at bedside. Overnight desaturaturated and CXR shows moderate CHF with large R pleural effusion. Feels better than yesterday following afternoon lasix yesterday. Still low appetite. Daughter and son at bedside, all questions adequately answered. Patient requests to go to rehab following discharge. Recommend albumin with Lasix and start sodium bicarb 650 mg QD. 01/28/25: Patient seen and examined at bedside with daughter Miesha and son Favian. Patient reports feeling very fatigued still with little appetite, although did eat cereal today. Per radiation oncology, does not need PCP referral and would like to see patient on Saturday for radiation. Cr increased to 1.6 from 1.3 with decrease in GFR as well following albumin and lasix yesterday. Will not give additional lasix or fluids at this time. Start albumin 25 g BID. Due to worsening R breast lesion, recommend surgical consult for possible mastectomy if patient is a candidate. Exam Vital Signs Temp Pulse Resp BP Pulse Ox O2 Del Method O2 Flow Rate 98.3 F 112 H 24 H 107/60 92 L Nasal Cannula 3 01/28/25 11:32 01/28/25 11:32 01/28/25 11:32 01/28/25 11:32 01/28/25 11:32 01/28/25 11:32 01/28/25 07:16 Narrative Exam GENERAL: AOx3, no acute distress, fatigued HEENT: mucous membranes moist, bilateral sclera anicteric CARDIOVASCULAR: regular rhythm, tachycardic, S1/S2 present, no murmurs appreciated PULMONARY: mild improved bilateral crackles L>R, mildly decreased breath sounds R>L ABDOMINAL: soft, non-tender, non-distended, no rebound/guarding, bowel sounds present EXTREMITIES: trace non pitting edema bilaterally SKIN: warm and dry, R breast lesion worsening and larger, covered with allevyn dressings NEURO: CN II-XII grossly intact, no focal deficits, alert, following commands Objective Labs 01/29/25 05:20 01/29/25 05:20 Labs: Laboratory Results - last 24 hr 01/28/25 01/28/25 05:00 09:15 WBC 14.8 H RBC 2.34 L Hgb 7.1 L Hct 21.2 L* MCV 91 MCH 30.3 MCHC 33.5 RDW Std Deviation 48.7 H Plt Count 96 L Neut % (Auto) 69 Lymph % (Auto) 13 Mingo % (Auto) 6 Eos % (Auto) 0 Baso % (Auto) 0 Neut # (Auto) 10.2 H Lymph # (Auto) 1.9 Mingo # (Auto) 1.0 H Eos # (Auto) 0.0 Baso # (Auto) 0.0 Immature Gran # (Auto) 1.75 H Absolute Nucleated RBC 0.60 H Immature Gran % 12 H Nucleated RBC % 4 H Sodium 128 L Potassium 4.8 Chloride 95 L Carbon Dioxide 21.4 Anion Gap 12 BUN 59 H Creatinine 1.6 H Estim Creat Clear Calc 39.5 L eGFR 39 L BUN/Creatinine Ratio 37 H Glucose 209 H Calculated Osmolality 279 Calcium 10.5 Corrected Calcium 11.1 H Phosphorus 3.5 Magnesium 2.6 Total Bilirubin 1.1 AST 402 H ALT 413 H Alkaline Phosphatase 435 H Total Protein 5.8 Albumin 3.3 L Globulin 2.5 Albumin/Globulin Ratio 1.3 Blood Type O Negative Antibody Screen NEGATIVE Blood Bank Wristband ID Yes Quality Measures Quality Measures VTE prophylaxis Assessment & Plan Assessment Current Active Medications: Generic Name Dose Route Start Last Admin Trade Name Freq PRN Reason Stop Dose Admin Acetaminophen 650 mg 01/28/25 02:47 01/28/25 02:57 Acetaminophen 325 Mg Tablet PO 02/27/25 02:46 650 mg Q6HR PRN Administration pain 7-10 Albuterol/Ipratropium 3 ml 01/26/25 18:23 Albuterol/Ipratropium (Duoneb) Rt Nori 3 Ml Nebu INH 02/25/25 18:22 Q2HR PRN SHORTNESS OF BREATH OR WHEEZE Citric Acid/Sodium Citrate 30 ml 01/25/25 12:30 01/28/25 08:32 Citric Acid/Sodium Citr 15 Ml Udc (Bicitra) PO 02/24/25 12:29 30 ml BID [place] Administration Guaifenesin/Codeine Phosphate 5 ml 01/26/25 16:39 Guaifenesin/Cod Syrup 5 Ml Udc PO 02/25/25 16:38 Q4HR PRN COUGH Protocol Ceftriaxone Sodium/Dextrose 1 gm in 50 mls @ 100 mls/hr 01/22/25 19:00 01/28/25 08:32 Rocephin/D5w 1gm Iv Premix IV 01/29/25 18:59 100 mls/hr QDAY [place] Administration Albumin Human 25 gm in 100 mls @ 100 mls/hr 01/28/25 09:00 01/28/25 09:05 Albuminex 25% Ivpb IV 01/31/25 08:59 100 mls/hr BID [place] Administration Mirtazapine 7.5 mg 01/27/25 10:30 01/28/25 08:30 Mirtazapine 15 Mg Tablet PO 02/26/25 10:29 7.5 mg QDAY [place] Administration Ondansetron HCl 4 mg 01/22/25 15:46 01/25/25 18:49 Ondansetron Inj 2 Mg/Ml Inj 2 Ml IVP 02/21/25 15:45 4 mg Q6H PRN Administration NAUSEA OR VOMITING Protocol Sennosides 1 tab 01/22/25 15:46 Senna Tablet PO 02/21/25 15:45 QDAY PRN constipation Protocol Sodium Chloride 1 gm 01/26/25 20:30 01/28/25 08:32 Sodium Chloride 1 Gm Tablet PO 02/25/25 20:29 1 gm DAILY [place] Administration Plan Kym Zapata 49F pmx significant for NIDDM2 and left invasive ductal carcinoma (Onco Dr. Koo) s/p lumpectomy 2022 and radiation 2023 presents with bilateral lower extremity swelling shortness of breath x 3 days, found to have mets to R breast, liver, adrenal glands, and brain (cerebellar and cerebral) with R hilar and abdominal lymphadenopathy. #DARA, likely prerenal, improved #UTI, E.coli pansensitive On admission Cr 1.1, baseline 0.9-1.1, however on 01/24, Cr 1.4 and increased to 1.6. During this admission, mets discovered to R breast, liver, adrenal glands, and brain (cerebellar and cerebral) with R hilar and abdominal lymphadenopathy. Renal US bilateral renal cortical thinning, mild renal scarring, no hydronephrosis FeNa 0.2% and FeUr 29.7%, both indicating prerenal etiology Ddx: decreased PO intake iso cancer with mets with contrast nephropathy and/or administration of lasix vs hepatorenal Plan: - No IVF or lasix as of now due to pulmonary edema with fluids and DARA worsening with Lasix, suggestive of hepatorenal - Albumin 25 g BID - Strict I&Os, purewick catheter - CTM Cr - Avoid nephrotoxic medications and renally dose. Avoid contrast. - Ceftriaxone (01/22- #Hyponatremia #Hyperkalemia #Hypercalcemia On admission Na 129, when on 11/2024 Na 143. No hx of hyponatremia. On 01/25, K 5.2. 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 Anand. Marlena Simmons, DO PGY-1 Internal Medicine Attending Provider Attestation/Addendum patient seen and examined with resident physician Dr. Simmons. Note reviewed, agree with findings and recommendations. Patient currently seen in medical floor. Daughter on the phone is the freelance court stenographer. son at bedside. Unfortunately lady with metastatic infiltrating breast cancer with mets to the brain. Patient used to follow-up with Dr. Cabello in the outpatient setting. On anastrozole. November 2024 CA 15-3 levels have started to elevate. Patient now with necrotizing cancer of the right breast and metastatic disease to the entire body. 01/28/2025 DARA-multifactorial (contrast nephropathy/decreased p.o. intake/hypoalbuminemia. Creatinine tad worse today. Patient with a significant elevation in liver enzymes. Renal ultrasound showed no hydronephrosis. Urine sodium less than 10 consistent with hypovolemic hyponatremia prerenal azotemia vs HRS strict I&O's ordered. Noted metabolic acidosis-Bicitra ordered. Hyponatremia secondary to hypovolemic hyponatremia. Added salt tablet edema probably from hypoalbuminemia/third spacing. Complaining of significant nausea vomiting, decreased p.o. intake. Zofran not helping. Consider Reglan/promethazine versus mirtazapine for appetite stimulant. Time spent more than 20 minutes regarding plan of care and disease management. Spoke to daughter /son at length. Explained poor prognosis. They are waiting for a radiation therapy through Dr. Koo. Explained that radiation may not help with her metastatic breast cancer. They seem to understand. Patient has 5 kids.
--- NOTE | 2025-01-28 14:03 | ESPR_ITS ---
<Statement entered by Pawan Paetl MD - 01/29/25 14:57> Patient seen and examined at bedside. I discussed and supervised with the internet sales consultant physician who took care of this patient. I personally saw and examined the patient. I agree with most of the assessment and plan. Plan of care discussed with attending Dr. Cook. Pawan Patel MD PGY-2 Documentation for date of: 01/28/25 Subjective Subjective Interval history: Patient was seen and examined at bedside. No acute events took place overnight. Patient reports increased heaviness and weakness of the right forearm. Although there is no SOB, daughter in the room no decreased chest rise with inspiration, and overall increased burden of breathing. Satting well on 3 L via NC. Spoke to Dr. Koo who replied that the patient will get radiation to her brain as early as next week, and that he is working on her insurance for authorization. Patient did not seek PCP and can follow-up directly with Dr. Koo who is also going to make arrangements for follow-up chemotherapy either at the cancer center or by referral to a heme-onc. Exam Vital Signs Temp Pulse Resp BP Pulse Ox O2 Del Method O2 Flow Rate 98.3 F 112 H 24 H 107/60 92 L Nasal Cannula 3 01/28/25 11:32 01/28/25 11:32 01/28/25 11:32 01/28/25 11:32 01/28/25 11:32 01/28/25 11:32 01/28/25 07:16 Narrative Exam General: AOx3, Bulgarian speaking, no acute distress, able to speak full sentences, on 1L NC HEENT: NC/AT, mucous membranes moist, bilateral sclera anicteric Cardiovascular: sinus tachycardia, S1/S2 present, no murmurs appreciated Pulmonary: Present course crackles over Rt lower lobe zone. no rales/rhonchi/wheezes. Abdominal: soft, no tenderness to palpation, distended, no rebound/guarding, normal bowel sounds present Musculoskeletal: normal ROM, present nonpitting edema of BLE 2+ b/l. Skin: diffuse poorly demarcated erythema, warmth, swelling, and purulence throughout the skin of the right breast both anterior and inferior aspects, marked purulence especially on the medial aspect. Breast tender to palpation. Lesions covered with dressings. Neuro: CN II-XII intact, no focal deficits Objective Labs 01/30/25 05:00 01/30/25 05:00 Labs: Laboratory Results - last 24 hr 01/28/25 01/28/25 05:00 09:15 WBC 14.8 H RBC 2.34 L Hgb 7.1 L Hct 21.2 L* MCV 91 MCH 30.3 MCHC 33.5 RDW Std Deviation 48.7 H Plt Count 96 L Neut % (Auto) 69 Lymph % (Auto) 13 Bacon % (Auto) 6 Eos % (Auto) 0 Baso % (Auto) 0 Neut # (Auto) 10.2 H Lymph # (Auto) 1.9 Bacon # (Auto) 1.0 H Eos # (Auto) 0.0 Baso # (Auto) 0.0 Immature Gran # (Auto) 1.75 H Absolute Nucleated RBC 0.60 H Immature Gran % 12 H Nucleated RBC % 4 H Sodium 128 L Potassium 4.8 Chloride 95 L Carbon Dioxide 21.4 Anion Gap 12 BUN 59 H Creatinine 1.6 H Estim Creat Clear Calc 39.5 L eGFR 39 L BUN/Creatinine Ratio 37 H Glucose 209 H Calculated Osmolality 279 Calcium 10.5 Corrected Calcium 11.1 H Phosphorus 3.5 Magnesium 2.6 Total Bilirubin 1.1 AST 402 H ALT 413 H Alkaline Phosphatase 435 H Total Protein 5.8 Albumin 3.3 L Globulin 2.5 Albumin/Globulin Ratio 1.3 Blood Type O Negative Antibody Screen NEGATIVE Blood Bank Wristband ID Yes Quality Measures Quality Measures VTE prophylaxis Assessment & Plan Assessment Current Active Medications: Generic Name Dose Route Start Last Admin Trade Name Freq PRN Reason Stop Dose Admin Acetaminophen 650 mg 01/28/25 02:47 01/28/25 02:57 Acetaminophen 325 Mg Tablet PO 02/27/25 02:46 650 mg Q6HR PRN Administration pain 7-10 Albuterol/Ipratropium 3 ml 01/26/25 18:23 Albuterol/Ipratropium (Duoneb) Rt Nori 3 Ml Nebu INH 02/25/25 18:22 Q2HR PRN SHORTNESS OF BREATH OR WHEEZE Citric Acid/Sodium Citrate 30 ml 01/25/25 12:30 01/28/25 08:32 Citric Acid/Sodium Citr 15 Ml Udc (Bicitra) PO 02/24/25 12:29 30 ml BID [place] Administration Guaifenesin/Codeine Phosphate 5 ml 01/26/25 16:39 Guaifenesin/Cod Syrup 5 Ml Udc PO 02/25/25 16:38 Q4HR PRN COUGH Protocol Ceftriaxone Sodium/Dextrose 1 gm in 50 mls @ 100 mls/hr 01/22/25 19:00 01/28/25 08:32 Rocephin/D5w 1gm Iv Premix IV 01/29/25 18:59 100 mls/hr QDAY [place] Administration Albumin Human 25 gm in 100 mls @ 100 mls/hr 01/28/25 09:00 01/28/25 09:05 Albuminex 25% Ivpb IV 01/31/25 08:59 100 mls/hr BID [place] Administration Mirtazapine 7.5 mg 01/27/25 10:30 01/28/25 08:30 Mirtazapine 15 Mg Tablet PO 02/26/25 10:29 7.5 mg QDAY [place] Administration Ondansetron HCl 4 mg 01/22/25 15:46 01/25/25 18:49 Ondansetron Inj 2 Mg/Ml Inj 2 Ml IVP 02/21/25 15:45 4 mg Q6H PRN Administration NAUSEA OR VOMITING Protocol Sennosides 1 tab 01/22/25 15:46 Senna Tablet PO 02/21/25 15:45 QDAY PRN constipation Protocol Sodium Chloride 1 gm 01/26/25 20:30 01/28/25 08:32 Sodium Chloride 1 Gm Tablet PO 02/25/25 20:29 1 gm DAILY [place] Administration Plan 49-year-old female with past medical history T2DM and left invasive ductal carcinoma (Onco Dr. Koo) status post lumpectomy 2022 and radiation 2023 presented on 01/22/2025 with bilateral lower extremity swelling shortness of breath x 3 days. Plan #DARA, likely prerenal #Hyponatremia #Hyperkalemia Etiology includes contrast toxicity, dehydration, or Lasix use. Ddx tumor lysis syndrome: rapid progression of cancer. On admission Cr 1.1, baseline 0.9-1.1, however on 01/24, Cr 1.4 and uptrending. by 01/27, Cr had been trending down (1.6, 1.4, 1.3), before it trended back up 1.6 again on 01/28. +NS maintanence fluid 1L Plan: - Nephrology, Drs Kika and Troy consulted, appreciate recs - NaCl PO 1g daily. - Strict I&O's, purewick catheter - Hold on Lasix or fluids to protect the kidneys but also prevent pulmonary edema - Will start sodium bicarb 650mg QD upon discharge - CTM Cr, and electrolytes - Bicitra BID - Avoid nephrotoxic medications and renally dose # Bilateral pitting edema # Large right pleural effusion # Congestive heart failure # ?CAP 3+ bilateral pitting edema with acute onset shortness of breath. No history of cardiac diseases. History of breast radiation. DDx: cardiac-related CHF vs. hepatocardiac syndrome vs. CHF-induced pleural effusion vs. metastasis to lungs Patient had presented with cough, possibility of CAP cannot be ruled out. - Ultrasound study of the lungs did not reveal significant effusions to warrant thoracentesis. - US of BLE negative for deep vein thrombosis in either lower extremity. - Echo 01/22 showed RVSP 56mmHg LVEF 60-65% with mild to moderate tricuspid valve regurgitation, mildly enlarged left atrium. 01/26/25: CXR revealed worsened pleural effusions from previous imaging, more extensive involvement of the Rt lung, but also new edema in the Lt. 01/27/25: Showed improvement in pulmonary edema. - IVP Lasix 40mg x1 after albumen 25g Plan: - Thoracentesis unnecessary as there is but minimal right pleural fluid. ? 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 Oncologist, Dr. Cabello. CT showed metastasis to right breast, liver, lymph nodes, adrenal gland, brain. Initial labs are largely deranged: WBC 16.4 hemoglobin 8.9 PT 13.3 sodium 129 AST 341 ALT 422 alk phos 378 lactate dehydrogenase 2178. Patient was unaware of metastasis. Reported last appointment with Dr. Cabello was late November, next appointment is in February. Patient was not aware of any metastasis previously. Reported no imaging after radiation in 2023. Patient reported significant orthopnea requiring multiple pillows. Abdominal pain and bloatedness likely due to metastasis to liver. Echo 01/22 showed RVSP 56mmHg LVEF 60-65% with mild to moderate tricuspid valve regurgitation, mildly enlarged left atrium. ? US Rt breast revealed irregular mass with indistinct margins 5 to 6 o'clock position 4.9 x4.0 x4.0cm Lt breast. ? 01/25: positive bone scan: mild increased uptake over the manibrium, anterior central neck, Lt anterior ribs, and posterior Rt ribs, as well as both shoulders. Plan: - Rad/onc, Dr Koo, consulted, appreciate recs - Patient will complete radiologic treatment outpatient after immediate f/u with Dr Koo upon hospital discharge. Sessions will likely start in about a week and can be done as outpatient. - Dr Koo kindly volunteered to seek a center/specialist who will provide chmotherapy for the patient. - Surgical management of Rt breast inflammatory change will need to come after chemotherapy so that malignent lesions are at a resectible size/proportions. #Loss of appetite #Depression Patient with sad, teary affect. She has been eating minimally. -started mirtazapine 7.5mg Qday Health Maintenance: Code status: Full DVT prophylaxis: Heparin GI prophylaxis: None Diet: Low sodium diet Melendez: No Lines: PIV Supplemental O2: None Disposition: Med Tele This case was discussed with my attending physician, Dr. Cook, and senior resident, Dr Patel. Claus Arteaga, PGY I Attending Provider Attestation/Addendum I have seen and examined the patient. I was physically present for the forrest portions of the services provided including history, physical exam, diagnosis, treatment plans and orders. I agree with assessment and plan of care as documented by residents. Patient seen and examined at bedside this morning. No acute overnight events. Continues to be tachycardic, saturating well on 3 L nasal cannula, blood pressure and temperature have been stable. Continues to appear tired but comfortable at bedside. Patient's WBC count has remained stable but hemoglobin consistently decreasing, 7.1 today, we will transfuse with 1 unit of PRBC. Chemistry panel showed slightly improving sodium levels, 128 today but worsening BUN and creatinine 59/1.6. Liver function remain high but stable. Discussed with oncology, patient is planned for brain radiation next week and is awaiting insurance authorization. Also discussed with nephrology, stated patient might have fluctuation in her kidney function, can be monitored outpatient. We will hold off on Lasix or IV fluid today and monitor her kidney function and respiratory status closely. Had a long discussion with family at bedside, discussed in detail about patient's current condition, prognosis, management plans. Informed them after discussion with nephrology and oncology, if patient remains stable, plan to discharge to SNF after authorization, and patient to follow-up outpatient oncology for brain radiation therapy, family showed understanding and agrees with the plan. Even though this this note was carefully revised there may still be minor errors in rivet heater gas due to voice recognition software. Meng Cook MD
--- NOTE | 2025-01-28 15:41 | PC.NURSE ---
Family at bedside is upset in regards to patients care. Notified Dr. Cook and team to come speak to patient. Doctor's at bedside speaking with family.
--- NOTE | 2025-01-28 17:51 | PC.NURSE ---
Bladder scan done at 1700 due to no urine out put in purwic. Pt this am had x2 unmeasured void. Bladder scan has only 7ml in bladder, checked x3. 7ml. Will continue to monitor.--JA
[2025-01-28] MEDS: guaiFENesin/COD SYRUP 5 ML UDC PO (20:48)
[2025-01-29] VITALS (13 sets, daily range): BP systolic 106–153; BP diastolic 57–78; PULSE 108–118; RESP 16–28; TEMP 35.7–36.3; O2SAT 88–99
[2025-01-29 01:22] LABS: Hematocrit 23.1 % (36.0-46.0)
[2025-01-29 01:23] LABS: Hemoglobin 7.7 g/dL (12.0-16.0)
[2025-01-29 06:47] LABS: Basophils # (Auto) 0.1 Thou/mm3 (0.0-0.2); Basophils % (Auto) 1 % (0-2.5); Eosinophils # (Auto) 0.0 Thou/mm3 (0.0-0.5); Eosinophils % (Auto) 0 % (0-10); Hematocrit 23.2 % (36.0-46.0); Immature Granulocytes Auto 1.62 Thou/mm3 (0.00-0.00); Lymphocytes # (Auto) 1.6 Thou/mm3 (1.0-4.8); Lymphocytes % (Auto) 11 % (10-50); Mean Corpuscular HGB Conc 33.6 g/dl (31.0-37.0); Mean Corpuscular Hemoglobin 29.7 pg (25.0-35.0); Mean Corpuscular Volume 88 fL (80-100); Monocytes # (Auto) 0.8 Thou/mm3 (0.0-0.8); Monocytes % (Auto) 6 % (0-12); Neutrophils # (Auto) 10.8 Thou/mm3 (1.8-7.7); Neutrophils % (Auto) 72 % (37-80); Nucleated Red Blood Cell # 0.94 Thou/mm3 (0.00-0.00); Nucleated Red Blood Cell % 6 /100 WBC (0); Platelet Count 88 Thou/mm3 (140-440); RDW Standard Deviation 48.8 fL (36.4-46.3); Red Blood Count 2.63 Miln/mm3 (4.00-5.20); White Blood Count 15.0 Thou/mm3 (3.6-11.0)
[2025-01-29 06:48] LABS: Hemoglobin 7.8 g/dL (12.0-16.0)
[2025-01-29 06:49] LABS: Alanine Aminotransferase 374 U/L (10-49); Albumin, Serum 3.7 gm/dL (3.5-5.0); Albumin/Globulin Ratio 1.4 (1.2-2.2); Alkaline Phosphatase 451 U/L (46-116); Anion Gap 13 (7-16); Aspartate Amino Transferase 384 U/L (0-34); BUN/Creatinine Ratio 34 Ratio (12-20); Bilirubin,Total 1.4 mg/dL (0.3-1.2); Blood Urea Nitrogen 64 mg/dL (9-23); Calcium 11.3 mg/dL (8.3-10.6); Calcium (Corrected) 11.5 mg/dL (8.5-10.1); Carbon Dioxide 20.3 mMol/L (20.0-31.0); Chloride 93 mMol/L (98-107); Creatinine (Component) 1.9 mg/dL (0.6-1.3); Estimated Creatinine Clearance 33.2 mL/min (>60); Globulin 2.6 gm/dL (2.3-3.5); Glucose 249 mg/dL (74-106); Magnesium 2.8 mg/dL (1.6-2.6); Osmolality,Calculated 279 (275-295); Phosphorous 4.4 mg/dL (2.4-5.1); Potassium 5.1 mMol/L (3.4-5.1); Sodium 126 mMol/L (136-145); Total Protein 6.3 gm/dL (5.7-8.2); eGFR 32 See Note
[2025-01-29] MEDS: CITRIC ACID/SODIUM CITR 15 ML UDC (BICITRA) 30 ML PO (08:57)
[2025-01-29] MEDS: cefTRIAXone/D5w 1gm IV premix 1 GM/50 ML BAG IV (08:57)
[2025-01-29] MEDS: MIRTAZAPINE 15 MG TABLET 7.5 MG PO (08:58)
[2025-01-29] MEDS: ALBUMIN HUMAN-KJDA 25% IVPB 25 GM/100 ML BTL IV ×2 (08:58→21:03)
[2025-01-29] MEDS: SODIUM CHLORIDE 1 GM TABLET PO (08:58)
--- NOTE | 2025-01-29 09:03 | PC.SS ---
Follow up note: SS spoke to Ayaka from [facility] who states insurance authorization has been obtained. Pt is possible d/c for today.
--- NOTE | 2025-01-29 10:17 | PD.RESPRO ---
Documentation for date of: 01/29/25 Subjective Subjective Interval history: 49-year-old female with past medical history T2DM and left invasive ductal carcinoma (Onco Dr. Koo) status post lumpectomy 2022 and radiation 2023 presents with bilateral lower extremity swelling shortness of breath x 3 days. Patient reported bilateral leg pain x 6 days, ibuprofen did not help. Reported abdominal pain in mid epigastric x 2 days, bloated in nature. Reported shortness of breath x 3 days. Reported all symptoms are new to her. Last time visited oncologist was late November with Dr. Cabello. Next appointment in February. Since last radiation that was 2023, no scan after. Denied history of smoking, alcohol, drug use. Nephrology consulted for DARA. 01/25/25: Patient seen and examined at bedside. Patient denies any bodily pain. Reports shortness of breath and lower extremity swelling started 3 days prior and very suddenly. In November, external breast lesions initially started as a small scab and went to PCP and was prescribed fluconazole and levofloxacin, completed course. Son at bedside reports very poor p.o. intake for the past month. Denies fever/chills, urinary symptoms or recent illness. Nephrology consulted for DARA, leading differential diagnosis includes progression of cancer, prerenal iso poor intake vs RTA. 01/26/25: Patient seen examined at bedside. Endorses anxiety and shortness of breath due to stomach fullness. States very poor appetite and when attempting to drink currently feels nauseous. Daughter at bedside emotional regarding current situation, also states that Zofran does not alleviate nausea. Recommend Phenergan or Reglan as well as mirtazapine as patient does endorse anxiety with low appetite. 01/27/25: Patient seen and examined at bedside. Overnight desaturaturated and CXR shows moderate CHF with large R pleural effusion. Feels better than yesterday following afternoon lasix yesterday. Still low appetite. Daughter and son at bedside, all questions adequately answered. Patient requests to go to rehab following discharge. Recommend albumin with Lasix and start sodium bicarb 650 mg QD. 01/28/25: Patient seen and examined at bedside with daughter Miesha and son Favian. Patient reports feeling very fatigued still with little appetite, although did eat cereal today. Per radiation oncology, does not need PCP referral and would like to see patient on Saturday for radiation. Cr increased to 1.6 from 1.3 with decrease in GFR as well following albumin and lasix yesterday. Will not give additional lasix or fluids at this time. Start albumin 25 g BID. Due to worsening R breast lesion, recommend surgical consult for possible mastectomy if patient is a candidate. 01/29/25: Patient seen examined at bedside with daughter. Reports extreme fatigue with persistent low appetite. Creatinine continues to increase at 1.9 with GFR decreased to 32. Per primary team, start 500 cc of NS at 75 cc/hr. avoid Lasix administration as patient is clinically dry however edematous due to third spacing. Continue albumin 25 g twice daily. Exam Vital Signs Temp Pulse Resp BP Pulse Ox O2 Del Method O2 Flow Rate 96.9 F 110 H 18 106/65 94 L Nasal Cannula 4 01/29/25 07:59 01/29/25 07:59 01/29/25 07:59 01/29/25 07:59 01/29/25 07:59 01/29/25 07:59 01/29/25 07:59 Narrative Exam GENERAL: AOx3, no acute distress, fatigued HEENT: mucous membranes dry, bilateral sclera anicteric CARDIOVASCULAR: regular rhythm, tachycardic, S1/S2 present, no murmurs appreciated PULMONARY: mild improved bilateral crackles L>R, mildly decreased breath sounds R>L, increased work of breathing ABDOMINAL: soft, non-tender, non-distended, no rebound/guarding, bowel sounds present EXTREMITIES: non pitting edema BLE, 2+ pitting edema at hips SKIN: warm and dry, R breast lesion worsening and larger, covered with allevyn dressings NEURO: CN II-XII grossly intact, no focal deficits, alert, following commands Objective Labs 01/29/25 05:20 01/29/25 05:20 Labs: Laboratory Results - last 24 hr 01/28/25 01/29/25 01/29/25 09:15 00:36 05:20 WBC 15.0 H RBC 2.63 L Hgb 7.7 L 7.8 L Hct 23.1 L 23.2 L MCV 88 MCH 29.7 MCHC 33.6 RDW Std Deviation 48.8 H Plt Count 88 L Neut % (Auto) 72 Lymph % (Auto) 11 [place] % (Auto) 6 Eos % (Auto) 0 Baso % (Auto) 1 Neut # (Auto) 10.8 H Lymph # (Auto) 1.6 [place] # (Auto) 0.8 Eos # (Auto) 0.0 Baso # (Auto) 0.1 Immature Gran # (Auto) 1.62 H Absolute Nucleated RBC 0.94 H Immature Gran % 11 H Nucleated RBC % 6 H Sodium 126 L Potassium 5.1 Chloride 93 L Carbon Dioxide 20.3 Anion Gap 13 BUN 64 H Creatinine 1.9 H Estim Creat Clear Calc 33.2 L eGFR 32 L BUN/Creatinine Ratio 34 H Glucose 249 H Calculated Osmolality 279 Calcium 11.3 H Corrected Calcium 11.5 H Phosphorus 4.4 Magnesium 2.8 H Total Bilirubin 1.4 H AST 384 H ALT 374 H Alkaline Phosphatase 451 H Total Protein 6.3 Albumin 3.7 Globulin 2.6 Albumin/Globulin Ratio 1.4 Blood Type O Negative Antibody Screen NEGATIVE Crossmatch See Detail Blood Bank Wristband ID Yes Quality Measures Quality Measures VTE prophylaxis Assessment & Plan Assessment Current Active Medications: Generic Name Dose Route Start Last Admin Trade Name Freq PRN Reason Stop Dose Admin Acetaminophen 650 mg 01/28/25 02:47 01/28/25 02:57 Acetaminophen 325 Mg Tablet PO 02/27/25 02:46 650 mg Q6HR PRN Administration pain 7-10 Albuterol/Ipratropium 3 ml 01/26/25 18:23 Albuterol/Ipratropium (Duoneb) Rt Nori 3 Ml Nebu INH 02/25/25 18:22 Q2HR PRN SHORTNESS OF BREATH OR WHEEZE Citric Acid/Sodium Citrate 30 ml 01/25/25 12:30 01/29/25 08:57 Citric Acid/Sodium Citr 15 Ml Udc (Bicitra) PO 02/24/25 12:29 30 ml BID [place] Administration Guaifenesin/Codeine Phosphate 5 ml 01/26/25 16:39 01/28/25 20:48 Guaifenesin/Cod Syrup 5 Ml Udc PO 02/25/25 16:38 5 ml Q4HR PRN Administration COUGH Protocol Ceftriaxone Sodium/Dextrose 1 gm in 50 mls @ 100 mls/hr 01/22/25 19:00 01/29/25 08:57 Rocephin/D5w 1gm Iv Premix IV 01/29/25 18:59 100 mls/hr QDAY [place] Administration Albumin Human 25 gm in 100 mls @ 100 mls/hr 01/28/25 09:00 01/29/25 08:58 Albuminex 25% Ivpb IV 01/31/25 08:59 100 mls/hr BID [place] Administration Sodium Chloride 1,000 mls @ 75 mls/hr 01/29/25 08:40 Ns IV 01/29/25 15:19 .[id number] [place] Mirtazapine 7.5 mg 01/27/25 10:30 01/29/25 08:58 Mirtazapine 15 Mg Tablet PO 02/26/25 10:29 7.5 mg QDAY [place] Administration Ondansetron HCl 4 mg 01/22/25 15:46 01/25/25 18:49 Ondansetron Inj 2 Mg/Ml Inj 2 Ml IVP 02/21/25 15:45 4 mg Q6H PRN Administration NAUSEA OR VOMITING Protocol Sennosides 1 tab 01/22/25 15:46 Senna Tablet PO 02/21/25 15:45 QDAY PRN constipation Protocol Sodium Chloride 1 gm 01/26/25 20:30 01/29/25 08:58 Sodium Chloride 1 Gm Tablet PO 02/25/25 20:29 1 gm DAILY [place] Administration Plan Kym Zapata 49F pmx significant for NIDDM2 and left invasive ductal carcinoma (Onco Dr. Koo) s/p lumpectomy 2022 and radiation 2023 presents with bilateral lower extremity swelling shortness of breath x 3 days, found to have mets to R breast, liver, adrenal glands, and brain (cerebellar and cerebral) with R hilar and abdominal lymphadenopathy. #DARA, likely prerenal, improved #UTI, E.coli pansensitive On admission Cr 1.1, baseline 0.9-1.1, however on 01/24, Cr 1.4 and increased to 1.6. During this admission, mets discovered to R breast, liver, adrenal glands, and brain (cerebellar and cerebral) with R hilar and abdominal lymphadenopathy. Renal US bilateral renal cortical thinning, mild renal scarring, no hydronephrosis FeNa 0.2% and FeUr 29.7%, both indicating prerenal etiology Ddx: decreased PO intake iso cancer with mets with contrast nephropathy and/or administration of lasix vs hepatorenal Plan: - Caution with fluids due to pulmonary edema, suggestive of hepatorenal - Albumin 25 g BID - Strict I&Os, purewick catheter - CTM Cr - Avoid nephrotoxic medications and renally dose. Avoid contrast. - Ceftriaxone (01/22- #Hyponatremia #Hyperkalemia #Hypercalcemia On admission Na 129, when on 11/2024 Na 143. No hx of hyponatremia. On 01/25, K 5.2. 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 Anand. Marlena Simmons, PGY-1 Internal Medicine Attending Provider Attestation/Addendum patient seen and examined with resident physician Dr. Simmons. Note reviewed, agree with findings and recommendations. Patient currently seen in medical floor. Daughter on the phone is the compounding and finishing supervisor. son at bedside. Unfortunately lady with metastatic infiltrating breast cancer with mets to the brain. Patient used to follow-up with Dr. Cabello in the outpatient setting. On anastrozole. November 2024 CA 15-3 levels have started to elevate. Patient now with necrotizing cancer of the right breast and metastatic disease to the entire body. 01/29/2025 DARA-multifactorial (contrast nephropathy/decreased p.o. intake/hypoalbuminemia. Creatinine trending up-question going towards hepatorenal syndrome versus ATN. Will repeat another urinalysis and urine sodium. Patient with a significant elevation in liver enzymes. Renal ultrasound showed no hydronephrosis. Noted metabolic acidosis-Bicitra ordered. Hyponatremia secondary to hypovolemic hyponatremia. Added salt tablet Hypercalcemia from immobilization edema probably from hypoalbuminemia/third spacing. Complaining of significant nausea vomiting, decreased p.o. intake. Zofran not helping. Time spent more than 30 minutes regarding plan of care and disease management. Spoke to daughter /son at length. Explained poor prognosis. They are waiting for a radiation therapy through Dr. Koo. Explained that radiation may not help with her metastatic breast cancer. They seem to understand. Patient has [address] Acuna will give gentle IV fluids today as patient's p.o. intake seems to be very low.
[2025-01-29] MEDS: SODIUM CHLORIDE 0.9% 500 ML 500 ML 75 ML IV (10:51)
--- NOTE | 2025-01-29 12:30 | CHAP ---
Patient was visited by the Spiritual Care Volunteer who prayed for them.
[2025-01-29] MEDS: ALBUTEROL/IPRATROPIUM (Duoneb) RT SOL 3 ML NEBU INH ×2 (13:10→18:55)
[2025-01-29] MEDS: HYDROmorphone INJ 2 MG/ML VIAL 0.5 MG IVP (15:23)
--- NOTE | 2025-01-29 15:24 | ESPR_ITS ---
<Statement entered by Pawan Patel MD - 01/29/25 18:55> Patient seen and examined at bedside. I discussed and supervised with the internet marketing analyst physician who took care of this patient. I personally saw and examined the patient. I agree with most of the assessment and plan. Patient continued to deteriorate. Increased respiratory rate, work of breathing, placed on HFNC. Labs continue to worsen, urine output decreasedd, patient increasingly lethargic. Engaged in shared decision making with family, patient made DNR. Will plan for goals of care conversation tomorrow at 1100. Plan of care discussed with attending Dr. Acuna. Pawan Patel MD PGY-2 Documentation for date of: 01/29/25 Subjective Subjective Interval history: Patient was seen and examined at bedside. No acute events took place overnight. Patient noted to be under increased burden for breathing, abdominal breathing, and requiring 4L via NC to sat 94%. Her sleep was disturbed by a feet of coughing overnight, and difficulty getting comfortable in her bed. Spoke to Dr. Koo who replied that the patient will get radiation therapy to her brain metastesis at 10am on Saturday next week. Dr. Koo is also going to make arrangements for follow-up chemotherapy either at the cancer center or by referral to a heme-onc. Exam Vital Signs Temp Pulse Resp BP Pulse Ox O2 Del Method O2 Flow Rate 97.0 F 110 H 24 H 108/60 96 Nasal Cannula 30 01/29/25 11:45 01/29/25 14:15 01/29/25 14:15 01/29/25 11:45 01/29/25 14:15 01/29/25 11:45 01/29/25 14:15 FiO2 50 01/29/25 14:15 Narrative Exam General: AOx3, Slovenian speaking, no acute distress, able to speak full sentences, on 1L NC HEENT: NC/AT, mucous membranes moist, bilateral sclera anicteric Cardiovascular: sinus tachycardia, S1/S2 present, no murmurs appreciated Pulmonary: Present course crackles over Rt lower lobe zone. no rales/rhonchi/wheezes. Abdominal: soft, no tenderness to palpation, distended, no rebound/guarding, normal bowel sounds present Musculoskeletal: normal ROM, present nonpitting edema of BLE 2+ b/l. Skin: diffuse poorly demarcated erythema, warmth, swelling, and purulence throughout the skin of the right breast both anterior and inferior aspects, marked purulence especially on the medial aspect. Breast tender to palpation. Lesions covered with dressings. Neuro: CN II-XII intact, no focal deficits Objective Labs 01/29/25 05:20 01/29/25 16:24 Labs: Laboratory Results - last 24 hr 01/28/25 01/29/25 01/29/25 09:15 00:36 05:20 WBC 15.0 H RBC 2.63 L Hgb 7.7 L 7.8 L Hct 23.1 L 23.2 L MCV 88 MCH 29.7 MCHC 33.6 RDW Std Deviation 48.8 H Plt Count 88 L Neut % (Auto) 72 Lymph % (Auto) 11 Blair % (Auto) 6 Eos % (Auto) 0 Baso % (Auto) 1 Neut # (Auto) 10.8 H Lymph # (Auto) 1.6 Blair # (Auto) 0.8 Eos # (Auto) 0.0 Baso # (Auto) 0.1 Immature Gran # (Auto) 1.62 H Absolute Nucleated RBC 0.94 H Immature Gran % 11 H Nucleated RBC % 6 H Sodium 126 L Potassium 5.1 Chloride 93 L Carbon Dioxide 20.3 Anion Gap 13 BUN 64 H Creatinine 1.9 H Estim Creat Clear Calc 33.2 L eGFR 32 L BUN/Creatinine Ratio 34 H Glucose 249 H Calculated Osmolality 279 Calcium 11.3 H Corrected Calcium 11.5 H Phosphorus 4.4 Magnesium 2.8 H Total Bilirubin 1.4 H AST 384 H ALT 374 H Alkaline Phosphatase 451 H Total Protein 6.3 Albumin 3.7 Globulin 2.6 Albumin/Globulin Ratio 1.4 Blood Type O Negative Antibody Screen NEGATIVE Crossmatch See Detail Blood Bank Wristband ID Yes Quality Measures Quality Measures VTE prophylaxis Assessment & Plan Assessment Current Active Medications: Generic Name Dose Route Start Last Admin Trade Name Freq PRN Reason Stop Dose Admin Acetaminophen 650 mg 01/28/25 02:47 01/28/25 02:57 Acetaminophen 325 Mg Tablet PO 02/27/25 02:46 650 mg Q6HR PRN Administration pain 7-10 Albuterol/Ipratropium 3 ml 01/26/25 18:23 Albuterol/Ipratropium (Duoneb) Rt Nori 3 Ml Nebu INH 02/25/25 18:22 Q2HR PRN SHORTNESS OF BREATH OR WHEEZE Albuterol/Ipratropium 3 ml 01/29/25 13:00 01/29/25 13:10 Albuterol/Ipratropium (Duoneb) Rt Nori 3 Ml Nebu INH 02/28/25 12:59 3 ml Q6HRRT [place] Administration Citric Acid/Sodium Citrate 30 ml 01/25/25 12:30 01/29/25 08:57 Citric Acid/Sodium Citr 15 Ml Udc (Bicitra) PO 02/24/25 12:29 30 ml BID [place] Administration Guaifenesin/Codeine Phosphate 5 ml 01/26/25 16:39 01/28/25 20:48 Guaifenesin/Cod Syrup 5 Ml Udc PO 02/25/25 16:38 5 ml Q4HR PRN Administration COUGH Protocol Ceftriaxone Sodium/Dextrose 1 gm in 50 mls @ 100 mls/hr 01/22/25 19:00 01/29/25 08:57 Rocephin/D5w 1gm Iv Premix IV 01/29/25 18:59 100 mls/hr QDAY [place] Administration Albumin Human 25 gm in 100 mls @ 100 mls/hr 01/28/25 09:00 01/29/25 08:58 Albuminex 25% Ivpb IV 01/31/25 08:59 100 mls/hr BID [place] Administration Sodium Chloride 500 mls @ 75 mls/hr 01/29/25 11:00 01/29/25 10:51 Ns IV 01/29/25 17:24 75 mls/hr .[id number] [place] Administration Ondansetron HCl 4 mg 01/22/25 15:46 01/25/25 18:49 Ondansetron Inj 2 Mg/Ml Inj 2 Ml IVP 02/21/25 15:45 4 mg Q6H PRN Administration NAUSEA OR VOMITING Protocol Sennosides 1 tab 01/22/25 15:46 Senna Tablet PO 02/21/25 15:45 QDAY PRN constipation Protocol Sodium Chloride 1 gm 01/26/25 20:30 01/29/25 08:58 Sodium Chloride 1 Gm Tablet PO 02/25/25 20:29 1 gm DAILY [place] Administration Plan 49-year-old female with past medical history T2DM and left invasive ductal carcinoma (Onco Dr. Koo) status post lumpectomy 2022 and radiation 2023 presented on 01/22/2025 with bilateral lower extremity swelling shortness of breath x 3 days. 01/28 Patient's respiratory function deteriorating with increased work of breathing and rising supplemental O2 requirements (4L). Kidney function also worsening with Cr and BUN that keep trending up on daily labs. BUN/Cr =34, consistent with prerenal azotemia in the setting of poor oral intake; challenged with 0.5L of NS. Patient had been noted to be depressed, having a teary affect, sleeping most of her time, less conversant, with poort appetite. She was started mirtazapine 7.5mg Qday on 01/26 for benefits to her mood and appetite. It stopped on 01/29 as patient was becoming increasingly more lethargic. Patient was also started on insulin lispro sliding scale, as she was diabetic and her morning glucose rising progressively on morning labs. Plan #DARA, likely prerenal #Hyponatremia #Hyperkalemia Etiology includes contrast toxicity, dehydration, or Lasix use. Ddx tumor lysis syndrome: rapid progression of cancer. On admission Cr 1.1, baseline 0.9-1.1, however on 01/24, Cr 1.4 and uptrending. by 01/27, Cr had been trending down (1.6, 1.4, 1.3), before it trended back up 1.6 again on 01/28. Cr worsened from 1.6 to 1.9, BUN 64/59. BUN/Cr =34. +NS maintanence fluid 1L Plan: - We will challangee the kidneys with .5L of NS in the light of pre-renal azotemia as patient has had poor oral intake. - Albumen IV 25mg bid - Nephrology, Drs Kika and Troy consulted, appreciate recs - NaCl PO 1g daily. - Strict I&O's, purewick catheter - Hold on Lasix or fluids to protect the kidneys but also prevent pulmonary edema - Will start sodium bicarb 650mg QD upon discharge - CTM Cr, and electrolytes - Bicitra BID - Avoid nephrotoxic medications and renally dose #Acute hypoxemic respiratory failure # Bilateral pitting edema # Large right pleural effusion # Congestive heart failure # ?CAP 3+ bilateral pitting edema with acute onset shortness of breath. No history of cardiac diseases. History of breast radiation. DDx: cardiac-related CHF vs. hepatocardiac syndrome vs. CHF-induced pleural effusion vs. metastasis to lungs Patient had presented with cough, possibility of CAP cannot be ruled out. - Ultrasound study of the lungs did not reveal significant effusions to warrant thoracentesis. - US of BLE negative for deep vein thrombosis in either lower extremity. - Echo 01/22 showed RVSP 56mmHg LVEF 60-65% with mild to moderate tricuspid valve regurgitation, mildly enlarged left atrium. 01/26/25: CXR revealed worsened pleural effusions from previous imaging, more extensive involvement of the Rt lung, but also new edema in the Lt. 01/27/25: Showed improvement in pulmonary edema. - IVP Lasix 40mg x1 after albumen 25g 01/29: patient in respiratory distress, noted to be abdominal breathing, requiring 4L via NC for adequate saturation. Plan: - DuoNeb breathing treatment Q6hRT - Thoracentesis unnecessary as there is but minimal right pleural fluid. ? 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 Oncologist, Dr. Cabello. CT showed metastasis to right breast, liver, lymph nodes, adrenal gland, brain. Initial labs are largely deranged: WBC 16.4 hemoglobin 8.9 PT 13.3 sodium 129 AST 341 ALT 422 alk phos 378 lactate dehydrogenase 2178. Patient was unaware of metastasis. Reported last appointment with Dr. Cabello was late November, next appointment is in February. Patient was not aware of any metastasis previously. Reported no imaging after radiation in 2023. Patient reported significant orthopnea requiring multiple pillows. Abdominal pain and bloatedness likely due to metastasis to liver. Echo 01/22 showed RVSP 56mmHg LVEF 60-65% with mild to moderate tricuspid valve regurgitation, mildly enlarged left atrium. ? US Rt breast revealed irregular mass with indistinct margins 5 to 6 o'clock position 4.9 x4.0 x4.0cm Lt breast. ? 01/25: positive bone scan: mild increased uptake over the manibrium, anterior central neck, Lt anterior ribs, and posterior Rt ribs, as well as both shoulders. Plan: - Rad/onc, Dr Koo, consulted, appreciate recs - Patient will complete radiologic treatment outpatient after immediate f/u with Dr Koo upon hospital discharge. Sessions will likely start in about a week and can be done as outpatient. - Dr Koo kindly volunteered to seek a center/specialist who will provide chmotherapy for the patient. - Surgical management of Rt breast inflammatory change will need to come after chemotherapy so that malignent lesions are at a resectible size/proportions. #Loss of appetite #Depression Patient with sad, teary affect. She has been eating minimally. started mirtazapine 7.5mg Qday on 01/26, and stopped on 01/29 as patient was becoming increasingly more lethargic. #Normocytic Anemia s/p transfusion 1u pRBC on 01/28. Post-transfusion H&H 7.7 #Hyperglycemia insulin sliding scale step 1 Health Maintenance: Code status: Full DVT prophylaxis: Heparin GI prophylaxis: None Diet: Low sodium diet Melendez: No Lines: PIV Supplemental O2: None Disposition: Med Tele This case was discussed with my attending physician, Dr. Acuna, and senior resident, Dr Patel. Claus Arteaga DO PGY I Attending Provider Attestation/Addendum Izzy Delgado DO, attest that I was physically present for the forrest portions of the service and evaluated the patient with the resident and I reviewed and discussed the case with the resident and agree with the resident's findings and plans of care as documented above Patient seen and evaluated this AM. Daughter at bedside. Patient was laying right lateral recumbent and states she is feeling well. However, she appears more labored with breathing. No wheezing noted, but diminished breath sounds noted in right lung field. Patient states that she does not have any appetite. She does endorse having abdominal pain, mainly in the epigastric region, that causes her to have early satiety. CT scans were reviewed and patient has significant hepatomegaly and mets that have also caused elevated hemidiaphragm decreasing her lung volumes as well. Patient is noted to have edema in 1+ pitting edema in all four extremities. However, she is noted to have worsening renal function. Will give gentle IV fluids of 500mL at 75cc/hr. Encouraged patient to drink ensure if she can tolerate. She has also been receiving IV albumin. Case was discussed at length with Dr. Koo, Rad/onc, who has set up for whole brain radiation at 10am on Saturday. However, patient is not ready for discharge given worsening hyponatremia, renal function and uptrending LFTs. Discussed with daughter that patient could be readmitted if patient is discharged prematurely. They are hopeful for her to undergo further cancer treatment upon discharge to SNF. Explained to daughter that her current status is not optimized to undergo further outpatient treatment at this time. Will continue to monitor volume status closely, along with renal function. She is currently requiring 4.5L/NC. Will need to also titrate supplemental O2 to 2- 3L/NC.
--- NOTE | 2025-01-29 15:30 | PC.SS ---
Pt has down graded to telemetry and is on high flow O2.
[2025-01-29] MEDS: INSULIN LISPRO (AdmeLOG) 1 UNIT/0.01 ML UNIT SC (17:35)
[2025-01-29 17:42] LABS: Albumin, Serum 3.8 gm/dL (3.5-5.0); Anion Gap 16 (7-16); BUN/Creatinine Ratio 35 Ratio (12-20); Blood Urea Nitrogen 78 mg/dL (9-23); Calcium 10.6 mg/dL (8.3-10.6); Calcium (Corrected) 10.8 mg/dL (8.5-10.1); Carbon Dioxide 19.2 mMol/L (20.0-31.0); Chloride 92 mMol/L (98-107); Creatinine (Component) 2.2 mg/dL (0.6-1.3); Estimated Creatinine Clearance 28.7 mL/min (>60); Glucose 269 mg/dL (74-106); Osmolality,Calculated 287 (275-295); Phosphorous 4.6 mg/dL (2.4-5.1); Potassium 5.4 mMol/L (3.4-5.1); Sodium 127 mMol/L (136-145); eGFR 26 See Note
--- NOTE | 2025-01-29 18:36 | PD.RESEVENT ---
Documentation for date of: 01/29/25 Event Note Event Note: Discussed patient's current status and prognosis with patient's son and daughter. Patient was present, but lethargic, poorly responsive. Updated family on worsening labs and mental status. Also discussed rapid decline over past 24 hours, and poor prognosis. Son and daughter expressed understanding. Engaged in shared decision making regarding patient's CODE STATUS, specifically likely outcomes if patient were to code. Son and daughter elected to make patient DNR/DNI, while continuing all other treatment. Patient's CODE STATUS was changed. Conversation held in presence of RN and Dr. Kumar, PGY-2. Pawan Patel MD PGY-2
--- NOTE | 2025-01-29 19:23 | PD.RESEVENT ---
Documentation for date of: 01/29/25 Event Note Event Note: Family asked to speak with doctor. After previous conversation, CODE STATUS was changed to DNR/DNI. The family continued further discussions amongst themselves, and elected to have patient made FULL CODE again. Family expressed understanding regarding patient's prognosis. Patient CODE STATUS was made FULL CODE again. Conversation held in presence of Dr. Stover and Dr. Kumar. Pawan Patel MD PGY-2
[2025-01-29] MEDS: guaiFENesin/COD SYRUP 5 ML UDC PO (21:11)
[2025-01-30] VITALS (87 sets, daily range): BP systolic 87–131; BP diastolic 37–98; PULSE 108–120; RESP 15–36; TEMP 36.3–36.7; O2SAT 87–100
[2025-01-30] MEDS: ALBUTEROL/IPRATROPIUM (Duoneb) RT SOL 3 ML NEBU INH ×2 (00:33→05:50)
[2025-01-30] MEDS: guaiFENesin/COD SYRUP 5 ML UDC PO (01:36)
--- NOTE | 2025-01-30 05:20 | PD.RESCONSUL ---
HPI Data of Consult Requesting Physician: Meng Cook MD Admitting Provider: Pablo Askew DO Attending Provider: Meng Cook MD Primary Care Provider: Brian Castano Consult Narrative Reason for consult: Hemorrhagic shock History of present illness: Ms. Zapata is a 49-year-old female with past medical history significant for T2DM and left invasive ductal carcinoma (Onco Dr. Koo) status post lumpectomy 2022 and radiation 2023 presented with bilateral lower extremity swelling shortness of breath x 3 days on 01/22/25. Associated symptoms include mid epigastric abd pain x 2 days. Of note, he last visit to the oncologist was in November. Patient hasn't had any recent scans since completion of radiation. Of note, patient was unaware of metastasis. Patient was not aware of any metastasis previously. ED vital signs significant for tachycardia and tachypneia. ED labs significant for WBC 16.4, Hgb 8.9, PT 13.3, sodium 129 AST 341 ALT 422 alk phos 378 lactate dehydrogenase 2178 positive UA. CXR showed mild CHF, and large right pleural effusion. CTAP showed metastasis to right breast, liver, lymph nodes, adrenal glands. Echo 01/22 showed RVSP 56mmHg LVEF 60-65% with mild to moderate tricuspid valve regurgitation, mildly enlarged left atrium. CXR on 01/26 revealed worsened pleural effusions from previous imaging, more extensive involvement of the Rt lung, but also new edema in the Lt.Throughout hospital stay, patient has been requiring more O2 and worsening renal function. Patient also has been more depressed and was started on Mirtazapine, however, on 01/29 patient started becoming more lethargic after seen requiring more O2, from NC to now HFNC and worsening renal function. Patient's code status initially was changed from FULL CODE to DNR/DNI and 1 hour later changed back to DNR/DNI d/t not all family members agreeing. Later, patient expressed wanting full treatment. Patient seen and examined at bedside. Patient denies any pain, headache, nausea, vomiting at this time. ICU was consulted for further management of patient's hemorrhagic shock, most likely requiring massive transfusion in the setting of acute rectal bleed. cc:: cc: Meng Cook MD Exam Vital Signs Temp Pulse Resp BP Pulse Ox O2 Del Method O2 Flow Rate 97.6 F 115 H 26 H 109/63 96 High Flow Nasal Cannula 35 01/30/25 05:00 01/30/25 05:00 01/30/25 05:00 01/30/25 05:00 01/30/25 05:00 01/30/25 00:00 01/30/25 04:57 FiO2 65 01/30/25 04:57 Narrative Exam General: Lethargic, but responsive to questions, oriented to place and name, in mild respiratory distress on HFNC HEENT: NC/AT, mucous membranes moist, bilateral sclera anicteric Cardiovascular: sinus tachycardia, S1/S2 present, no murmurs appreciated Pulmonary: Present course crackles over Rt lower lobe zone. no rales/rhonchi/wheezes. Abdominal: soft, no tenderness to palpation, distended, no rebound/guarding, normal bowel sounds present; patient noted to have a huge bloody stools seen on her chucks. Musculoskeletal: normal ROM, present nonpitting edema of BLE 2+ b/l. Skin: diffuse poorly demarcated erythema, warmth, swelling, and purulence throughout the skin of the right breast both anterior and inferior aspects, marked purulence especially on the medial aspect. Breast tender to palpation. Lesions covered with dressings. Bruise noted on L medial pannus, but no tenderness noted. Neuro: CN II-XII intact, no focal deficits Results Labs 01/30/25 05:00 01/30/25 05:00 Labs: Short CBC 01/29/25 Range/Units 05:20 WBC 15.0 H (3.6-11.0) Thou/mm3 Hgb 7.8 L (12.0-16.0) g/dL Hct 23.2 L (36.0-46.0) % Plt Count 88 L (140-440) Thou/mm3 BMP 01/29/25 01/29/25 05:20 16:24 Sodium 126 L 127 L Potassium 5.1 5.4 H Chloride 93 L 92 L Carbon Dioxide 20.3 19.2 L BUN 64 H 78 H Creatinine 1.9 H 2.2 H Glucose 249 H 269 H Calcium 11.3 H 10.6 Liver Function 01/29/25 01/29/25 Range/Units 05:20 16:24 Total Bilirubin 1.4 H (0.3-1.2) mg/dL AST 384 H (0-34) U/L ALT 374 H (10-49) U/L Alkaline Phosphatase 451 H (46-116) U/L Albumin 3.7 3.8 (3.5-5.0) gm/dL Quality Measures Quality Measures VTE prophylaxis Medications Home Medications and Allergies Allergies Allergy/AdvReac Type Severity Reaction Status Date / Time No Known Allergies Allergy Verified 01/22/25 09:17 Visit Medications Acetaminophen (Acetaminophen 325 Mg Tablet) 650 mg PO Q6HR PRN PRN Reason: pain 7-10 Stop: 02/27/25 02:46 Last Admin: 01/28/25 02:57 Dose: 650 mg Albuterol/Ipratropium (Albuterol/Ipratropium (Duoneb) Rt Nori 3 Ml Nebu) 3 ml INH Q2HR PRN PRN Reason: SHORTNESS OF BREATH OR WHEEZE Stop: 02/25/25 18:22 Albuterol/Ipratropium (Albuterol/Ipratropium (Duoneb) Rt Nori 3 Ml Nebu) 3 ml INH Q6HRRT [place] Stop: 02/28/25 12:59 Last Admin: 01/30/25 00:33 Dose: 3 ml Citric Acid/Sodium Citrate (Citric Acid/Sodium Citr 15 Ml Udc (Bicitra)) 30 ml PO BID [place] Stop: 02/24/25 12:29 Last Admin: 01/29/25 21:23 Dose: Not Given Dextrose (Dextrose 50%-Water Inj 50 Ml Syringe) 25 ml IV Q15MIN PRN PRN Reason: BG 50-70 responsive npo pt Stop: 02/28/25 15:56 Dextrose (Dextrose 50%-Water Inj 50 Ml Syringe) 50 ml IV Q15MIN PRN PRN Reason: BG <50 OR BG <70 & pt unresponsive Stop: 02/28/25 15:56 Glucagon (Glucagon Inj 1 Mg Vial) 1 mg IM Q15MIN PRN PRN Reason: BG <70, and no IV access Guaifenesin/Codeine Phosphate (Guaifenesin/Cod Syrup 5 Ml Udc) 5 ml PO Q4HR PRN; Protocol PRN Reason: COUGH Stop: 02/25/25 16:38 Last Admin: 01/30/25 01:36 Dose: 5 ml Albumin Human (Albuminex 25% Ivpb) 25 gm in 100 mls @ 100 mls/hr IV BID [place] Stop: 01/31/25 08:59 Last Admin: 01/29/25 21:03 Dose: 100 mls/hr Insulin Human Lispro (Insulin Lispro (Admelog) 1 Unit/0.01 Ml Unit) 0 unit SC AC [place]; Protocol Stop: 02/28/25 16:59 Last Admin: 01/29/25 17:35 Dose: 3 unit Ondansetron HCl (Ondansetron Inj 2 Mg/Ml Inj 2 Ml) 4 mg IVP Q6H PRN; Protocol PRN Reason: NAUSEA OR VOMITING Stop: 02/21/25 15:45 Last Admin: 01/25/25 18:49 Dose: 4 mg Sennosides (Senna Tablet) 1 tab PO QDAY PRN; Protocol PRN Reason: constipation Stop: 02/21/25 15:45 Sodium Chloride (Sodium Chloride 1 Gm Tablet) 1 gm PO DAILY [place] Stop: 02/25/25 20:29 Last Admin: 01/29/25 08:58 Dose: 1 gm Discontinued Medications Hydrocodone Bitart/Acetaminophen (Hydrocodone/Apap 5/325 Tablet) 1 tab PO Q4HR PRN PRN Reason: PAIN SCALE 4-10(Mod-Sev Stop: 01/27/25 15:45 Albuterol/Ipratropium (Albuterol/Ipratropium (Duoneb) Rt Nori 3 Ml Nebu) 3 ml INH X1 ONE Stop: 01/26/25 16:44 Last Admin: 01/26/25 16:51 Dose: 3 ml Albuterol/Ipratropium (Albuterol/Ipratropium (Duoneb) Rt Nori 3 Ml Nebu) 3 ml INH X1 ONE Stop: 01/29/25 11:48 Last Admin: 01/29/25 12:53 Dose: Not Given Diphenhydramine HCl (Diphenhydramine Inj 50 Mg/Ml Vial) 25 mg IVP X1 ONE Stop: 01/30/25 02:42 Last Admin: 01/30/25 02:54 Dose: 25 mg Famotidine (Famotidine Inj 10 Mg/Ml Vial 2 Ml) 20 mg IVP X1 ONE Stop: 01/22/25 10:14 Last Admin: 01/22/25 10:55 Dose: 20 mg Furosemide (Furosemide Inj 10 Mg/Ml 4ml Vial) 40 mg IVP X1 ONE Stop: 01/22/25 10:05 Last Admin: 01/22/25 10:53 Dose: Not Given Furosemide (Furosemide 40 Mg Tablet) 40 mg PO X1 ONE Stop: 01/22/25 15:52 Last Admin: 01/22/25 16:01 Dose: 40 mg Furosemide (Furosemide Inj 10 Mg/Ml 4ml Vial) 40 mg IVP QDAY [place] Stop: 02/22/25 08:59 Last Admin: 01/23/25 08:19 Dose: Not Given Furosemide (Furosemide Inj 10 Mg/Ml 4ml Vial) 40 mg IVP X1 ONE Stop: 01/26/25 19:36 Last Admin: 01/26/25 20:56 Dose: 40 mg Furosemide (Furosemide Inj 10 Mg/Ml 4ml Vial) 40 mg IVP X1 ONE Stop: 01/27/25 08:11 Last Admin: 01/27/25 12:15 Dose: 40 mg Guaifenesin/Codeine Phosphate (Guaifenesin/Cod Syrup 5 Ml Udc) 5 ml PO X1 ONE; Protocol Stop: 01/26/25 16:40 Last Admin: 01/26/25 17:07 Dose: 5 ml Guaifenesin/Dextromethorphan (Guaifenesin/Dm Tablet) 1 each PO BID PRN PRN Reason: COUGH Stop: 02/21/25 18:40 Last Admin: 01/26/25 15:43 Dose: 1 each Guaifenesin/Dextromethorphan (Guaifenesin/Dm Tablet) 1 each PO X1 ONE Stop: 01/23/25 04:16 Last Admin: 01/23/25 04:29 Dose: 1 each Heparin Sodium (Porcine) (Heparin Sod Inj 5000 Unit/Ml Vial) 5,000 unit SC Q8HR [place] Stop: 02/05/25 21:59 Heparin Sodium (Porcine) (Heparin Sod Inj 5000 Unit/Ml Vial) 5,000 unit SC Q12HR [place] Stop: 02/05/25 20:59 Last Admin: 01/26/25 08:42 Dose: 5,000 unit Hydromorphone HCl (Hydromorphone Inj 2 Mg/Ml Vial) 0.5 mg IVP X1 ONE Stop: 01/29/25 14:54 Last Admin: 01/29/25 15:23 Dose: 0.5 mg Ceftriaxone Sodium/Dextrose (Rocephin/D5w 1gm Iv Premix) 1 gm in 50 mls @ 100 mls/hr IV QDAY [facility] Stop: 01/29/25 18:59 Last Admin: 01/29/25 08:57 Dose: 100 mls/hr Azithromycin 500 mg/ Sodium (Chloride) 250 mls @ 250 mls/hr IV QDAY@2100 [place] Stop: 01/29/25 18:50 Last Admin: 01/26/25 20:55 Dose: 250 mls/hr Sodium Chloride (Ns) 1,000 mls @ 80 mls/hr IV .[id number] [facility] Stop: 02/24/25 13:44 Last Admin: 01/26/25 04:21 Dose: 80 mls/hr Albumin Human (Albuminex 25% Ivpb) 25 gm in 100 mls @ 100 mls/hr IV X1 ONE Stop: 01/27/25 09:09 Last Admin: 01/27/25 10:28 Dose: 100 mls/hr Sodium Chloride (Ns) 1,000 mls @ 75 mls/hr IV .[id number] [facility] Stop: 01/29/25 15:19 Last Admin: 01/29/25 10:57 Dose: Not Given Sodium Chloride (Ns) 1,000 mls @ 75 mls/hr IV .[id number] [facility] Stop: 01/29/25 17:24 Last Admin: 01/29/25 10:58 Dose: Not Given Sodium Chloride (Ns) 500 mls @ 75 mls/hr IV .[id number] [facility] Stop: 01/29/25 17:24 Last Admin: 01/29/25 10:51 Dose: 75 mls/hr Ibuprofen (Ibuprofen Tab 600 Mg Tablet) 600 mg PO Q6H PRN PRN Reason: Pain Scale 1-3 (Mild or fever) Stop: 02/21/25 15:45 Lorazepam (Lorazepam 2 Mg/Ml Vial) 2 mg IVP X1 PRN PRN Reason: PRIOR TO NUCLEAR MEDICINE SCAN Last Admin: 01/25/25 14:15 Dose: 2 mg Metolazone (Metolazone 2.5 Mg Tablet) 5 mg PO X1 ONE Stop: 01/22/25 10:05 Last Admin: 01/22/25 10:53 Dose: Not Given Mirtazapine (Mirtazapine 15 Mg Tablet) 7.5 mg PO QDAY [place] Stop: 02/26/25 10:29 Last Admin: 01/29/25 08:58 Dose: 7.5 mg Mirtazapine (Mirtazapine 15 Mg Tablet) 7.5 mg PO X1 ONE Stop: 01/26/25 14:54 Last Admin: 01/26/25 15:42 Dose: 7.5 mg Pantoprazole Sodium (Pantoprazole Inj 40 Mg Vial) 80 mg IVP X1 ONE Stop: 01/30/25 04:54 Phytonadione (Phytonadione Inj 10 Mg/Ml Amp) 10 mg SC X1 ONE Stop: 01/30/25 05:13 Simethicone (Simethicone 80 Mg Chew) 80 mg PO X1 ONE Stop: 01/23/25 08:53 Last Admin: 01/23/25 09:37 Dose: 80 mg Assessment & Plan Plan Ms. Zapata is a 49-year-old female with past medical history significant for T2DM and left invasive ductal carcinoma (Onco Dr. Koo) status post lumpectomy 2022 and radiation 2023 presented with bilateral lower extremity swelling shortness of breath x 3 days on 01/22/25 and admitted for further management. ICU was consulted for further management of patient's hemorrhagic shock, most likely requiring massive transfusion in the setting of acute rectal bleed. NEURO #Acute encephalopathy DDx: Metastasis to the brain (from breast cancer) vs Medication-related lethargy (Mirtazapine) Dx: Patient has been increasingly lethargic since 01/29, possibly due to the combination of worsening illness, metastatic cancer, and medication effects (Mirtazapine). Denies headache, pain, nausea, or vomiting at this time. Rx: -Continue monitoring mental status and level of consciousness. -Discontinue Mirtazapine 7.5mg due to increasing lethargy. Treatment plan: Close monitoring for any acute changes in mental status, particularly considering the possibility of brain metastasis, electrolyte disturbances, and medication effects. CARDIO #Congestive heart failure exacerbation #Hepatocardiac syndrome DDx: secondary to liver metastasis vs right-sided heart failure from pleural effusion and tumor burden Dx: Right ventricular systolic pressure (RVSP) of 56mmHg and LVEF 60-65% from 01/22 echo suggest mild right-sided heart failure. Tricuspid valve regurgitation and mildly enlarged left atrium likely contributing to fluid buildup and symptoms. Congestive heart failure (CHF) exacerbated by bilateral pleural effusions. Rx: -Continue monitoring cardiac status with regular echo follow-up. -Strict I/O management. -Consider Lasix 40mg IV for volume overload as patient received an additional 1 L LR bolus and is currently being transfused 2 upRBC and 1 FFP. Treatment plan: Monitoring and adjusting diuretic therapy for fluid management. #Hemorrhagic shock DDx: in the setting of acute rectal bleed Dx: Patient's MAP significantly dropped and was consistently below MAP < 65. Repeat Hgb was 6 Rx: -Ordered 2 upRBC, 1FFP, and 1L LR -Vitamin K x 1 -Order repeat H&H after transfusion Treatment plan: May require massive transfusion protocol if patient continues to actively bleed or worsens PULM #Acute hypoxemic respiratory failure DDx: secondary to metastasis, b/l pleural effusion, or CHF; less likely PE d/t negative DVT Dx: Patient's O2 requirements are increasing from 4L to HFNC d/t increased work of breathing. Rx: -f/u with stat CXR today -HFNC for oxygenation (from NC to HFNC) due to increased respiratory distress. -DuoNeb Q6h for bronchodilation -Consider IV Lasix for fluid overload d/t 1 L LR bolus given today and is currently being transfused 2 upRBC and 1 FFP. Treatment plan: Continue to monitor oxygen saturation and respiratory effort. No thoracentesis performed due to minimal fluid, but ongoing pleural effusion will be monitored. Continue supportive care for hypoxemia and worsening respiratory function. GI/FEN #Active GI bleed DDx: in the setting of acute rectal bleed, most likely lower GI bleed in the setting of liver mets Dx: Bright red blood seen in patient's chucks. No active vomiting. Patient's MAP significantly dropped and was consistently below MAP < 65. Repeat Hgb was 6 Rx: -Ordered 2 upRBC, 1FFP, and 1L LR -Vitamin K x 1 -Order repeat H&H after transfusion Treatment plan: May require massive transfusion protocol if patient continues to actively bleed or worsens RENAL #DARA #Electrolyte imbalance DDx: likely prerenal due to dehydration and poor oral intake and hypovolemia from acute blood loss vs tumor lysis syndrome (due to rapid tumor progression) Dx: Prerenal azotemia with worsening Cr from 1.1 to 2.6, and BUN 101, suggesting poor renal perfusion likely secondary to dehydration. Rx: -Gave 1L LR challenge -Monitor UO and Bicitra BID for renal protection. Treatment Review: F/u with daily labs HEME/ONC #Acute blood loss anemia in the setting of hemolysis secondary to metastatic disease Dx: Normocytic anemia with hemoglobin 8.9; patient received 1 unit of pRBCs on 01/28, post-transfusion H&H 7.7. Repeat H&H when rapid was called was 6. Rx: Continue monitoring hemoglobin and transfuse as needed. 2urPBC, 1FFP and platelets ordered, consult GI Treatment plan: f/u with H&H, continue to monitor worsening signs of anemia, goals of care with family #Metastasis from invasive ductal carcinoma to liver, lungs, lymph nodes, adrenal glands, and brain Dx:Invasive ductal carcinoma, with metastasis to the right breast, liver, lymph nodes, adrenal glands, and brain confirmed on CT. Positive bone scan showing metastasis to multiple sites (e.g., ribs, shoulders, neck). Rx: Rad/Onc (Dr. Koo) consulted for further oncologic management and will f/u outpatient with radiation therapy. Consideration for chemotherapy after radiation for potential resection of right breast inflammatory changes. Supportive care and goals of care to readdress current situation Treatment Plan: ENDO #Hyperglycemia due to stress DDx:Insulin resistance due to metastatic cancer Dx: Managed with insuling lispro sliding scale Rx: Sliding scale insulin, check finger stick, and consider giving SC Lantus Treatment plan: Continue to monitor glucose levels and adjust insulin dosing as needed. ID No active issues MSK No active issues PSYCH #Depression Dx: Depression secondary to terminal illness vs Acute stress disorder d/t chronic illness Diagnosis:Depression, with a sad, teary affect and minimal oral intake. Rx: Mirtazapine 7.5mg Qday started on 01/26 but discontinued on 01/29 due to increased lethargy. Treatment Review: Evaluate for further psychiatric support if mood worsens. ICU Health Maintenance DVT prophylaxis: Heparin SC held since 01/26 Diet: NPO Melendez: Lines: Peripherals Vent: none CODE STATUS: FULL Reason of hospitalization: Patient is in ICU for management of hemorrhagic shock due to acute blood loss anemia. Patient may need further escalation of care including intubation and possible pressor support. Patient's care and plan discussed with my attending, Dr. Aviva Murry MD, PGY 3 Attending Provider Attestation/Addendum After examination of the patient and review of the clinical data I feel that this patient needs admission to the hospital for further treatment/evaluation. TOTAL CC TIME: 60 MIN TOTAL TIME: 60 Minutes of direct medical management and planning of care. I Dean Chicas MD, attest that I was physically present for forrest portions of evaluation, and examined patient, labs and imagings and plan of care were discussed with IM residents team, and I agree with the findings and plans documented above.
[2025-01-30 05:32] LABS: Basophils # (Auto) 0.0 Thou/mm3 (0.0-0.2); Basophils % (Auto) 0 % (0-2.5); Eosinophils # (Auto) 0.0 Thou/mm3 (0.0-0.5); Eosinophils % (Auto) 0 % (0-10); Immature Granulocytes Auto 1.78 Thou/mm3 (0.00-0.00); Lymphocytes # (Auto) 2.4 Thou/mm3 (1.0-4.8); Lymphocytes % (Auto) 15 % (10-50); Mean Corpuscular HGB Conc 32.8 g/dl (31.0-37.0); Mean Corpuscular Hemoglobin 29.6 pg (25.0-35.0); Mean Corpuscular Volume 90 fL (80-100); Monocytes # (Auto) 0.9 Thou/mm3 (0.0-0.8); Monocytes % (Auto) 6 % (0-12); Neutrophils # (Auto) 10.9 Thou/mm3 (1.8-7.7); Neutrophils % (Auto) 68 % (37-80); Nucleated Red Blood Cell # 1.10 Thou/mm3 (0.00-0.00); Nucleated Red Blood Cell % 7 /100 WBC (0); Platelet Count 74 Thou/mm3 (140-440); RDW Standard Deviation 51.4 fL (36.4-46.3); Red Blood Count 2.03 Miln/mm3 (4.00-5.20); White Blood Count 16.0 Thou/mm3 (3.6-11.0)
[2025-01-30] MEDS: RINGERS LACTATED 1000 ML 1,000 ML 999 ML IV (05:32)
[2025-01-30 05:35] LABS: Hematocrit 18.3 % (36.0-46.0); Hemoglobin 6.0 g/dL (12.0-16.0)
[2025-01-30] MEDS: PHYTONADIONE INJ 10 MG/ML AMP SC (05:37)
--- NOTE | 2025-01-30 05:37 | PC.NURSE ---
at 0446 RR called for pt new on set of gi bleed-pt transferred to ICU for closer observation.
[2025-01-30 05:54] LABS: Partial Thromboplastin Time 35.0 Seconds (22.0-36.0)
--- NOTE | 2025-01-30 05:56 | EVENTNT_ITS ---
Documentation for date of: 01/30/25 Event Note Event Note: Room: 272 Time: Around 5 AM Reason for Call: Significant GI bleed Patient presentation: 49-year-old female who has history of breast cancer with widespread Metastasis who had a rapid response due to rectal bleeding. On my arrival patient looks more paler and lethargic than on previous examinations earlier during the assistant shift supervisor with significant rectal bleeding and hematochezia noted along with active bleed. Vitals were 98/70, HR 120, saturating 100% on high flow nasal cannula. Given acute change in clinical status patient will be transferred to the ICU. Spoke to the daughter in regards to patient's clinical status and continued deterioration spoke in regards to CODE STATUS daughter will speak to the rest of the family and will call with the decision of the goals of care meeting with the day team in the morning. For now we will remain as a full code. New orders: 2 units PRBCs, 2 FFP, 2 platelets, pantoprazole 80 mg IV x 1, vitamin K, labs ordered and patient was transferred to ICU for closer monitoring. Case discussed with my attending Dr. Aviva Casanova MD PGY-2 Disclaimer: Despite multiple revisions, due to the dictation software being used, the document bellow may not be free of grammatical errors including phonetic/typographic errors. However, this does not deter from our commitment to providing health care in the patient's best interest in mind.
[2025-01-30 06:09] LABS: Alanine Aminotransferase 298 U/L (10-49); Albumin, Serum 3.5 gm/dL (3.5-5.0); Albumin/Globulin Ratio 1.8 (1.2-2.2); Alkaline Phosphatase 384 U/L (46-116); Anion Gap 17 (7-16); Aspartate Amino Transferase 343 U/L (0-34); BUN/Creatinine Ratio 39 Ratio (12-20); Bilirubin,Total 1.2 mg/dL (0.3-1.2); Blood Urea Nitrogen 101 mg/dL (9-23); Calcium 10.2 mg/dL (8.3-10.6); Calcium (Corrected) 10.6 mg/dL (8.5-10.1); Carbon Dioxide 18.3 mMol/L (20.0-31.0); Chloride 92 mMol/L (98-107); Creatinine (Component) 2.6 mg/dL (0.6-1.3); Estimated Creatinine Clearance 24.3 mL/min (>60); Globulin 2.0 gm/dL (2.3-3.5); Glucose 297 mg/dL (74-106); Magnesium 2.7 mg/dL (1.6-2.6); Osmolality,Calculated 297 (275-295); Phosphorous 5.2 mg/dL (2.4-5.1); Potassium 5.8 mMol/L (3.4-5.1); Sodium 127 mMol/L (136-145); Total Protein 5.5 gm/dL (5.7-8.2); eGFR 22 See Note
--- NOTE | 2025-01-30 06:12 | XR_ITS ---
EXAMINATION: AP chest single view TECHNIQUE: AP portable semiupright chest single view Date and time: January 30, 2025, 0643 hours, comparison January 27, 2025 INDICATIONS: Increasing shortness of breath today. FINDINGS: Prominent CHF Enlarged cardiac contour with pulmonary vascular congestion and perihilar edema Consider extensive superimposed pneumonia of both lungs Significant right pleural effusion Right subclavian Port-A-Cath tip SVC satisfactory position Left axillary surgical clips IMPRESSION: Prominent CHF Consider extensive superimposed pneumonia both lungs Significant right pleural effusion
[2025-01-30 07:31] LABS: Slide Review Platelets confirmed
[2025-01-30] MEDS: INSULIN LISPRO (AdmeLOG) 1 UNIT/0.01 ML UNIT SC (07:48)
[2025-01-30] MEDS: DEXTROSE 50%-WATER INJ 50 ML SYRINGE 25 ML IVP (08:36)
[2025-01-30] MEDS: ALBUMIN HUMAN-KJDA 25% IVPB 25 GM/100 ML BTL IV (08:37)
[2025-01-30] MEDS: PIPER/TAZO INJ 4.5 GM in SODIUM CHLORIDE 0.9% (POP) 100 ML IV (08:38)
[2025-01-30] MEDS: SODIUM CHLORIDE 1 GM TABLET PO (08:38)
[2025-01-30] MEDS: HYDROCORTISONE SOD SUCC INJ 100 MG 2 ML VIAL IV (08:38)
[2025-01-30 08:45] LABS: INR 1.4 (0.9-1.3); Prothrombin Time 14.6 Seconds (9.0-12.2)
[2025-01-30] MEDS: INSULIN HUM REGULAR 1 UNIT/0.01 ML (PER UNIT) 5 UNIT IV (08:50)
[2025-01-30 08:53] LABS: Lactate (Lactic Acid) 5.7 mMol/L (0.4-2.0)
--- NOTE | 2025-01-30 10:13 | ESPR_ITS ---
<Statement entered by Pee Kimball MD - 01/31/25 10:57> TOTAL CC TIME: 65 MIN I saw and evaluated the patient. I reviewed the resident?s note and agree with findings and plan as documented in the resident?s note. Upon my evaluation, this patient had a high probability of imminent or life- threatening deterioration due to hemorrhagic and septic shock in the setting of severe aggressive stage 4 widely metastatic breast cancer, which required my direct attention, intervention, and personal management. This time is exclusive of time spent on procedures, which are documented separately if performed. Unfortunate case. Likely septic shock with worsening pneumonia. Multisystem organ failure. Patient has worsening encephalopathy in the setting of widely metastatic breast cancer with brain metastasis, severe hepatic engorgement with metastic metastatic disease, adrenal mets. Adrenal insufficiency also remains on the differential Patient has worsening acute kidney injury as well IVC and echo performed resuscitation with PRBCs and other blood products underway Broad-spectrum antibiotics ordered Monitoring lactic acid; maintaining pressors High flow nasal cannula titrating to maintain adequate oxygenation Thorough review of past records as well as extensive review of imaging completed. 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 Prognosis is poor-I met with multiple children at bedside, imaging was reviewed. Case was discussed at length. Family felt it was most appropriate to transition to comfort care, hospice consult. <Statement entered by Osmel Bardales MD - 01/30/25 18:28> I have reviewed the note and agree with the resident's assessment & plan with exceptions as below. I have personally reviewed labs, imaging, home meds/prior records, examined the patient, formulated and discussed management plan with my attending. Patient was seen examined bedside's morning. Patient was upgraded to the ICU overnight due to shock likely in the setting of hypovolemia likely secondary to rectal bleeding. Patient's hemoglobin was 6 therefore 2 PRBCs were ordered to be transfused. Patient had worsening acidemia, DARA, and hyperkalemia, lactic acidosis, with visible signs of deterioration in the setting of metastatic breast cancer. Given the findings and patient's clinical status at this time had a goals of care discussion with patient's family and family decided that at this time they would like to proceed with patient being DNR/DNI and proceed with comfort measures and to withdraw all medical treatment at this time including blood products. They were aware that once medical treatment was withdrawn patient would likely continue to deteriorate, but would be getting medications for agitation, pain, or discomfort. At this time patient was downgraded to the medical floors on comfort measures with morphine 4 mg every 30 minutes for agitation, discomfort, and pain and 4 mg every 15 minutes for breakthrough pain. Consider increasing dose to 8 mg if still uncontrolled pain/discomfort/agitation unlikely proceed to morphine drip if necessary due to uncontrolled symptoms. Osmel Bardales PGY2 Disclaimer: Even though this this note was dictated by speech recognition and even though it was carefully revised there may still be minor errors in second class welder due to voice recognition software. Documentation for date of: 01/30/25 Subjective Subjective Interval history: History of present illness: Ms. Zapata is a 49-year-old female with past medical history significant for T2DM and left invasive ductal carcinoma (Onco Dr. Koo) status post lumpectomy 2022 and radiation 2023 presented with bilateral lower extremity swelling shortness of breath x 3 days on 01/22/25. Associated symptoms include mid epigastric abd pain x 2 days. Of note, he last visit to the oncologist was in November. Patient hasn't had any recent scans since completion of radiation. Of note, patient was unaware of metastasis. Patient was not aware of any metastasis previously. ED vital signs significant for tachycardia and tachypneia. ED labs significant for WBC 16.4, Hgb 8.9, PT 13.3, sodium 129 AST 341 ALT 422 alk phos 378 lactate dehydrogenase 2178 positive UA. CXR showed mild CHF, and large right pleural effusion. CTAP showed metastasis to right breast, liver, lymph nodes, adrenal glands. Echo 01/22 showed RVSP 56mmHg LVEF 60-65% with mild to moderate tricuspid valve regurgitation, mildly enlarged left atrium. CXR on 01/26 revealed worsened pleural effusions from previous imaging, more extensive involvement of the Rt lung, but also new edema in the Lt.Throughout hospital stay, patient has been requiring more O2 and worsening renal function. Patient also has been more depressed and was started on Mirtazapine, however, on 01/29 patient started becoming more lethargic after seen requiring more O2, from NC to now HFNC and worsening renal function. Patient's code status initially was changed from FULL CODE to DNR/DNI and 1 hour later changed back to DNR/DNI d/t not all family members agreeing. Later, patient expressed wanting full treatment. Patient seen and examined at bedside. Patient denies any pain, headache, nausea, vomiting at this time. ICU was consulted for further management of patient's hemorrhagic shock, most likely requiring massive transfusion in the setting of acute rectal bleed. Interval History: 01/30/2025: Patient was admitted overnight. Patient seen and examined at bedside. Patient noted to have increased work of breathing on high flow nasal cannula and denies any pain at this time, however appears lethargic. Given the patient's acute blood loss, the patient was transfused with 2 unit of PRBC earlier this morning. After reviewing the patient case, it was noted that the patient's prognosis is very poor given the presence of lymphangitic carcinomatosis as noted in the lower lungs with widespread metastases throughout the patient's lymph nodes and liver on the CT abdomen/pelvis taken on 01/22 as well as metastatic spread to the brain as noted on CT head taken 01/22. Given the patient's overall course and prognosis with her extensive metastatic malignancy, family members were asked to be present for goals of care discussion. It was explained to the patient's family members that due to the widespread metastases and multiorgan failure, aggressive intervention such as dialysis and chemotherapy/radiation therapy would not be tolerated and would not significantly improve the course of the patient's disease. The family members were guided through the findings on CT abdomen/pelvis and the CT head of the patient to demonstrate the extent of the damage caused by the patient's uncontrolled malignancy. After discussion amongst the family members, the patient's family members decided to pursue comfort measures for the patient and elected to pursue home hospice so that the patient may pass comfortably in familiar environment surrounded by her loved ones. The patient was downgraded to medical floors on comfort measures with morphine pushes for breakthrough pain/discomfort. Exam Vital Signs Temp Pulse Resp BP Pulse Ox O2 Del Method O2 Flow Rate 97.4 F 114 H 25 H 102/57 L 98 High Flow Nasal Cannula 35 01/30/25 10:09 01/30/25 10:09 01/30/25 10:09 01/30/25 10:09 01/30/25 10:09 01/30/25 08:00 01/30/25 10:09 FiO2 65 01/30/25 08:45 Narrative Exam General: Lethargic, but responsive to questions, oriented to place and name, in mild respiratory distress on HFNC HEENT: NC/AT, mucous membranes moist, bilateral sclera anicteric Cardiovascular: sinus tachycardia, S1/S2 present, no murmurs appreciated Pulmonary: Present course crackles over Rt lower lobe zone. no rales/rhonchi/wheezes. Abdominal: soft, no tenderness to palpation, distended, no rebound/guarding, normal bowel sounds present; patient noted to have a huge bloody stools seen on her chucks. Musculoskeletal: normal ROM, present nonpitting edema of BLE 2+ b/l. Skin: diffuse poorly demarcated erythema, warmth, swelling, and purulence throughout the skin of the right breast both anterior and inferior aspects, marked purulence especially on the medial aspect. Breast tender to palpation. Lesions covered with dressings. Bruise noted on L medial pannus, but no tenderness noted. Neuro: CN II-XII intact, no focal deficits Objective Labs 01/30/25 05:00 01/30/25 05:00 Labs: Laboratory Results - last 24 hr 01/29/25 01/30/25 01/30/25 16:24 05:00 08:23 WBC 16.0 H RBC 2.03 L Hgb 6.0 L* D Hct 18.3 L* MCV 90 MCH 29.6 MCHC 32.8 RDW Std Deviation 51.4 H Plt Count 74 L Neut % (Auto) 68 Lymph % (Auto) 15 Rowan % (Auto) 6 Eos % (Auto) 0 Baso % (Auto) 0 Neut # (Auto) 10.9 H Lymph # (Auto) 2.4 Rowan # (Auto) 0.9 H Eos # (Auto) 0.0 Baso # (Auto) 0.0 Immature Gran # (Auto) 1.78 H Absolute Nucleated RBC 1.10 H Immature Gran % 11 H Nucleated RBC % 7 H PT 14.6 H INR 1.4 H APTT 35.0 Sodium 127 L 127 L Potassium 5.4 H 5.8 H Chloride 92 L 92 L Carbon Dioxide 19.2 L 18.3 L Anion Gap 16 17 H BUN 78 H 101 H* Creatinine 2.2 H 2.6 H Estim Creat Clear Calc 28.7 L 24.3 L eGFR 26 L 22 L BUN/Creatinine Ratio 35 H 39 H Glucose 269 H 297 H Calculated Osmolality 287 297 H Lactic Acid 5.7 H* Calcium 10.6 10.2 Corrected Calcium 10.8 H 10.6 H Phosphorus 4.6 5.2 H Magnesium 2.7 H Total Bilirubin 1.2 AST 343 H ALT 298 H Alkaline Phosphatase 384 H D Total Protein 5.5 L Albumin 3.8 3.5 Globulin 2.0 L Albumin/Globulin Ratio 1.8 Misc Test Result Platelets confirmed Blood Type O Negative Antibody Screen NEGATIVE Crossmatch See Detail Blood Bank Wristband ID Yes Quality Measures Quality Measures comfort care/end of life Assessment & Plan Assessment Current Active Medications: Generic Name Dose Route Start Last Admin Trade Name Freq PRN Reason Stop Dose Admin Acetaminophen 650 mg 01/28/25 02:47 01/28/25 02:57 Acetaminophen 325 Mg Tablet PO 02/27/25 02:46 650 mg Q6HR PRN Administration pain 7-10 Albuterol/Ipratropium 3 ml 01/26/25 18:23 Albuterol/Ipratropium (Duoneb) Rt Nori 3 Ml Nebu INH 02/25/25 18:22 Q2HR PRN SHORTNESS OF BREATH OR WHEEZE Albuterol/Ipratropium 3 ml 01/29/25 13:00 01/30/25 05:50 Albuterol/Ipratropium (Duoneb) Rt Nori 3 Ml Nebu INH 02/28/25 12:59 3 ml Q6HRRT [place] Administration Citric Acid/Sodium Citrate 30 ml 01/25/25 12:30 01/30/25 08:39 Citric Acid/Sodium Citr 15 Ml Udc (Bicitra) PO 02/24/25 12:29 Not Given BID [place] Dextrose 25 ml 01/29/25 15:57 Dextrose 50%-Water Inj 50 Ml Syringe IV 02/28/25 15:56 Q15MIN PRN BG 50-70 responsive npo pt Dextrose 50 ml 01/29/25 15:57 Dextrose 50%-Water Inj 50 Ml Syringe IV 02/28/25 15:56 Q15MIN PRN BG <50 OR BG <70 & pt unresponsive Glucagon 1 mg 01/29/25 15:57 Glucagon Inj 1 Mg Vial IM Q15MIN PRN BG <70, and no IV access Hydrocortisone Sodium Succinate 50 mg 01/30/25 12:00 Hydrocortisone Sod Succ Inj 100 Mg 2 Ml Vial IV 03/01/25 11:59 Q6HR [place] Albumin Human 25 gm in 100 mls @ 100 mls/hr 01/28/25 09:00 01/30/25 08:37 Albuminex 25% Ivpb IV 01/31/25 08:59 100 mls/hr BID [place] Administration Piperacillin/Tazobactam/Dextrose 3.375 gm in 50 mls @ 12.5 mls/hr 01/30/25 21:00 Zosyn IV 02/06/25 20:59 Q12HR [place] Protocol Insulin Human Lispro 0 unit 01/29/25 17:00 01/30/25 07:48 Insulin Lispro (Admelog) 1 Unit/0.01 Ml Unit SC 02/28/25 16:59 4 unit AC [place] Administration Protocol Ondansetron HCl 4 mg 01/22/25 15:46 01/25/25 18:49 Ondansetron Inj 2 Mg/Ml Inj 2 Ml IVP 02/21/25 15:45 4 mg Q6H PRN Administration NAUSEA OR VOMITING Protocol Sennosides 1 tab 01/22/25 15:46 Senna Tablet PO 02/21/25 15:45 QDAY PRN constipation Protocol Sodium Chloride 1 gm 01/26/25 20:30 01/30/25 08:38 Sodium Chloride 1 Gm Tablet PO 02/25/25 20:29 1 gm DAILY [place] Administration Plan Ms. Zapata is a 49-year-old female with past medical history significant for T2DM and left invasive ductal carcinoma (Onco Dr. Koo) status post lumpectomy 2022 and radiation 2023 presented with bilateral lower extremity swelling shortness of breath x 3 days on 01/22/25 and admitted for further management. ICU was consulted for further management of patient's hemorrhagic shock, most likely requiring massive transfusion in the setting of acute rectal bleed. #COMFORT CARE #HOSPICE After extensive discussion with the patient's family regarding the patient's significantly poor prognosis given lymphangitic carcinomatosis in the patient's lungs, widespread metastases throughout the patient's lymphatic system, liver, and brain, and concurrent multiorgan failure, the patient's family elected to pursue comfort care and home with hospice for the patient. Plan: Downgrade to medical floors Hospice referral Comfort care ordered 01/30 Morphine 4 mg every 30 minutes as needed for distress/agitation/pain with an additional 2 mg every 15 minutes as needed for breakthrough pain/discomfort NEURO #Acute encephalopathy DDx: Metastasis to the brain (from breast cancer) vs Medication-related lethargy (Mirtazapine) Dx: Patient has been increasingly lethargic since 01/29, possibly due to the combination of worsening illness, metastatic cancer, and medication effects (Mirtazapine). Denies headache, pain, nausea, or vomiting at this time. Treatment plan: Comfort care, will keep the patient comfortable with minimal interventions other than to monitor for agitation/discomfort/pain CARDIO #Congestive heart failure exacerbation DDx: secondary to liver metastasis vs right-sided heart failure from pleural effusion and tumor burden Dx: Right ventricular systolic pressure (RVSP) of 56mmHg and LVEF 60-65% from 01/22 echo suggest mild right-sided heart failure. Tricuspid valve regurgitation and mildly enlarged left atrium likely contributing to fluid buildup and symptoms. Congestive heart failure (CHF) exacerbated by bilateral pleural effusions. Treatment plan: Comfort care, will keep the patient comfortable with minimal interventions other than to monitor for agitation/discomfort/pain #Hemorrhagic shock DDx: in the setting of acute rectal bleed Dx: Patient's MAP significantly dropped and was consistently below MAP < 65. Repeat Hgb was 6 Rx: -Ordered 2 upRBC, 1FFP, and 1L LR -Vitamin K x 1 ordered Treatment plan: Comfort care, will keep the patient comfortable with minimal interventions other than to monitor for agitation/discomfort/pain PULM #Acute hypoxemic respiratory failure #Lymphangitic carcinomatosis DDx: secondary to metastasis, b/l pleural effusion, or CHF; less likely PE d/t negative DVT Dx: Patient's O2 requirements are increasing from 4L to HFNC d/t increased work of breathing. Treatment plan: Comfort care, will keep the patient comfortable with minimal interventions other than to monitor for agitation/discomfort/pain GI/FEN #Active GI bleed DDx: in the setting of acute rectal bleed, most likely lower GI bleed in the setting of liver mets Dx: Bright red blood seen in patient's chucks. No active vomiting. Patient's MAP significantly dropped and was consistently below MAP < 65. Repeat Hgb was 6 Rx: -Ordered 2 upRBC, 1FFP, and 1L LR -Vitamin K x 1 -Order repeat H&H after transfusion Treatment plan: Comfort care, will keep the patient comfortable with minimal interventions other than to monitor for agitation/discomfort/pain RENAL #DARA #Electrolyte imbalance DDx: likely prerenal due to dehydration and poor oral intake and hypovolemia from acute blood loss vs ATN Dx: Prerenal azotemia with worsening Cr from 1.1 to 2.6, and BUN 101, suggesting poor renal perfusion likely secondary to dehydration. Rx: -Gave 1L LR challenge Treatment plan: Comfort care, will keep the patient comfortable with minimal interventions other than to monitor for agitation/discomfort/pain HEME/ONC #Acute blood loss anemia in the setting of hemolysis secondary to metastatic disease Dx: Normocytic anemia with hemoglobin 8.9; patient received 1 unit of pRBCs on 01/28, post-transfusion H&H 7.7. Repeat H&H when rapid was called was 6. Rx: Continue monitoring hemoglobin and transfuse as needed. 2urPBC, 1FFP and platelets ordered, consult GI Treatment plan: Comfort care, will keep the patient comfortable with minimal interventions other than to monitor for agitation/discomfort/pain #Metastasis from invasive ductal carcinoma to liver, lungs, lymph nodes, adrenal glands, and brain Dx:Invasive ductal carcinoma, with metastasis to the right breast, liver, lymph nodes, adrenal glands, and brain confirmed on CT. Positive bone scan showing metastasis to multiple sites (e.g., ribs, shoulders, neck). Rx: Rad/Onc (Dr. Koo) consulted for further oncologic management and will f/u outpatient with radiation therapy. Consideration for chemotherapy after radiation for potential resection of right breast inflammatory changes. Supportive care and goals of care to readdress current situation Treatment plan: Comfort care, will keep the patient comfortable with minimal interventions other than to monitor for agitation/discomfort/pain ENDO #Hyperglycemia due to stress DDx:Insulin resistance due to metastatic cancer Dx: Managed with insuling lispro sliding scale Treatment plan: Comfort care, will keep the patient comfortable with minimal interventions other than to monitor for agitation/discomfort/pain ID No active issues MSK No active issues PSYCH #Depression Dx: Depression secondary to terminal illness vs Acute stress disorder d/t chronic illness Diagnosis:Depression, with a sad, teary affect and minimal oral intake. Rx: Mirtazapine 7.5mg Qday started on 01/26 but discontinued on 01/29 due to increased lethargy. Treatment Review: Evaluate for further psychiatric support if mood worsens. ICU Health Maintenance DVT prophylaxis: Heparin SC held since 01/26 Diet: NPO Lines: Peripherals Vent: none CODE STATUS: DNR/DNI Patient's care and plan discussed with multi purpose machine operator Dr. Kimball and senior resident Dr. Alexis (PGY-2) Sonny Zaragoza, PGY-1
[2025-01-30] MEDS: MORPHINE SULF INJ 4 MG/ML VIAL 2 MG IVP (10:47)
--- NOTE | 2025-01-30 10:58 | PD.RESPRO ---
Documentation for date of: 01/30/25 Subjective Subjective Interval history: 49-year-old female with past medical history T2DM and left invasive ductal carcinoma status post lumpectomy 2022 and radiation 2023 presented on 01/22/2025 with bilateral lower extremity swelling shortness of breath x 3 days. During the hospitalization patient was found to have extensive metastasis to liver, lymph node, adrenals and brain. Patient continued to remain tachypneic during the hospitalization course, multiple trials of IV fluid and diuretics were tried, nephrology was consulted however patient continued to have increased work of breathing. Patient was upgraded to intensive care unit overnight yesterday 01/29 due to concern of hemorrhagic shock secondary to acute rectal bleeding, patient received 2 unit PRBC 1 FFP and 1 L LR overnight. Goals of care discussion held by rehab services aide team this morning with patient's family, family decided to proceed with comfort measures. Patient will be downgraded to medical floors on comfort measures. Patient seen in ICU, not in any acute distress. Exam Vital Signs Temp Pulse Resp BP Pulse Ox O2 Del Method O2 Flow Rate 97.5 F 113 H 25 H 104/49 L 99 High Flow Nasal Cannula 35 01/30/25 10:55 01/30/25 10:55 01/30/25 10:55 01/30/25 10:55 01/30/25 10:55 01/30/25 08:00 01/30/25 10:55 FiO2 65 01/30/25 08:45 Narrative Exam GENERAL: Somnolent, no acute distress, tired on supplemental oxygen CARDIOVASCULAR: Sinus tachycardia, regular rhythmg ABDOMINAL: Nondistended EXTREMITIES: Bilateral lower extremity edema NEURO: Somnolent, not in any acute distress. Limited physical exam as patient on comfort measures Objective Labs 01/30/25 05:00 01/30/25 05:00 Labs: Laboratory Results - last 24 hr 01/29/25 01/30/25 01/30/25 16:24 05:00 08:23 WBC 16.0 H RBC 2.03 L Hgb 6.0 L* D Hct 18.3 L* MCV 90 MCH 29.6 MCHC 32.8 RDW Std Deviation 51.4 H Plt Count 74 L Neut % (Auto) 68 Lymph % (Auto) 15 [place] % (Auto) 6 Eos % (Auto) 0 Baso % (Auto) 0 Neut # (Auto) 10.9 H Lymph # (Auto) 2.4 [place] # (Auto) 0.9 H Eos # (Auto) 0.0 Baso # (Auto) 0.0 Immature Gran # (Auto) 1.78 H Absolute Nucleated RBC 1.10 H Immature Gran % 11 H Nucleated RBC % 7 H PT 14.6 H INR 1.4 H APTT 35.0 Sodium 127 L 127 L Potassium 5.4 H 5.8 H Chloride 92 L 92 L Carbon Dioxide 19.2 L 18.3 L Anion Gap 16 17 H BUN 78 H 101 H* Creatinine 2.2 H 2.6 H Estim Creat Clear Calc 28.7 L 24.3 L eGFR 26 L 22 L BUN/Creatinine Ratio 35 H 39 H Glucose 269 H 297 H Calculated Osmolality 287 297 H Lactic Acid 5.7 H* Calcium 10.6 10.2 Corrected Calcium 10.8 H 10.6 H Phosphorus 4.6 5.2 H Magnesium 2.7 H Total Bilirubin 1.2 AST 343 H ALT 298 H Alkaline Phosphatase 384 H D Total Protein 5.5 L Albumin 3.8 3.5 Globulin 2.0 L Albumin/Globulin Ratio 1.8 Misc Test Result Platelets confirmed Blood Type O Negative Antibody Screen NEGATIVE Crossmatch See Detail Blood Bank Wristband ID Yes Quality Measures Quality Measures comfort care/end of life Assessment & Plan Assessment Current Active Medications: Generic Name Dose Route Start Last Admin Trade Name Freq PRN Reason Stop Dose Admin Morphine Sulfate 4 mg 01/30/25 10:46 Morphine Sulf Inj 4 Mg/Ml Vial IVP 02/04/25 10:45 Q30MIN PRN Distress, agitation, pain Morphine Sulfate 4 mg 01/30/25 10:46 Morphine Sulf Inj 4 Mg/Ml Vial IVP 02/04/25 10:45 Q15MIN PRN BREAKTHROUGH PAIN Plan Assessment and Plan: Summary: 49-year-old female with past medical history T2DM and left invasive ductal carcinoma status post lumpectomy 2022 and radiation 2023 presented on 01/22/2025 with bilateral lower extremity swelling shortness of breath x 3 days. During the hospitalization patient was found to have extensive metastasis to liver, lymph node, adrenals and brain. Patient continued to remain tachypneic during the hospitalization course, multiple trials of IV fluid and diuretics were tried, nephrology was consulted however patient continued to have increased work of breathing. Patient was upgraded to intensive care unit overnight yesterday 01/29 due to concern of hemorrhagic shock secondary to acute rectal bleeding, patient received 2 unit PRBC 1 FFP and 1 L LR overnight. Goals of care discussion held by rehab services aide team this morning with patient's family, family decided to proceed with comfort measures. Patient will be downgraded to medical floors on comfort measures. #Acute encephalopathy #Congestive heart failure exacerbation #Hepatocardiac syndrome #Hemorrhagic shock #Acute hypoxemic respiratory failure #Active GI bleed, Acute rectal bleed #DARA #Electrolyte imbalance #Acute blood loss anemia in the setting of hemolysis secondary to metastatic disease #Hyperglycemia due to stress #Depression #Hyponatremia #Hyperkalemia #Acute hypoxemic respiratory failure # Large right pleural effusion # Invasive ductal carcinoma metastasis to right breast, liver, lymph nodes, adrenal glands, brain # Large right pleural effusion # Elevated RVSP During the hospitalization patient was found to have extensive metastasis to liver, lymph node, adrenals and brain. Patient continued to remain tachypneic during the hospitalization course, multiple trials of IV fluid and diuretics were tried, nephrology was consulted however patient continued to have increased work of breathing. Patient was upgraded to intensive care unit overnight yesterday 01/29 due to concern of hemorrhagic shock secondary to acute rectal bleeding, patient received 2 unit PRBC 1 FFP and 1 L LR overnight. Goals of care discussion held by rehab services aide team this morning with patient's family, family decided to proceed with comfort measures. Patient will be downgraded to medical floors on comfort measures. - Morphine as needed - Ativan as needed for anxiety - Scopolamine patch as needed for secretions - Benadryl as needed for itching - Comfort measures as needed - Stable for discharge to SNF on Hospice - Referral to Hospice Case discussed with Attending Physician Dr. Izzy Craig MD Internal Medicine PGY-2 Disclaimer: This note was dictated by speech recognition. Minor errors in protective service specialist may be present due to voice recognition software. Attending Provider Attestation/Addendum Izzy Delgado DO, attest that I was physically present for the forrest portions of the service and evaluated the patient with the resident and I reviewed and discussed the case with the resident and agree with the resident's findings and plans of care as documented above Patient began to have rectal bleeding overnight and subsequently transferred to ICU. Patient received 2 units of pRBC, vitK and 1 unit of FFP. Family has decided to transition patient to comfort measures due to overall poor prognosis and spread of metastatic disease. Patient has been downgraded from ICU to continue comfort measures. Patient to be transferred to med/surg. Hospice consulted.
[2025-01-30] MEDS: MORPHINE SULF INJ 4 MG/ML VIAL IVP ×5 (11:17→17:45)
[2025-01-30 11:38] LABS: Reflex Lactate? Y
--- NOTE | 2025-01-30 12:04 | ESPR_ITS ---
Documentation for date of: 01/30/25 Subjective Subjective Interval history: 49-year-old female with past medical history T2DM and left invasive ductal carcinoma (Onco Dr. Koo) status post lumpectomy 2022 and radiation 2023 presents with bilateral lower extremity swelling shortness of breath x 3 days. Patient reported bilateral leg pain x 6 days, ibuprofen did not help. Reported abdominal pain in mid epigastric x 2 days, bloated in nature. Reported shortness of breath x 3 days. Reported all symptoms are new to her. Last time visited oncologist was late November with Dr. Cabello. Next appointment in February. Since last radiation that was 2023, no scan after. Denied history of smoking, alcohol, drug use. Nephrology consulted for DARA. 01/25/25: Patient seen and examined at bedside. Patient denies any bodily pain. Reports shortness of breath and lower extremity swelling started 3 days prior and very suddenly. In November, external breast lesions initially started as a small scab and went to PCP and was prescribed fluconazole and levofloxacin, completed course. Son at bedside reports very poor p.o. intake for the past month. Denies fever/chills, urinary symptoms or recent illness. Nephrology consulted for DARA, leading differential diagnosis includes progression of cancer, prerenal iso poor intake vs RTA. 01/26/25: Patient seen examined at bedside. Endorses anxiety and shortness of breath due to stomach fullness. States very poor appetite and when attempting to drink currently feels nauseous. Daughter at bedside emotional regarding current situation, also states that Zofran does not alleviate nausea. Recommend Phenergan or Reglan as well as mirtazapine as patient does endorse anxiety with low appetite. 01/27/25: Patient seen and examined at bedside. Overnight desaturaturated and CXR shows moderate CHF with large R pleural effusion. Feels better than yesterday following afternoon lasix yesterday. Still low appetite. Daughter and son at bedside, all questions adequately answered. Patient requests to go to rehab following discharge. Recommend albumin with Lasix and start sodium bicarb 650 mg QD. 01/28/25: Patient seen and examined at bedside with daughter Miesha and son Favian. Patient reports feeling very fatigued still with little appetite, although did eat cereal today. Per radiation oncology, does not need PCP referral and would like to see patient on Saturday for radiation. Cr increased to 1.6 from 1.3 with decrease in GFR as well following albumin and lasix yesterday. Will not give additional lasix or fluids at this time. Start albumin 25 g BID. Due to worsening R breast lesion, recommend surgical consult for possible mastectomy if patient is a candidate. 01/29/25: Patient seen examined at bedside with daughter. Reports extreme fatigue with persistent low appetite. Creatinine continues to increase at 1.9 with GFR decreased to 32. Per primary team, start 500 cc of NS at 75 cc/hr. avoid Lasix administration as patient is clinically dry however edematous due to third spacing. Continue albumin 25 g twice daily. 01/30/25: Patient seen and examined at bedside in ICU with daughter sisters. Patient is very lethargic low energy to respond to questions overnight patient was upgraded to ICU due to bleed as well as deteriorating state. Multiple goals of care conversations done regarding CODE STATUS patient is currently now DNR/DNI and will likely pursue comfort measures at this time however family will still discuss. From a renal standpoint, metastasis likely contributing to deteriorating state and low expectation for renal recovery. BUN 101 and creatinine increased from 2.2 to 2.6 GFR now 22. Exam Vital Signs Temp Pulse Resp BP Pulse Ox O2 Del Method O2 Flow Rate 97.5 F 111 H 22 H 104/49 L 100 High Flow Nasal Cannula 35 01/30/25 10:55 01/30/25 11:13 01/30/25 11:13 01/30/25 10:55 01/30/25 11:13 01/30/25 08:00 01/30/25 11:13 FiO2 65 01/30/25 11:13 Narrative Exam GENERAL: AOx3, no acute distress, fatigued, diaphoretic, pale, on high flow 35L HEENT: mucous membranes dry, bilateral sclera anicteric CARDIOVASCULAR: regular rhythm, tachycardic, S1/S2 present, no murmurs appreciated PULMONARY: mild bilateral crackles L>R, mildly decreased breath sounds R>L, increased work of breathing ABDOMINAL: soft, non-tender, non-distended, no rebound/guarding, bowel sounds present EXTREMITIES: non pitting edema BLE, 2+ pitting edema at hips SKIN: warm and dry, R breast lesion worsening and larger, covered with allevyn dressings NEURO: CN II-XII grossly intact, no focal deficits, alert, following commands Objective Labs 01/30/25 05:00 01/30/25 05:00 Labs: Laboratory Results - last 24 hr 01/29/25 01/30/25 01/30/25 16:24 05:00 08:23 WBC 16.0 H RBC 2.03 L Hgb 6.0 L* D Hct 18.3 L* MCV 90 MCH 29.6 MCHC 32.8 RDW Std Deviation 51.4 H Plt Count 74 L Neut % (Auto) 68 Lymph % (Auto) 15 [place] % (Auto) 6 Eos % (Auto) 0 Baso % (Auto) 0 Neut # (Auto) 10.9 H Lymph # (Auto) 2.4 [place] # (Auto) 0.9 H Eos # (Auto) 0.0 Baso # (Auto) 0.0 Immature Gran # (Auto) 1.78 H Absolute Nucleated RBC 1.10 H Immature Gran % 11 H Nucleated RBC % 7 H PT 14.6 H INR 1.4 H APTT 35.0 Sodium 127 L 127 L Potassium 5.4 H 5.8 H Chloride 92 L 92 L Carbon Dioxide 19.2 L 18.3 L Anion Gap 16 17 H BUN 78 H 101 H* Creatinine 2.2 H 2.6 H Estim Creat Clear Calc 28.7 L 24.3 L eGFR 26 L 22 L BUN/Creatinine Ratio 35 H 39 H Glucose 269 H 297 H Calculated Osmolality 287 297 H Lactic Acid 5.7 H* Calcium 10.6 10.2 Corrected Calcium 10.8 H 10.6 H Phosphorus 4.6 5.2 H Magnesium 2.7 H Total Bilirubin 1.2 AST 343 H ALT 298 H Alkaline Phosphatase 384 H D Total Protein 5.5 L Albumin 3.8 3.5 Globulin 2.0 L Albumin/Globulin Ratio 1.8 Misc Test Result Platelets confirmed Blood Type O Negative Antibody Screen NEGATIVE Crossmatch See Detail Blood Bank Wristband ID Yes Quality Measures Quality Measures VTE prophylaxis Assessment & Plan Assessment Current Active Medications: Generic Name Dose Route Start Last Admin Trade Name Freq PRN Reason Stop Dose Admin Morphine Sulfate 4 mg 01/30/25 10:46 01/30/25 11:55 Morphine Sulf Inj 4 Mg/Ml Vial IVP 02/04/25 10:45 4 mg Q30MIN PRN Administration Distress, agitation, pain Morphine Sulfate 4 mg 01/30/25 10:46 Morphine Sulf Inj 4 Mg/Ml Vial IVP 02/04/25 10:45 Q15MIN PRN BREAKTHROUGH PAIN Plan Kym Zapata 49F pmx significant for NIDDM2 and left invasive ductal carcinoma (Onco Dr. Koo) s/p lumpectomy 2022 and radiation 2023 presents with bilateral lower extremity swelling shortness of breath x 3 days, found to have mets to R breast, liver, adrenal glands, and brain (cerebellar and cerebral) with R hilar and abdominal lymphadenopathy. #DARA, likely prerenal 2/2 widespread metastasis #UTI, E.coli pansensitive On admission Cr 1.1, baseline 0.9-1.1, however on 01/24, Cr 1.4 and increased to 1.6. During this admission, mets discovered to R breast, liver, adrenal glands, and brain (cerebellar and cerebral) with R hilar and abdominal lymphadenopathy. Renal US bilateral renal cortical thinning, mild renal scarring, no hydronephrosis FeNa 0.2% and FeUr 29.7%, both indicating prerenal etiology Ddx: decreased PO intake iso cancer with mets with contrast nephropathy and/or administration of lasix vs hepatorenal Plan: - Comfort measures - Avoid nephrotoxic medications and renally dose. Avoid contrast. #Hyponatremia #Hyperkalemia #Hypercalcemia On admission Na 129, when on 11/2024 Na 143. No hx of hyponatremia. On 01/25, K 5.2. Ddx: 2/2 progression of carcinoma vs poor PO intake Plan: - Bicitral 30 mL BID and salt tabs 1g QD - CTM electrolytes - Encourage PO intake, continue mirtazapine # Invasive ductal carcinoma metastasis to right breast, liver, lymph nodes, adrenal glands, brain # Large right pleural effusion # Bilateral pitting edema # Large right pleural effusion # Congestive heart failure # ?CAP Plan: - Above managed by primary team Plan of care discussed with attending Dr. Anand. Marlena Simmons, DO PGY-1 Internal Medicine Attending Provider Attestation/Addendum Patient seen and examined with resident physician Dr. Simmons. Note reviewed, agree with findings and recommendations. Admitted with weakness, noted to have acute liver failure, acute renal failure, Metastatic breast cancer. Prognosis very poor. Currently with acute hypoxic respiratory failure. Noted ICU team did talk to the family and made her comfort care. Family at bedside.
--- NOTE | 2025-01-30 13:10 | PC.SS ---
Addendum entered by Homa Hernandez 01/30/25 16:15: Submitted hospice referral via [facility] to [facility]. SS connected with Stacey from [facility] who stated they can meet with patient's daughter at [facility] this evening. Transportation was arranged with [facility] [phone], transportation scheduled for 1999 via [facility]. CHRIS Abdalla, CHARIS Patterson, [facility] Stacey, and patient's daughter Miesha informed of transportation set for 1999. Addendum entered by Homa Hernandez 01/30/25 14:37: informed Dr. Kumar hospice referral needed and disposition needs to be updated to reflect SNF with hospice. [facility] requesting patient can be accepted today at 1999. Original Note: Informed by Dr. Zaragoza family would like to initiate comfort care. Patient's daughter requesting information regarding SNF w/hospice VS. Home w/hospice. Nina Pang was present and Miesha Pang was contacted via telephone by Nina to confirm disposition. Miesha stated no one can care for patient at home with hospice. At this time, Miesha has requested to have patient discharge to [facility]F [facility] with hospice. Miesha made aware of hospice agencies aligned with [facility], [facility] or [facility]. She has selected [facility]. SS connected with [facility] and she stated she can accept patient with hospice, [facility] mentioned their SNF is contracted with [facility] and [facility] only, at this time.
[2025-01-30] MEDS: LORazepam 2 MG/ML VIAL 1 MG IVP (14:45)
--- NOTE | 2025-01-30 16:39 | ESDS_ITS ---
<Statement entered by Izzy Acuna DO - 01/31/25 15:55> I, Izzy Acuna DO, attest that I was physically present for the forrest portions of the service and evaluated the patient with the resident and I reviewed and discussed the case with the resident and agree with the resident's findings and plans of care as documented above Planned Discharge Date 01/30/25 DS: Providers Provider Date of admission: 01/22/25 15:56 Primary care physician: Brian Castano Admitting Provider: Pablo Askew DO Attending Provider on Admission: Meng Cook MD Consults: 01/22/25 15:59 Consult to Oncology Urgent Comment: Possible cancer recurrence with mets Consulting Provider: Willy Cabello 01/23/25 12:00 Consult to Pulmonology Urgent Comment: Mod. Right Pleural Effusion Consulting Provider: Brandon Chapin I 01/24/25 14:45 Consult to Oncology Routine Comment: Breast cancer with extensive metastasis Consulting Provider: Festus Koo 01/25/25 10:56 Consult to Nephrology Urgent Comment: DARA Consulting Provider: Connie Anand 01/27/25 08:43 Referral Physical Therapy Routine Comment: Physician Instructions: 01/30/25 08:19 Consult to Gastroenterology Routine Comment: Consulting Provider: Wood Cherry 01/30/25 14:35 Referral Hospice Stat Comment: Attending Provider on DC: Izzy Acuna MD Discharging Provider: Izzy Acuna MD Anticipated date of discharge: 01/30/25 DS: Diagnosis Problem List Completed Was Problem List Reviewed/Reconciled?: Yes Hospital Course Hospital Course Hospital course: Hospital Course: Ms. Zapata is a 49-year-old female with past medical history T2DM and left invasive ductal carcinoma status post lumpectomy 2022 and radiation 2023 presented on 01/22/2025 with bilateral lower extremity swelling shortness of breath x 3 days. Patient was admitted to the hospital for acute hypoxic respiratory failure secondary to large right pleural effusion which was revealed on chest x-ray. CT abdomen pelvis obtained in the ER showed significant metastasis of breast cancer to right breast, liver, lymph node and adrenal glands. Oncology was consulted on admission as well, bilateral lower extremity venous Doppler obtained was negative for DVT, echocardiogram showed EF 60 to 65%, indeterminate diastolic dysfunction, patient received IV diuresis due to anasarca, renal ultrasound shows bilateral renal cortical thinning, nephrology was consulted due to progressively worsening renal function, patient was tried on multiple trial of IV fluid and Lasix and there was no improvement. During hospitalization CT scan of the head was obtained which showed numerous cerebellar and cerebral metastatic lesion, pulmonology was consulted for possible thoracentesis however there was not enough fluid for drainage. Due to underlying progressive worsening renal function and significant metastatic cancer, goals of care discussion was held with patient's family as patient was encephalopathic and unable to hold conversation, initially patient was made DNR/DNI however later in the evening family decided to switch to full code. Overnight 01/29 patient was upgraded to intensive care unit because of active rectal bleeding, patient was given RBC, platelets and FFP was ordered however in the morning goals of care discussion was held by church official team and patient was transition to comfort focused treatment. [facility] with [facility]. Patient is stable for discharge. Discharge Diagnoses: #Acute encephalopathy #Acute hypoxemic respiratory failure #Anasarca #Congestive heart failure exacerbation #Hepatocardiac syndrome #Hemorrhagic shock #Active GI bleed, Acute rectal bleed #Acute blood loss anemia in the setting of hemolysis secondary to metastatic disease #Hyperglycemia due to stress # Large right pleural effusion # Invasive ductal carcinoma metastasis to right breast, liver, lymph nodes, adrenal glands, brain # Large right pleural effusion # Elevated RVSP #DARA #Electrolyte imbalance #Hyponatremia #Hyperkalemia #Depression Case discussed with Attending Physician Dr. Izzy Craig MD Internal Medicine PGY-2 Disclaimer: This note was dictated by speech recognition. Minor errors in biology laboratory assistant may be present due to voice recognition software. Time Spent with Patient Time attestation: Total time spent providing and/or coordinating discharge services: Time spent: Greater than 30 minutes Exam Vital Signs Temp Pulse Resp BP Pulse Ox O2 Del Method O2 Flow Rate 97.7 F 108 H 16 87/50 L 93 L Nasal Cannula 4 01/30/25 16:00 01/30/25 16:00 01/30/25 16:00 01/30/25 16:00 01/30/25 16:00 01/30/25 16:00 01/30/25 16:00 FiO2 65 01/30/25 11:13 Narrative Exam GENERAL: Somnolent, no acute distress, tired on supplemental oxygen CARDIOVASCULAR: Sinus tachycardia, regular rhythmg ABDOMINAL: Nondistended EXTREMITIES: Bilateral lower extremity edema NEURO: Somnolent, not in any acute distress. Limited physical exam as patient on comfort measures Discharge Plan Plan Patient Disposition: Xfer Skilled Nsg Fac (SNF) Care Plan Goals: COMFORT MEASURES as per [facility] Follow up with Hospice physician Prescriptions/Referrals Prescriptions/Med Rec: Discontinued Rybelsus 14 mg Tablet 14 mg PO QDAY anastrozole 1 mg tablet 1 mg PO .q day Patient Comments: TOME 1 TABLETA POR V A ORAL TODOS LOS D Referrals: Brian Castano [Primary Care Provider] Festus Koo MD [Physician, Radiation Oncology] Patient/Caregiver Discharge Instructions Education Materials: Hospice: [facility], Cancer Overview Print Language: Lithuanian Stand Alone Forms: Miesha Award Info., Patient Portal Info Letter Discharge Order Discharge Orders: Discharge (Routine); Ordered 01/30/25 Ordered By: Kelly Kumar Quality Discharge Quality Measures comfort care/end of life
[2025-01-30] MEDS: SCOPOLAMINE 1 MG TDSY TOP (17:44)
--- NOTE | 2025-01-30 20:20 | PC.NURSE ---
[facility] arrived @ 1999[facility]. Ambulance depart @ 2019
== END 2025-01-30 20:19 | disposition skilled nursing facility (03) | DRG 382 ==
LOC: SERX 09:59 → SERHOLD 15:59 → S2NX 17:59 → S3SX 21:07 → S2NX 01-29 14:25 → S2SX 01-30 05:19
PROVIDERS: Internal Medicine; Nurse Practitioner Family; Admitting Provider Student in an Organized Health Care Education/Training Program; Emergency Provider Family Medicine; PCP Physician Assistant; Visit Provider Student in an Organized Health Care Education/Training Program
DX: C50.912 Malignant neoplasm of unspecified site of left female breast (principal); C79.31 Secondary malignant neoplasm of brain; Z17.32 Human epidermal growth factor receptor 2 negative status; R91.1 Solitary pulmonary nodule; C79.71 Secondary malignant neoplasm of right adrenal gland; C79.72 Secondary malignant neoplasm of left adrenal gland; C78.7 Secondary malignant neoplasm of liver and intrahepatic bile duct; I50.9 Heart failure, unspecified; C77.9 Secondary and unspecified malignant neoplasm of lymph node, unspecified; C79.51 Secondary malignant neoplasm of bone; E83.52 Hypercalcemia; Z92.3 Personal history of irradiation; Z90.12 Acquired absence of left breast and nipple; D62 Acute posthemorrhagic anemia; E11.65 Type 2 diabetes mellitus with hyperglycemia; E87.1 Hypo-osmolality and hyponatremia; E87.5 Hyperkalemia; E88.09 Other disorders of plasma-protein metabolism, not elsewhere classified; F41.9 Anxiety disorder, unspecified; F32.A Depression, unspecified; J96.01 Acute respiratory failure with hypoxia; K72.00 Acute and subacute hepatic failure without coma; J91.8 Pleural effusion in other conditions classified elsewhere; K92.2 Gastrointestinal hemorrhage, unspecified; I07.1 Rheumatic tricuspid insufficiency; Z79.84 Long term (current) use of oral hypoglycemic drugs; N17.9 Acute kidney failure, unspecified; J18.9 Pneumonia, unspecified organism; G93.40 Encephalopathy, unspecified; N39.0 Urinary tract infection, site not specified; Z51.5 Encounter for palliative care; Z66 Do not resuscitate; Z79.4 Long term (current) use of insulin
CPT/HCPCS: 36415; 70470; 71045; 71046; 74177; 76641; 76770; 76999; 78306; 80053; 80069; 80307; 81001; 82436; 82570; 83605; 83615; 83735; 83880; 84100; 84133; 84156; 84300; 84484; 84540; 84550; 85014; 85018; 85025; 85610; 85730; 86850; 86900; 86901; 86923; 86927; 86965; 87077; 87086; 87186; 87635; 93005; 93225; 93306; 93970; 94640; 94664; 96374; 96375; 97162; 99284; A4649; A9270; A9503; J0456; J0696; J1171; J1200; J1644; J1720; J1815; J1938; J2060; J2270; J2405; J2470; J2543; J3430; J3490; J7030; J7050; J7120; J7999; P9016; P9035; P9047; Q9967